=== PATIENT | male | born 1960 | race Caucasian/White ===

== ENCOUNTER 2022-04-14 18:31 | Emergency (ER) | payer BC, SELFPAY ==
[2022-04-14 19:08] VITALS: BP 163/93; PULSE 73; RESP 16; TEMP 36.3; O2SAT 97; BMI 28.8
--- NOTE | 2022-04-14 19:19 | ED_ITS ---
HPI - Dizziness General: Chief Complaint: Dizziness Stated Complaint: Fingers\Hands\Feet Numb Time Seen by Provider: 04/14/22 19:19 History of Present Illness: HPI Narrative: Mr. Daily is a 61-year-old gentleman without significant past medical history presenting to the emergency department due to dizziness and sensory changes in his very distal extremities. He reports a somewhat complex recent history approximately 4 weeks ago had upper respiratory symptoms and was initially diagnosed with COVID however subsequently diagnosed with a sinus infection which was treated with antibiotics. He felt improved after the antibiotics and had recent dental work for which he completed another course of antibiotics. Additionally they are visiting from [place] of state and had a recent [address] He reports yesterday having onset of dizziness which is a spinning and unsteady feeling worse with standing and trying to ambulate. Additionally notes his fingers and toes will become numb at the tips when he ambulates as well. He denies associated neck pain or back pain. He denies similar frequent episodes in the past. Intensity symptoms when present is moderate to severe. Course has persisted. No other specific changes in health, exacerbating, or alleviating factors identified. Onset (ago): hour(s) Timing: gradual onset Severity: moderate Context: change in body position, recent illness and other History of similar symptoms: No Exacerbating factors: movement/ambulation and change in body position Relieving factors: nothing Associated symptoms: Reports other Review of Systems General: Reports: 10 or more systems reviewed and unremarkable except in HPI and below [facility] ED PFSH: Medical History HTN (hypertension) Surgical History History of dental surgery Family History Other Diabetes Social History Smoking and tobacco status: never smoked Alcohol intake: never Substance/Drug Use: never Household members: spouse Housing: House Physical Exam Const: COMMON NORMALS: patient oriented x3 and alert GENERAL APPEARANCE: cooperative and well developed HENMT: COMMON NORMALS: normocephalic, atraumatic and TM's normal bilaterally HEAD & SCALP: normocephalic and atraumatic TYMPANIC MEMBRANE: TM's normal bilaterally THROAT: posterior oropharynx normal Eye: COMMON NORMALS: conjunctivae normal CONJUNCTIVA: Yes conjunctivae normal SCLERA: sclerae normal Neck/C-Spine: COMMON NORMALS: supple GENERAL: Yes trachea midline Resp: COMMON NORMALS: clear to auscultation bilaterally EFFORT & INSPECTION: Yes able to speak in complete sentences AUSCULTATION: clear to auscultation bilaterally Cardio: COMMON NORMALS: regular rate and regular rhythm RATE: regular rate RHYTHM: regular rhythm GI: COMMON NORMALS: Soft to palpation PALPATION: Yes Soft to palpation and No Tenderness to palpation present (GI) Extremity: GENERAL: Yes normal exam except as noted and No edema Neuro: COMMON NORMALS: patient oriented x3, CN's II-XII intact bilaterally, moves all extremities, no focal motor deficits and gait normal; negative for no sensory deficits noted (Subjective very distal finger and toe sensory changes, no isolated nerve di) SENSORIUM/ORIENTATION: Yes alert and No Orientation impaired Psych: COMMON NORMALS: mental status grossly normal and Normal thought process present THOUGHT PROCESS: Normal thought process present Course Vital Signs: Vital signs: Vital Signs Temperature 97.4 F L 04/14/22 19:08 Pulse Rate 74 04/14/22 23:55 Respiratory Rate 16 04/14/22 23:55 Blood Pressure 156/89 04/14/22 23:55 Pulse Oximetry 98 04/14/22 23:55 Oxygen Delivery Me thod 04/14/22 19:08 [facility] - Dizziness Medical Decision Making 61-year-old gentleman, presenting with dizziness that is somewhat positional. on exam also endorses bilateral upper and lower extremity end distal sensory changes, no appreciable weakness. i cannot elicit dizziness on exam. no objective findings. Description of dizziness seem to be more vertiginous in nature though in absence of reproducible symptoms somewhat unclear and certainly requires further ED work-up. Labs with no significant hematologic or metabolic abnormalities to explain symptoms. Rapid flu and COVID-negative. CT and CTA negative for acute pathology to explain symptoms, age-appropriate atherosclerotic disease extracranial and intracranial. The patient did have some improvement with fluids, magnesium, meclizine, Reglan, Benadryl. Is on ED evaluation at this point the exact cause of symptoms is unclear though likely vertiginous in nature. The results of ED evaluation were discussed with the patient including prescriptions and/or symptomatic cares (if applicable) including appropriate and responsible use, followup plan, and return precautions. The patient verbalized understanding and felt safe for discharge. Medical Records I reviewed the patient's medical records. Lab Data I reviewed the patient's lab results. 04/14/22 20:20 04/14/22 20:20 Radiology Impressions Head/Neck CTA 04/14/22 19:32 IMPRESSION: 1. No large vessel stenosis or occlusion. 2. Mild diffuse atherosclerotic disease, age-appropriate. IMPRESSION: 1. No stenosis or occlusion. 2. Mild diffuse atherosclerotic disease, age-appropriate. REFERENCES: NASCET CRITERIA. The degree of stenosis in the cervical segment of the internal carotid artery is based on NASCET criteria. Normal is no stenosis. Mild is less than 50% stenosis. Moderate is 50-69% stenosis. Severe is 70% to 99% stenosis. Total occlusion is no detectable patent lumen. Laboratory Results WBC 8.2 10^3/uL (4.0-10.0) 04/14/22 20:20 RBC 4.90 10^6/uL (4.1-5.3) 04/14/22 20:20 Hgb 15.3 g/dL (11.7-16.6) 04/14/22 20:20 Hct 44.4 % (42.0-52.0) 04/14/22 20:20 MCV 90.6 fl (80-94) 04/14/22 20:20 MCH 31.2 pg (28.0-34.0) 04/14/22 20:20 MCHC 34.5 g/dL (30.0-36.0) 04/14/22 20:20 RDW 12.3 % (12.1-15.1) 04/14/22 20:20 Plt Count 228 10^3/cmm (130-400) 04/14/22 20:20 MPV 8.9 fL (7.4-10.4) 04/14/22 20:20 Neut % (Auto) 58.9 % 04/14/22 20:20 Lymph % (Auto) 29.7 % 04/14/22 20:20 [place] % (Auto) 8.0 % 04/14/22 20:20 Eos % (Auto) 2.7 % 04/14/22 20:20 Baso % (Auto) 0.5 % 04/14/22 20:20 Neut # (Auto) 4.83 10^3/uL (1.8-7.7) 04/14/22 20:20 Lymph # (Auto) 2.4 10^3/uL (0.8-4.8) 04/14/22 20:20 [place] # (Auto) 0.7 10^3/uL (0.2-0.9) 04/14/22 20:20 Eos # (Auto) 0.2 10^3/uL (0.0-0.8) 04/14/22 20:20 Baso # (Auto) 0.0 10^3/uL (0.0-0.1) 04/14/22 20:20 Nucleated RBC % (auto) 0 % 04/14/22 20:20 Nucleated RBCs # 0.0 /100WBC 04/14/22 20:20 Sodium 136 mmol/L (136-145) 04/14/22 20:20 Potassium 4.1 mmol/L (3.5-5.1) 04/14/22 20:20 Chloride 102 mmol/L (98-107) 04/14/22 20:20 Carbon Dioxide 22 mmol/L (22-29) 04/14/22 20:20 Anion Gap 16.1 (5-19) 04/14/22 20:20 BUN 12 mg/dL (8-23) 04/14/22 20:20 Creatinine 0.8 mg/dL (0.7-1.2) 04/14/22 20:20 GFR Calculation 98.0 mL/min (90-130) 04/14/22 20:20 Glucose 102 mg/dL (65-115) 04/14/22 20:20 Calculated Osmolality 282 mOsm/kg (285-295) L 04/14/22 20:20 Calcium 9.9 mg/dL (8.5-10.5) 04/14/22 20:20 Total Bilirubin 0.3 mg/dL (0.15-1.2) 04/14/22 20:20 AST 20 U/L (0-40) 04/14/22 20:20 ALT 21 U/L (0-41) 04/14/22 20:20 Alkaline Phosphatase 86 U/L (40-130) 04/14/22 20:20 Total Protein 7.0 g/dL (6.6-8.7) 04/14/22 20:20 Albumin 4.1 g/dL (3.5-5.2) 04/14/22 20:20 Globulin 2.9 g/dL (1.3-4.6) 04/14/22 20:20 TSH 1.21 uIU/mL (0.27-4.20) 04/14/22 20:20 Influenza Type A Ag negative (Negative) 04/14/22 22:19 Influenza Type B Ag negative (Negative) 04/14/22 22:19 SARS-CoV-2 Ag (Rapid) negative (Negative) 04/14/22 22:19 Discharge Plan Discharge Patient Disposition: Home Clinical Impression: Dizziness, Paresthesia of both hands, Paresthesia of both feet Condition: Stable Prescriptions: New meclizine 25 mg tablet 25 mg PO TID PRN (Reason: dizziness) Qty: 20 0RF ondansetron 4 mg tablet,disintegrating 4 mg PO Q8H PRN (Reason: nausea and vomiting) Qty: 15 0RF No Action Tylenol 325 mg Tablet 650 mg PO QID PRN (Reason: Pain) allopurinol 300 mg Tablet 300 mg PO DAILY Discharge Orders: Discharge ED (Routine); Ordered 04/14/22 Ordered By: Juan Manuel Lin Discharge Diet: Usual diet Discharge Activity: Increase activity as tolerated Patient Instructions: Vertigo (ED), Paresthesia (ED), Dizziness (ED) Activity Restrictions/Additional Instructions: Thank you for visiting the emergency department. You were seen and evaluated for dizziness and paresthesias. The exact cause of your symptoms is unclear though does not appear to need hospitalization at this time. Please follow-up with your primary care provider. If dizziness episodes persist you may be referred for vestibular therapy. Return to the emergency department for uncontrolled symptoms or anything else that you are concerned about and feel needs emergency department evaluation. Coding Level of Care Code ED [employer] for Juan J Vergara
--- NOTE | 2022-04-14 19:32 | CTR_ITS ---
PROCEDURE INFORMATION: Exam: CTA Head With Contrast, Arteriography Exam date and time: 04/14/2022 8:36 PM Age: 61 years old Clinical indication: Dizziness and giddiness and numbness; Additional info: Dizziness, tingling in bilateral distal extremities TECHNIQUE: Imaging protocol: Computed tomographic angiography of the head with contrast. Exam focused on the arteries. 3D rendering (Not supervised by radiologist): MIP and/or 3D reconstructed images were created by the technologist. Radiation optimization: All CT scans at this facility use at least one of these dose optimization techniques: automated exposure control; mA and/or kV adjustment per patient size (includes targeted exams where dose is matched to clinical indication); or iterative reconstruction. Contrast material: OMNI 350; Contrast volume: 100 ml; Contrast route: INTRAVENOUS (IV); COMPARISON: No relevant prior studies available. RADIATION DOSE METRICS: Total DLP (mGy-cm): 1012.97 FINDINGS: ANTERIOR CIRCULATION: Right internal carotid artery: Intracranial segment is patent with no significant stenosis. No aneurysm. Right middle cerebral artery: No occlusion or significant stenosis. No aneurysm. Right anterior cerebral artery: No occlusion or significant stenosis. No aneurysm. Left internal carotid artery: Intracranial segment is patent with no significant stenosis. No aneurysm. Left middle cerebral artery: No occlusion or significant stenosis. No aneurysm. Left anterior cerebral artery: No occlusion or significant stenosis. No aneurysm. POSTERIOR CIRCULATION: Right vertebral artery: No occlusion or significant stenosis. No aneurysm. Left vertebral artery: No occlusion or significant stenosis. No aneurysm. Basilar artery: No occlusion or significant stenosis. No aneurysm. Right posterior cerebral artery: No occlusion or significant stenosis. No aneurysm. Left posterior cerebral artery: No occlusion or significant stenosis. No aneurysm. Brain: No focal hemorrhage or midline shift identified. Mild age-related changes, age-appropriate. Cerebral ventricles: No evidence of ventriculomegaly or hydrocephalus. The ventricles seem age-appropriate. Bones/joints: Unremarkable. No acute fracture. Soft tissues: Unremarkable. PROCEDURE INFORMATION: Exam: CTA Neck With Contrast Exam date and time: 04/14/2022 8:36 PM Age: 61 years old Clinical indication: Dizziness and giddiness and numbness; Additional info: Dizziness, tingling in bilateral distal extremities TECHNIQUE: Imaging protocol: Computed tomographic angiography of the neck with contrast. 3D rendering (Not supervised by radiologist): MIP and/or 3D reconstructed images were created by the technologist. Radiation optimization: All CT scans at this facility use at least one of these dose optimization techniques: automated exposure control; mA and/or kV adjustment per patient size (includes targeted exams where dose is matched to clinical indication); or iterative reconstruction. Contrast material: OMNI 350; Contrast volume: 100 ml; Contrast route: INTRAVENOUS (IV); COMPARISON: No relevant prior studies available. RADIATION DOSE METRICS: Total DLP (mGy-cm): 1012.97 FINDINGS: Right common carotid artery: No stenosis. No dissection or occlusion. Right internal carotid artery: No stenosis of the extracranial segment. No dissection or occlusion. Right external carotid artery: No occlusion or high-grade stenosis identififed. Left common carotid artery: No stenosis. No dissection or occlusion. Left internal carotid artery: No stenosis of the extracranial segment. No dissection or occlusion. Left external carotid artery: No occlusion or high-grade stenosis identififed. Right vertebral artery: No stenosis. No dissection or occlusion. Left vertebral artery: No stenosis. No dissection or occlusion. Soft tissues: No significant soft tissue swelling or other acute finding noted. Bones/joints: No acute fracture. Lungs: Slight upper lung atelectasis or scarring. CT/CT angio headneck* [id number] IMPRESSION: 1. No large vessel stenosis or occlusion. 2. Mild diffuse atherosclerotic disease, age-appropriate. IMPRESSION: 1. No stenosis or occlusion. 2. Mild diffuse atherosclerotic disease, age-appropriate. REFERENCES: NASCET CRITERIA. The degree of stenosis in the cervical segment of the internal carotid artery is based on NASCET criteria. Normal is no stenosis. Mild is less than 50% stenosis. Moderate is 50-69% stenosis. Severe is 70% to 99% stenosis. Total occlusion is no detectable patent lumen.
[2022-04-14 20:30] LABS: Basophils % 0.5 %; Eosinophils # 0.2 10^3/uL (0.0-0.8); Eosinophils % 2.7 %; Hematocrit 44.4 % (42.0-52.0); Hemoglobin 15.3 g/dL (11.7-16.6); Lymphocytes # 2.4 10^3/uL (0.8-4.8); Lymphocytes % 29.7 %; Mean Corpuscular HGB Conc 34.5 g/dL (30.0-36.0); Mean Corpuscular Hemoglobin 31.2 pg (28.0-34.0); Mean Corpuscular Volume 90.6 fl (80-94); Mean Platelet Volume 8.9 fL (7.4-10.4); Monocytes # 0.7 10^3/uL (0.2-0.9); Neutrophils # 4.83 10^3/uL (1.8-7.7); Neutrophils % 58.9 %; Nucleated Red Blood Cells % 0 %; Platelet Count 228 10^3/cmm (130-400); Red Cell Distribution Width 12.3 % (12.1-15.1); White Blood Count 8.2 10^3/uL (4.0-10.0)
[2022-04-14] MEDS: meclizine 25 mg tablet PO (20:33)
[2022-04-14] MEDS: sodium chloride 0.9% 1,000 ML 999 ML IV (20:33)
[2022-04-14] MEDS: iohexol 350 mg/mL 500 mL Btl (per mL) IV (20:38)
[2022-04-14 21:07] LABS: Alanine Aminotransferase 21 U/L (0-41); Albumin Level 4.1 g/dL (3.5-5.2); Alkaline Phosphatase 86 U/L (40-130); Anion Gap 16.1 (5-19); Aspartate Amino Transferase 20 U/L (0-40); Blood Urea Nitrogen 12 mg/dL (8-23); Calcium 9.9 mg/dL (8.5-10.5); Carbon Dioxide 22 mmol/L (22-29); Chloride 102 mmol/L (98-107); Globulin 2.9 g/dL (1.3-4.6); Glucose 102 mg/dL (65-115); Osmolality Calculated 282 mOsm/kg (285-295); Potassium 4.1 mmol/L (3.5-5.1); Sodium 136 mmol/L (136-145); Thyroid Stimulating Hormone 1.21 uIU/mL (0.27-4.20); Total Bilirubin 0.3 mg/dL (0.15-1.2)
[2022-04-14] MEDS: metoclopramide 5 mg/mL SDV 2 mL IVP (22:20)
[2022-04-14] MEDS: diphenhydrAMINE 50 mg/mL SDV 1mL 12.5 MG IVP (22:20)
[2022-04-14 23:09] LABS: Influenza A by IFA negative (Negative); Influenza B by IFA negative (Negative); SARS Covid-2 Antigen negative (Negative)
[2022-04-14 23:55] VITALS: BP 156/89; PULSE 74; RESP 16; O2SAT 98
== END 2022-04-14 23:45 | disposition home or self-care (01) ==
PROVIDERS: Emergency Provider Emergency Medicine
DX: R42 Dizziness and giddiness (principal); R20.2 Paresthesia of skin; Z20.822 Contact with and (suspected) exposure to COVID-19; I10 Essential (primary) hypertension
CPT/HCPCS: 70496; 70498; 80053; 84443; 85025; 87426; 87804; 96365; 96375; 99285; J1200; J2765; J3475; J7030; J8597; Q9967

== ENCOUNTER 2022-04-15 18:08 | Inpatient (IN) | payer BC, SELFPAY ==
[2022-04-15] VITALS (22 sets, daily range): BP systolic 120–188; BP diastolic 80–123; PULSE 66–95; RESP 14–24; TEMP 36.6; O2SAT 93–99; BMI 28.8
--- NOTE | 2022-04-15 20:48 | ED_ITS ---
HPI - Extremity Problem General: Chief complaint: Extremity Problem,Nontraumatic Stated complaint: numbness in bilateral hands and feet, cp, sob Time Seen by Provider: 04/15/22 19:35 History of Present Illness: 61-year-old gentleman returns to the emergency department today for further evaluation of continued dizziness with worsening numbness and difficulty ambulating. Patient was seen last night for similar without clear etiology identified on ED evaluation and some improvement with ED treatment as if symptoms are vertiginous. Patient has unfortunately developed more progressive sensory changes, back pain, and difficulty ambulating. Denies any other new focal neurologic findings. Intensity symptoms has become severe. Denies similar episodes in the past. Again symptoms were preceded by a somewhat complex course of infection. Onset (ago): day(s) Location: left, right, upper extremity and lower extremity Quality: other Relieving factors: nothing Exacerbating factors: range of motion, weight bearing, walking and exertion Associated symptoms: Reports chest pain, short of breath and other Review of Systems General: Reports: 10 or more systems reviewed and unremarkable except in HPI and below Card: Reports: chest pain [facility] ED PFSH: Medical History HTN (hypertension) Surgical History History of dental surgery Family History Other Diabetes Social History Smoking and tobacco status: never smoked Alcohol intake: never Substance/Drug Use: never Household members: spouse Housing: House Physical Exam Const: COMMON NORMALS: alert GENERAL APPEARANCE: cooperative and well developed HENMT: COMMON NORMALS: normocephalic and atraumatic HEAD & SCALP: normocephalic and atraumatic THROAT: posterior oropharynx normal Eye: COMMON NORMALS: conjunctivae normal CONJUNCTIVA: Yes conjunctivae normal SCLERA: sclerae normal Neck/C-Spine: COMMON NORMALS: supple GENERAL: Yes trachea midline Resp: COMMON NORMALS: clear to auscultation bilaterally EFFORT & INSPECTION: Yes able to speak in complete sentences AUSCULTATION: clear to auscultation bilaterally Cardio: COMMON NORMALS: regular rate and regular rhythm RATE: regular rate RHYTHM: regular rhythm GI: COMMON NORMALS: Soft to palpation PALPATION: Yes Soft to palpation and No Tenderness to palpation present (GI) PERCUSSION: normal to percussion Extremity: GENERAL: Yes normal exam except as noted and No edema Neuro: COMMON NORMALS: moves all extremities SENSORIUM/ORIENTATION: Yes alert and No Orientation impaired OTHER: Significant symmetric upper and lower extremity muscle weakness limiting tato ent's ability to ambulate. Gait is somewhat clumsy due to weakness. Subjective sensory changes have progressed mildly and now involve proximal midfoot and base of fingers. Significantly decreased lower extremity reflexes. Psych: COMMON NORMALS: mental status grossly normal and Normal thought process present THOUGHT PROCESS: Normal thought process present Procedures Lumbar Puncture Time Out Performed: Yes Patient Position: upright Skin Prep: Povidone-Iodine 1% Local Anesthetic: lidocaine 2% and with epi Amount of anesthesia used (mL): 6 Spinal Needle Gauge: 20G Interspace Used: L3-L4 Fluid Initially Obtained: clear Complications: none Course Vital Signs: Vital signs: Vital Signs Temperature 98.2 F 04/20/22 20:00 Pulse Rate 96 04/21/22 19:44 Respiratory Rate 22 H 04/21/22 19:44 Blood Pressure 143/75 04/21/22 16:30 Pulse Oximetry 92 04/21/22 19:44 Oxygen Delivery Me thod 04/21/22 19:44 Oxygen Flow Rate 30 04/20/22 08:55 Fraction of Inspir ed Oxygen 40 04/20/22 20:00 MDM - Extremity (Nontraumatic) Medical Decision Making 61-year-old gentleman presenting with worsening gait disturbance and sensory changes in upper and lower extremity distally. No cranial nerve abnormalities or nystagmus noted on exam. Patient does have diminished reflexes and ataxic gait. The symptoms are progressed since yesterday and now involves weakness. Prior labs and imaging reviewed. Labs notable for mild hemoconcentration/leukocytosis. Metabolic panel without acute derangement to explain symptoms. No UTI. Viral panel negative. Given recent viral syndrome atypical Guillain-Covarrubias? is a possibility and therefore we will proceed with lumbar puncture. Patient provided informed consent. Procedure was performed without apparent complication. CSF studies pending at time of admission however given patient's progression of symptoms of profound weakness patient requires inpatient treatment. Upon review patient does have elevated protein without clear etiology such as other abnormality and therefore Guillain-Covarrubias? is a strong consideration. The results of ED evaluation were discussed with the patient including plan for admission due to requirement for level of care not available if discharged to prevent significant worsening/deterioration. Patient agreeable with plan. Discussed with hospitalist service who was agreeable to admit patient. Medical Records I reviewed the patient's medical records. Lab Data I reviewed the patient's lab results. 04/15/22 20:28 04/15/22 20:28 Radiology Impressions Head MRI 04/16/22 02:09 IMPRESSION: 1. No diffusion-weighted abnormality or acute infarct. 2. Very minimal atrophy and small vessel ischemic disease. Cervical Spine MRI 04/16/22 08:53 IMPRESSION: 1. No significant central or foraminal stenosis. 2. No signal abnormality within the cord. 3. Mild facet arthritis as above. No stenosis. KUB X-Ray 04/18/22 08:50 IMPRESSION: 1. Bowel gas pattern is mildly distended but nonobstructive. 2. Mild stool burden. Chest CTA 04/18/22 12:00 IMPRESSION: There is consolidation in the right middle and bilateral lower lobes of the lung consistent with atelectasis and/or pneumonia. Head CT 04/18/22 12:10 IMPRESSION: No acute intracranial abnormality. Chest X-Ray 04/20/22 08:31 IMPRESSION: 1. No acute process noted. 2. Chronic right basal plaque atelectasis. Decreased lung volumes secondary to limited inspiration. No significant change. Laboratory Results WBC 10.5 10^3/uL (4.0-10.0) H 04/15/22 20: RBC 5.34 10^6/uL (4.1-5.3) H 04/15/22 20:28 Hgb 16.5 g/dL (11.7-16.6) 04/15/22 20: Hct 48.1 % (42.0-52.0) 04/15/22 20: MCV 90.1 fl (80-94) 04/15/22 20: MCH 30.9 pg (28.0-34.0) 04/15/22 20: MCHC 34.3 g/dL (30.0-36.0) 04/15/22 20: RDW 12.2 % (12.1-15.1) 04/15/22 20: Plt Count 255 10^3/cmm (130-400) 04/15/22 20: MPV 10.1 fL (7.4-10.4) 04/15/22 20: Neut % (Auto) 67.6 % 04/15/22 20: Lymph % (Auto) 22.4 % 04/15/22 20: [place] % (Auto) 7.7 % 04/15/22 20: Eos % (Auto) 1.6 % 04/15/22 20: Baso % (Auto) 0.5 % 04/15/22 20: Neut # (Auto) 7.07 10^3/uL (1.8-7.7) 04/15/22: Lymph # (Auto) 2.3 10^3/uL (0.8-4.8) 04/15/22: [place] # (Auto) 0.8 10^3/uL (0.2-0.9) 04/15/22: Eos # (Auto) 0.2 10^3/uL (0.0-0.8) 04/15/22 20: Baso # (Auto) 0.1 10^3/uL (0.0-0.1) 04/15/22: Nucleated RBC % (auto) 0 % 04/15/22: Nucleated RBCs # 0.0 /100WBC 04/15/22: ESR 16 mm/hr (0-10) H 04/15/22 20: Sodium 136 mmol/L (136-145) 04/15/22 20: Potassium 3.7 mmol/L (3.5-5.1) 04/15/22 20: Chloride 99 mmol/L (98-107) 04/15/22 20: Carbon Dioxide 24 mmol/L (22-29) 04/15/22: Anion Gap 16.7 (5-19) 04/15/22 20: BUN 8 mg/dL (8-23) 04/15/22 20: Creatinine 0.8 mg/dL (0.7-1.2) 04/15/22 20: GFR Calculation 98.0 mL/min (90-130) 04/15/22 20: Glucose 104 mg/dL (65-115) 04/15/22 20:28 Calculated Osmolality 281 mOsm/kg (285-295) L 04/15/22 20: Calcium 10.3 mg/dL (8.5-10.5) 04/15/22 20: Magnesium 2.0 mg/dL (1.7-2.3) 04/15/22 20:28 Total Bilirubin 0.4 mg/dL (0.15-1.2) 04/15/22 20: AST 21 U/L (0-40) 04/15/22 20: ALT 25 U/L (0-41) 04/15/22 20: Alkaline Phosphatase 91 U/L (40-130) 04/15/22 20: C-Reactive Protein 3.1 mg/L (0.0-4.9) 04/15/22 20: Total Protein 7.7 g/dL (6.6-8.7) 04/15/22 20: Albumin 4.4 g/dL (3.5-5.2) 04/15/22 20: Globulin 3.3 g/dL (1.3-4.6) 04/15/22 20: Urine Color Yellow (Yellow) 04/15/22 21:35 Urine Appearance Clear (CLEAR) 04/15/22 21:35 Urine pH 7 (5-7) 04/15/22 21:35 Ur Specific Bath 1.010 (1.005-1.030) 04/15/22 21:35 Urine Protein Neg (Negative) 04/15/22 21:35 Urine Glucose (UA) Norm (Normal) 04/15/22 21:35 Urine Ketones Negative (Negative) 04/15/22 21:35 Urine Blood Neg (Negative) 04/15/22 21:35 Urine Nitrate Negative (Negative) 04/15/22 21:35 Urine Bilirubin Neg (Negative) 04/15/22 21:35 Urine Urobilinogen Norm mg/dL (Negative) 04/15/22 21:35 Ur Leukocyte Esterase Negative (Negative) 04/15/22 21:35 Fluid LDH 21 U/L 04/15/22 23:30 CSF Appearance Clear (CLEAR) 04/15/22 23:30 CSF Color Colorless (COLORLESS) 04/15/22 23:30 CSF WBC 2 /uL (0-5) 04/15/22 23:30 CSF RBC 0 10^3/uL (0-0) 04/15/22 23:30 CSF Mononuclear # Auto 0.001 10^3/uL (50-90) L 04/15/22 23:30 CSF Mononuclear WBCs % 50 % (50-90) 04/15/22 23:30 CSF Polynuclear WBCs # 0.001 10^3/uL (0-10) 04/15/22 23:30 CSF Polynuclear WBCs % 50 % (0-10) H 04/15/22 23:30 CSF Glucose 65 mg/dL (40-70) 04/15/22 23:30 CSF Total Protein 70 mg/dL (15-45) H 04/15/22 23:30 Nasal Influ A H1 2009 PCR Not detected (NOT DETECT) 04/15/22 21:50 Adenovirus (PCR) Not detected (NOT DETECT) 04/15/22 21:50 C. pneumoniae DNA (PCR) Not detected (NOT DETECT) 04/15/22 21:50 Coronavirus 229E (PCR) Not detected (NOT DETECT) 04/15/22 21:50 Human Metapneumovir PCR Not detected (NOT DETECT) 04/15/22 21:50 Influenza A (H1) PCR Not detected (NOT DETECT) 04/15/22 21:50 Influenza A (H3) PCR Not detected (NOT DETECT) 04/15/22 21:50 Influenza Type A (PCR) Not detected (NOT DETECT) 04/15/22 21:50 Influenza Type B (PCR) Not detected (NOT DETECT) 04/15/22 21:50 M. pneumoniae (PCR) Not detected (NOT DETECT) 04/15/22 21:50 Parainfluenza 1 (PCR) Not detected (NOT DETECT) 04/15/22 21:50 Parainfluenza 2 (PCR) Not detected (NOT DETECT) 04/15/22 21:50 Parainfluenza 3 (PCR) Not detected (NOT DETECT) 04/15/22 21:50 Parainfluenza 4 (PCR) Not detected (NOT DETECT) 04/15/22 21:50 RSV Type A (PCR) Not detected (NOT DETECT) 04/15/22 21:50 RSV Type B (PCR) Not detected (NOT DETECT) 04/15/22 21:50 Entero/Rhino (PCR) Not detected (NOT DETECT) 04/15/22 21:50 SARS-CoV-2 (PCR) Not detected (NOT DETECT) 04/15/22 21:50 Discharge Plan Discharge Patient Disposition: Placed in Observation Admit Provider: Ramesh Medel Clinical Impression: Dizziness, Paresthesia of both hands, Paresthesia of both feet, Unable to ambulate Coding Level of Care Code ED [employer] Dispatcher for Juan J Vergara
[2022-04-15 21:06] LABS: Basophils # 0.1 10^3/uL (0.0-0.1); Basophils % 0.5 %; Eosinophils # 0.2 10^3/uL (0.0-0.8); Eosinophils % 1.6 %; Hematocrit 48.1 % (42.0-52.0); Hemoglobin 16.5 g/dL (11.7-16.6); Lymphocytes # 2.3 10^3/uL (0.8-4.8); Lymphocytes % 22.4 %; Mean Corpuscular HGB Conc 34.3 g/dL (30.0-36.0); Mean Corpuscular Hemoglobin 30.9 pg (28.0-34.0); Mean Corpuscular Volume 90.1 fl (80-94); Mean Platelet Volume 10.1 fL (7.4-10.4); Monocytes # 0.8 10^3/uL (0.2-0.9); Monocytes % 7.7 %; Neutrophils # 7.07 10^3/uL (1.8-7.7); Neutrophils % 67.6 %; Nucleated Red Blood Cells % 0 %; Platelet Count 255 10^3/cmm (130-400); Red Blood Count 5.34 10^6/uL (4.1-5.3); Red Cell Distribution Width 12.2 % (12.1-15.1); White Blood Count 10.5 10^3/uL (4.0-10.0)
[2022-04-15] MEDS: sodium chloride 0.9% 1,000 ML 999 ML IV (21:09)
[2022-04-15 21:14] LABS: Erythrocyte Sedimentation Rate 16 mm/hr (0-10)
[2022-04-15 21:17] LABS: Alanine Aminotransferase 25 U/L (0-41); Albumin Level 4.4 g/dL (3.5-5.2); Alkaline Phosphatase 91 U/L (40-130); Anion Gap 16.7 (5-19); Aspartate Amino Transferase 21 U/L (0-40); Blood Urea Nitrogen 8 mg/dL (8-23); C Reactive Protein 3.1 mg/L (0.0-4.9); Calcium 10.3 mg/dL (8.5-10.5); Carbon Dioxide 24 mmol/L (22-29); Chloride 99 mmol/L (98-107); Globulin 3.3 g/dL (1.3-4.6); Glucose 104 mg/dL (65-115); Osmolality Calculated 281 mOsm/kg (285-295); Potassium 3.7 mmol/L (3.5-5.1); Sodium 136 mmol/L (136-145); Total Bilirubin 0.4 mg/dL (0.15-1.2); Total Protein 7.7 g/dL (6.6-8.7)
[2022-04-15] MEDS: acetaminophen 500 mg Tablet 1000 MG PO (21:21)
[2022-04-15 21:52] LABS: Add Urine Microscopic? NO; Charge for UA Resulting for Rev
[2022-04-15 22:35] LABS: Bilirubin Urine Neg (Negative); Blood Urine Neg (Negative); Glucose Urine UA Norm (Normal); Ketones Urine Negative (Negative); Leukocyte Esterase Urine Negative (Negative); Nitrate Urine Negative (Negative); Protein Urine Neg (Negative); Urine Appearance Clear (CLEAR); Urine Color Yellow (Yellow); Urobilinogen Urine Norm (Negative); pH Urine 7 (5-7)
[2022-04-15] MEDS: morphine 4 mg/mL SDV 1 mL IVP (22:47)
[2022-04-15 23:44] LABS: Cyto Order Verification Order Verified
[2022-04-16] VITALS (31 sets, daily range): BP systolic 120–180; BP diastolic 74–111; PULSE 57–116; RESP 16–26; TEMP 36.4–36.8; O2SAT 88–97
--- NOTE | 2022-04-16 | P.HP_ITS ---
Providers/Chief Complaint Chief Complaint: numbness in bilateral hands and feet, cp, sob History of Present Illness Aman Daily is a 61 year old male who is from [place], visiting his daughter in [place], he drove from [place] with his , presented twice in the ER with chief complaint of not been able to walk and dizziness. Patient is stating that he was diagnosed with COVID-19 pneumonia 4 weeks ago and then he suffered with sinus infection for which she required antibiotics and 2 weeks ago he had dental procedure done, he was given another course of antibiotics, for last 3 to 4 days he has been noticing numbness and tingling in his legs which has gotten worse, he started noticing same symptoms and is fingers in a few days, he started noticing generalized weakness, dizziness. Because of the symptoms he was seen in the ER yesterday, CT head CT head and neck unremarkable he was discharged home with meclizine however at home his symptoms worsened as per the family he is not able to get up on his own and walk without falling. His daughter and son-in-law helped him to get up from the bed. Today he is also experiencing back pain no urinary or bowel incontinence. At the time of my evaluation patient does not have any focal deficits No sensations around ankles, Babinski negative, proximal muscle weakness, reflexes equivocal, patient is not able to bear weight on his legs because of probably muscle weakness, he becomes dizzy as when he gets up closure of eyes does not make his dizziness worse Hemodynamically stable hypertension noted CBC BMP unremarkable, ESR 16 Spinal tap was done by the ER physician COVID panel negative CSF is showing high protein, normal glucose For concern of Guillian Covarrubias? syndrome he has been admitted to the hospital, azalea hughes is stating that he has been experiencing diarrhea on and off for last few days as well Review of Systems Const: Denies: fever(s) Eyes: Denies: change in vision ENMT: Denies: throat pain Card: Denies: chest pain Resp: Denies: dyspnea GI: Denies: abdominal pain : Denies: flank pain Musc: Reports: muscle cramps and muscle weakness Skin/Breast: Denies: rash Neuro: Reports: weakness in extremities, difficulty walking, frequent falls and dizziness Psych: Denies: anxiety Endo: Denies: polyuria Clive/Lymph: Denies: easy bruising All/Imm: Denies: urticaria Medications/Allergies Home Medications Medication Instructions Recorded Confirmed Last Taken Type meclizine 25 mg tablet 25 mg PO TID PRN dizziness #20 tabs 04/14/22 Unknown Rx ondansetron 4 mg disintegrating 4 mg PO Q8H PRN nausea and 04/14/22 Unknown Rx tablet vomiting #15 tabs Allergies Allergy/AdvReac Type Severity Reaction Status Date / Time No Known Allergies Allergy Verified 04/14/22 19:07 PFSH Acute PFSH: Medical History (Updated 04/16/22 @ 01:27 by Juan Manuel Lin MD) HTN (hypertension) Surgical History (Updated 04/16/22 @ 01:23 by Ramesh Medel MD) History of dental surgery Family History (Updated 04/16/22 @ 01:23 by Ramesh Medel MD) Other Diabetes Social History (Updated 04/16/22 @ 01:24 by Ramesh Medel MD) Smoking and tobacco status: never smoked Alcohol intake: never Substance/Drug Use: never Household members: spouse Housing: House Vitals/I&O/Wt Last Vital Signs Temp 97.9 F 04/15/22 18:12 Pulse 70 04/15/22 22:45 Resp 15 04/15/22 22:47 BP 154/80 04/15/22 22:45 Pulse Ox 96 04/15/22 22:45 O2 Del Method 04/15/22 21:00 Weight last 48 hrs Weight 86.183 kg Physical Exam Narrative: Patient is laying supine He is not able to put weight on his legs Proximal muscle weakness No sensations around ankles Reflexes equivocal He is able to lift his leg against gravity in the air for about 5 seconds No focal deficits No active respiratory stress Currently on room air Hypertensive Looks dehydrated Awake and alert Family at the bedside Romberg sign negative He gets dizzy as soon as he gets up Babinski negative No sensory level No acute motor weakness Patient is able to comprehend and speak appropriately Data 04/15/22 20:28 04/15/22 20:28 Micro: Microbiology 04/15/22 21:25 Blood Culture - Preliminary Blood SPECIMEN COLLECTED 04/15/22 21:27 Blood Culture - Preliminary Blood SPECIMEN COLLECTED A&P Assessment and plan (1) Dizziness: (2) Paresthesia of both hands: (3) Paresthesia of both feet: (4) Ataxia: Plan Proximal muscle weakness with dizziness numbness and tingling Recent sinus infection CT head CTA head and neck unremarkable CSF is showing high protein with normal white count His symptoms are correlating with early and late symptoms of Guillain-Covarrubias? This case was discussed with Dr. Lares by the ER physician If MRI head is negative most likely he will need IVIG 5-day regimen, Dr. Lares is not on-call but willing to talk with the medical team in the morning, I would only give him 1 dose of 4 mg of Decadron Prophylaxis Lovenox Cardiac diet Patient is showing autonomic dysfunction with hypotension No signs of cauda equina Romberg sign negative Check TSH and B12 Recent CTA head and neck unremarkable PT evaluation in the morning Full code Patient is from [facility] Medical Necessity Statement*: More than 2 midnights anticipated Time Spent in Patient Care: 40 Coding Level of Care Code Acute Hop Sorter for Chg Fwd Diagnoses Dizziness R42 Paresthesia of both hands R20.2 Paresthesia of both feet R20.2 Ataxia R27.0
[2022-04-16 00:18] LABS: CSF Mononuclear # 0.001 10^3/uL (50-90); Mononuclear WBC CSF % 50 % (50-90); Polynuclear Cells ,CSF # 0.001 10^3/uL (0-10); Polynuclear WBC CSF % 50 % (0-10); Red Blood Cell CSF 0 10^3/uL (0-0); White Blood Cell CSF 2 /uL (0-5)
[2022-04-16 00:28] LABS: Adenovirus Not Detected (NOT DETECT); Chlamydia Pneumoniae Not Detected (NOT DETECT); Coronavirus 229E,HKU1,NL63,OC4 Not Detected (NOT DETECT); Human Metapneumovirus Not Detected (NOT DETECT); Human Rhinovirus/Enterovirus Not Detected (NOT DETECT); Influenza A Not Detected (NOT DETECT); Influenza A H1 Not Detected (NOT DETECT); Influenza A H1-2009 Not Detected (NOT DETECT); Influenza A H3 Not Detected (NOT DETECT); Influenza B Not Detected (NOT DETECT); Mycoplasma Pneumoniae Not Detected (NOT DETECT); Parainfluenza Virus Type 1 Not Detected (NOT DETECT); Parainfluenza Virus Type 2 Not Detected (NOT DETECT); Parainfluenza Virus Type 3 Not Detected (NOT DETECT); Parainfluenza Virus Type 4 Not Detected (NOT DETECT); Respiratory Syncytial Virus A Not Detected (NOT DETECT); Respiratory Syncytial Virus B Not Detected (NOT DETECT); SARS-COV-2 Not Detected (NOT DETECT)
[2022-04-16 00:35] LABS: Glucose CSF 65 mg/dL (40-70); Total Protein CSF 70 mg/dL (15-45)
[2022-04-16 01:09] LABS: Appearance CSF CLEAR (CLEAR); Color CSF COLORLESS (COLORLESS); LDH Body Fluid 21 U/L
--- NOTE | 2022-04-16 02:09 | MR_ITS ---
WS: [id number] MRI BRAIN WITHOUT CONTRAST HISTORY: Dizzy COMPARISON: None available. TECHNIQUE: Diffusion imaging, multiplanar T1, T2 and FLAIR imaging obtained. No evidence for acute infarct or hemorrhage. Issa-white matter differentiation is normal. Very minimal atrophy and small vessel ischemic disease. No prior infarcts. Ventricles and extra-axial spaces are normal. No inferior displacement of cerebellar tonsils. The sella turcica and pituitary gland are unremarkabl e. Dural venous sinuses and nenana of Hyatt demonstrate no abnormality on this unenhanced studies. Paranasal sinuses: Small mucous retention cyst RIGHT maxillary sinus. Mastoid air cells: Normal. Calvarium and scalp: Intact. MR/MR head wo con* [id number] IMPRESSION: 1. No diffusion-weighted abnormality or acute infarct. 2. Very minimal atrophy and small vessel ischemic disease.
[2022-04-16] MEDS: dexamethasone 4 mg Tablet PO (02:17)
[2022-04-16] MEDS: acetaminophen 500 mg Tablet PO ×3 (02:17→23:38)
[2022-04-16] MEDS: enoxaparin 40 mg/0.4 mL Syringe SUBCUT (02:17)
--- NOTE | 2022-04-16 02:24 | PC.NURSE ---
Nurse was notified of high blood pressure 174/98.
--- NOTE | 2022-04-16 02:25 | PC.NURSE ---
Patient states he was recently on antibiotics and 600 mg Ibuprofen for dental implants and recently had a sinus infection and COVID but is over all of it and is no longer taking those medications.
[2022-04-16] MEDS: hyDRALAzine 20 mg/mL INJ 1 mL 10 MG IVP (02:45)
[2022-04-16] MEDS: temazepam 15 mg Capsule PO ×2 (03:10→22:58)
--- NOTE | 2022-04-16 05:26 | PC.NURSE ---
Addendum entered by Neelima John RN 04/16/22 06:08: 600 ml returned with straight cath. Original Note: After voiding voiding small amounts x3 (around 20 cc each time), bladder scan shows 750 ml. Straight cath x1 ordered.
[2022-04-16 05:29] LABS: Basophils % 0.3 %; Eosinophils # 0.1 10^3/uL (0.0-0.8); Hematocrit 44.8 % (42.0-52.0); Hemoglobin 15.4 g/dL (11.7-16.6); Lymphocytes # 1.1 10^3/uL (0.8-4.8); Mean Corpuscular HGB Conc 34.4 g/dL (30.0-36.0); Mean Corpuscular Volume 90.3 fl (80-94); Mean Platelet Volume 9.4 fL (7.4-10.4); Monocytes # 0.3 10^3/uL (0.2-0.9); Monocytes % 3.7 %; Neutrophils # 7.25 10^3/uL (1.8-7.7); Neutrophils % 82.8 %; Nucleated Red Blood Cells % 0 %; Platelet Count 255 10^3/cmm (130-400); Red Blood Count 4.96 10^6/uL (4.1-5.3); Red Cell Distribution Width 12.2 % (12.1-15.1); White Blood Count 8.8 10^3/uL (4.0-10.0)
[2022-04-16 06:13] LABS: Thyroid Stimulating Hormone 1.68 uIU/mL (0.27-4.20); Vitamin B12 150 pg/mL (232-1245)
--- NOTE | 2022-04-16 06:32 | PC.NURSE ---
Patient c/o shortness of breath. Lungs clear, oxygen saturation 98 percent on room air. Patient states I'm nervous about finding out what's going on. Will monitor.
[2022-04-16 06:40] LABS: Blood Urea Nitrogen 8 mg/dL (8-23); Calcium 9.6 mg/dL (8.5-10.5); Carbon Dioxide 21 mmol/L (22-29); Chloride 101 mmol/L (98-107); Glomerular Filtration Rate 114.3 mL/min (90-130); Glucose 123 mg/dL (65-115); Magnesium 1.9 mg/dL (1.7-2.3); Osmolality Calculated 280 mOsm/kg (285-295); Phosphorus 2.1 mg/dL (2.5-4.5); Sodium 135 mmol/L (136-145)
[2022-04-16] MEDS: ALPRAZolam 0.5 mg Tablet PO (08:51)
--- NOTE | 2022-04-16 08:53 | MR_ITS ---
WS: [id number] MRI CERVICAL SPINE NONCONTRAST HISTORY: numbness COMPARISON: None available. Technique: Multiplanar, multisequence noncontrast imaging of the cervical spine. Normal cervical alignment with no compression fracture or significant disc space narrowing. Signal within the cervical cord is normal. Visualized posterior fossa is unremarkable. Craniocervical junction, C1 and C2 relationship, odontoid process and soft tissues are normal. C2-C3: Very small LEFT foraminal osteophyte. No stenosis. C3-C4: Normal. C4-C5: Mild osteophytic ridging and facet arthritis. No stenosis. C5-C6: No significant stenosis. Mild facet arthritis. C6-C7: Mild facet arthritis. No stenosis. No disc protrusion. C7-T1: Normal. Paraspinal soft tissue are normal. MR/MR cervical spin wo con* [id number] IMPRESSION: 1. No significant central or foraminal stenosis. 2. No signal abnormality within the cord. 3. Mild facet arthritis as above. No stenosis.
[2022-04-16] MEDS: LORazepam 2 mg/mL INJ 1 mL 0.5 MG IVP (09:52)
--- NOTE | 2022-04-16 12:06 | XRR_ITS ---
PROCEDURE INFORMATION: Exam: XR Chest Exam date and time: 04/16/2022 12:25 PM Age: 61 years old Clinical indication: Shortness of breath; Patient HX: Follow up to lulu randolph numbness; Additional info: Shortness of breath, changed verbally by harris in medsurg to a 1v portable-cindy TECHNIQUE: Imaging protocol: Radiologic exam of the chest. Views: 1 view. COMPARISON: MR cervical spin wo con* [id number] 04/16/2022 10:55 AM FINDINGS: Lungs: Lung volumes are decreased which may be chronic and secondary to body habitus. No infiltrates or overt CHF. Pleural spaces: Unremarkable. No pleural effusion. No pneumothorax. Heart/Mediastinum: Cardiac silhouette appears mildly enlarged on this portable chest exam. Bones/joints: Unremarkable for age. XR/XR chest 1V portable [id number] IMPRESSION: Mild cardiomegaly with decreased lung volumes otherwise negative chest.
[2022-04-16 12:23] LABS: ABG PH Result 7.44 (7.35-7.45); Alveolar-Arterial Oxygen Gradi 4.5 mmHg (5-10); Arterial Blood Gas Hematocrit 51.6 % (42-52); Base Excess ABG -1.6 mmol/L (-2.0-2.0); Blood Gas Operator Identificat AMH; Blood Gas Sample Site Brachial, left; Blood Gas Sample Type Arterial; Carboxyhemoglobin 1.1 %THgb (0.4-20.1); HCO3 ABG 21.2 mmol/L (22-26); HGB O2 Sat 94.5 % (95-100); Ionized Calcium Level - ABG 1.2 mmol/L (1.1-1.4); Methemoglobin 0.8 % (0.4-1.5); Oxygen Device ROOM AIR; Oxygen Saturation ABG 96.3; PO2 ABG 74.6 mmHg (80.0-100.0); Potassium Level - ABG 3.9 mmol/L (3.5-5.0); Total Hemoglobin 16.8 g/dL (14-18)
--- NOTE | 2022-04-16 12:40 | PM.PN ---
Subjective Subjective: Patient was examined multiple times throughout the morning - initially in the morning he was examined, he tells me about 2 weeks ago he had COVID-19, with sinus symptoms, upper respiratory tract symptoms and he got better, no neurologic symptoms reported -No history of weakness, no history of paresthesias, -No history of back surgeries, no history of trauma -No history of tick bite -No history of animal bite, animal exposure -No new rashes -No chest pain, palpitations -No headache, blurry vision, no nausea, no vomiting -He tells me that he drove to [place] to see his daughter -Now since getting here to [place] he developed numbness and trouble coordinating of his hands and his feet -He tells me that there is no other symptoms extending to be on the ankles, or extending beyond his hand -No history of food poisoning, no diarrhea, no abdominal pain -He does report that he has trouble urinating and they had to place a Delgado catheter, no urinary or bowel incontinence, no saddle or perianal anesthesia -Rhythm when he was examined, he had lack of sensation the palmar and dorsal aspect of his feet, dorsal and palmar aspect of both hands, however no loss of strength, and no changes to sensation extending beyond the hand or beyond the feet, -He had good strength of his calves, of his quadriceps, no losses of sensation, -He had good strength and sensation of his arms, of his shoulders -He did have trouble coordinating of his habits such as picking up a glass of water, abnormal [id number] bilaterally, abnormal [id number] bilaterally -I also did reflexes he had absent ankle reflex on the right but it is difficult to examine him as he was so anxious, decreased ankle reflex on the left, he had bilateral elbow reflexes present, bilateral thumb reflex upper extremity -It was hard for me to do knee reflex due to patient tolerance and anxiety both of them were diminished -Patient had MRI, head, cervical spine, which have come back negative -I was paged by nursing staff patient is complaining of shortness of breath and difficulty breathing, currently is on room air, saturating in the mid 90s -No evidence of respiratory distress, no nasal flaring, intercostal retractions, no nasal flaring, equal breath sounds bilaterally, on examination I cannot discern any diaphragmatic paralysis or unequal movement -Family is at bedside, is at bedside, I have discussed the case in detail with him, they are a bit upset as after his MRI patient fell off the MRI table and hit his head, I apologize -He denies any headache, blurry vision, no nausea, no vomiting, no pain currently can follow commands, alert oriented x3, is hypertensive -He does report as I was about to leave the room that his sensation is his feet is returning, he can feel my fingers he can feel dull sensations, can feel sharp sensations Vitals/I&O/Wt Last Vital Signs Temp 97.5 F L 04/16/22 11:44 Pulse 104 H 04/16/22 12:03 Resp 20 H 04/16/22 11:44 BP 170/108 04/16/22 11:44 Pulse Ox 94 04/16/22 12:03 O2 Del Method 04/16/22 12:03 04/15/22 04/16/22 04/16/22 22:59 06:59 14:59 Intake Total 1100 / 1100 0 / 0 Output Total 620 / 620 Balance 480 / 480 0 / 0 Weight last 48 hrs Weight 86.183 kg Physical Exam Const: COMMON NORMALS: no acute distress and patient oriented x3 Resp: COMMON NORMALS: normal respiratory effort, No retractions, No use of accessory muscles and clear to auscultation bilaterally AUSCULTATION: clear to auscultation bilaterally Cardio: COMMON NORMALS: regular rate, regular rhythm, S1 normal heart sound present and S2 normal heart sound present RATE: regular rate RHYTHM: regular rhythm HEART SOUNDS: S1 normal heart sound present and S2 normal heart sound present GI: COMMON NORMALS: Normal to inspection, nondistended, normoactive bowel sounds present and non-tender Extremity: COMMON NORMALS: no pedal edema Neuro: COMMON NORMALS: patient oriented x3, CN's II-XII intact bilaterally, moves all extremities and no focal motor deficits OTHER: Neurologic testing as above Psych: COMMON NORMALS: mental status grossly normal Data 04/16/22 04:58 04/16/22 04:58 Micro: Microbiology 04/15/22 23:30 Gram Stain - Final Cerebrospinal Fluid 04/15/22 21:25 Blood Culture - Preliminary Blood SPECIMEN COLLECTED 04/15/22 21:27 Blood Culture - Preliminary Blood SPECIMEN COLLECTED A&P Assessment and plan (1) Dizziness: (2) Paresthesia of both hands: (3) Paresthesia of both feet: (4) Ataxia: Plan Proximal muscle weakness with numbness and tingling Recent sinus infection CT head CTA head and neck unremarkable CSF is showing protein 70, normal white blood cell count Gram stain and culture so far unremarkable Head MRI no acute findings Neck MRI no acute findings Has received 1 dose of Decadron Has anxiety has received Xanax, Ativan for MRI We will consider IVIG based on discussion with Dr. Lares Start doxycycline Prophylaxis Lovenox Cardiac diet Patient is showing autonomic dysfunction with hypotension No signs of cauda equina Romberg sign negative Check tick panel, Lyme panel, ganglioside antibodies Fall precautions Continue pulse ox Monitor respiratory status closely Monitor neurologic symptoms, monitor reflexes PT evaluation in the morning Full code Patient is from [facility] Medical Necessity Statement*: Patient requires hospitalization for concern for bradycardia syndrome Coding Level of Care Code Acute Bagman/Woman for Brodyg Ursula Diagnoses Dizziness R42 Paresthesia of both hands R20.2 Paresthesia of both feet R20.2 Ataxia R27.0
--- NOTE | 2022-04-16 13:09 | PM.CONSULT ---
Providers/Reason For Consult Consulting Physician/Specialty*: Dr. Patterson Reason for Consult*: Acute ataxia Requesting Physician: Dr. Lin Attending Physician: Niall Patterson MD History of Present Illness History of Present Illness Aman Daily is a 61 year old male who came to our emergency department 04/14/2022 complaining of dizziness. He told Dr. Lin that he was having sensory loss in his distal extremities that started after an upper respiratory infection 4 weeks ago. He had been treated with antibiotics. Dr. Lin evaluated him and his final information is pending. The patient returned last night and Dr. Lin called me quite late in the evening and reviewed the story. The patient was continuing to complain of dizziness to the point that he was having trouble walking. Again he was complaining of numbness in his feet and his hands. The intensity was increasing over the 24 hours since he been here before. His deep tendon reflexes were reduced but present. Dr. Lin performed a lumbar puncture and this morning his protein came back at 70 which is slightly elevated and the fluid was acellular. (2 WBCs). Laboratory studies otherwise included a markedly depressed vitamin B12 of 150. TSH 1.68. Phosphorus was low at 2.1. His white count was slightly elevated at 10.5 but came down to normal today and his ESR was not elevated at 16. CT angiogram day before yesterday showed no extracranial or intracranial arterial stenosis or occlusion. MRI brain was normal. MRI cervical spine was normal. MNIF obtained a short time ago was 20 (normal 100). When he was examined by Dr. Abdul this morning he had normal strength and trace reflexes at the ankles and knees. Review of Systems Narrative: He has a headache. He took a fall earlier in MRI when he slipped off the table Const: Reports: body aches, fatigue and malaise; Denies: fever(s), chills or change in weight Eyes: Denies: change in vision or blurry vision ENMT: Denies: throat pain Card: Denies: chest pain, palpitations, irregular heart rhythm or lightheadedness Resp: Reports: dyspnea; Denies: productive cough GI: Reports: other (He used to be on B12 replacements but his doctor moved away); Denies: abdominal pain, nausea or vomiting : Reports: difficulty urinating Musc: Reports: back pain and muscle weakness Skin/Breast: Denies: rash Psych: Reports: anxiety Clive/Lymph: Denies: easy bruising All/Imm: Denies: urticaria Medications/Allergies Home Medications Medication Instructions Recorded Confirmed Last Taken Type meclizine 25 mg tablet 25 mg PO TID PRN dizziness #20 tabs 04/14/22 04/16/22 Unknown Rx ondansetron 4 mg disintegrating 4 mg PO Q8H PRN nausea and 04/14/22 04/16/22 Unknown Rx tablet vomiting #15 tabs acetaminophen 325 mg tablet 650 mg PO QID PRN Pain 04/16/22 04/16/22 Unknown History (Tylenol) allopurinol 300 mg tablet 300 mg PO DAILY 04/16/22 04/16/22 1 Day Ago History ~04/15/22 Allergies Allergy/AdvReac Type Severity Reaction Status Date / Time No Known Allergies Allergy Verified 04/14/22 19:07 Current Medications Generic Name Dose Route Start Last Admin Trade Name Freq PRN Reason Stop Dose Admin Acetaminophen 500 mg 04/16/22 02:09 04/16/22 02:17 Acetaminophen 500 Mg Tablet PO 500 mg Q4H PRN Administration fever Enoxaparin Sodium 40 mg 04/16/22 02:30 04/16/22 02:17 Enoxaparin 40 Mg/0.4 Ml Syringe SUBCUT 40 mg Q24H BHANU Administration Hydralazine HCl 10 mg 04/16/22 02:19 04/16/22 02:45 Hydralazine 20 Mg/Ml Inj 1 Ml IVP 10 mg Q4H PRN Administration Blood pressure >180/100 Temazepam 15 mg 04/16/22 02:47 04/16/22 03:10 Temazepam 15 Mg Capsule PO 15 mg BEDTIME PRN Administration INSOMNIA PFSH Acute PFSH: Medical History HTN (hypertension) Surgical History History of dental surgery Family History Other Diabetes Social History Smoking and tobacco status: never smoked Alcohol intake: never Substance/Drug Use: never Household members: spouse Housing: House Vitals/I&O/Wt Last Vital Signs Temp 97.5 F L 04/16/22 11:44 Pulse 104 H 04/16/22 12:03 Resp 20 H 04/16/22 11:44 BP 170/108 04/16/22 11:44 Pulse Ox 94 04/16/22 12:03 O2 Del Method 04/16/22 12:03 04/15/22 04/16/22 04/16/22 22:59 06:59 14:59 Intake Total 1100 / 1100 0 / 0 Output Total 620 / 620 Balance 480 / 480 0 / 0 Weight last 48 hrs Weight 190 lb Physical Exam Narrative: GENERAL: The patient was well-nourished. He was sitting in a hospital bed and could speak in half sentences due to shortness of breath. MENTAL STATUS: Orientation was full to 10 of 10 questions of orientation. Speech was fluent without word hesitation. No difficulty following a complex command. The affect was appropriately anxious. CRANIAL NERVES: Visual davis full. Eye movements full. Facial movements symmetric. MOTOR: Marked proximal weakness in the upper and lower extremities. Full strength distally. He could not fully elevate the arms against gravity (weakness of deltoids) and biceps and triceps slightly weakened while intrinsic muscles of the hands were strong. In the lower extremities he could not lift either leg against gravity. No distal weakness at all. SENSATION: Pin reduced distally in the hands extending to the wrists. Vibratory sensation markedly reduced at the feet and proprioception absent in the toes. COORDINATION: At this time he had [id number]-[id number] ataxia that was proportional to weakness and that same was true in the upper extremities. DEEP TENDON REFLEXES: He has lost reflexes in both ankles and the left knee. He still has a trace right knee jerk and upper extremity brachial radialis and biceps jerks intact. GAIT: He is unable to stand up. HEENT: Normocephalic without dysmorphic features. Conjunctivae were not injected and sclerae were nonicteric. He has a pale complexion. NECK: Carotid upstroke was strong bilaterally without bruits. The thyroid was not enlarged and there were no palpable lymph nodes. CHEST: Clear to auscultation. CARDIOVASCULAR: The heart sounds were normal without murmur or gallop. Regular rate and rhythm. EXTREMITIES: There was no edema or cyanosis. The skin was unremarkable. The spine exhibited normal thoracic kyphosis and normal lumbar lordosis without deformities. Data 04/16/22 04:58 04/16/22 04:58 Micro: Microbiology 04/15/22 23:30 Gram Stain - Final Cerebrospinal Fluid 04/15/22 21:25 Blood Culture - Preliminary Blood SPECIMEN COLLECTED 04/15/22 21:27 Blood Culture - Preliminary Blood SPECIMEN COLLECTED A&P Assessment and plan (1) AIDP (acute inflammatory demyelinating polyneuropathy): This gentleman presented with somewhat vague symptoms of distal paresthesias and a feeling that he was dizzy. He was not weak and had no objective findings except that his reflexes were perhaps diminished according to Dr. Lin. For concern of Guillain-Covarrubias? he was given a spinal tap in the ER looking for high protein and admitted to watch for worsening weakness. Indeed through the course of today he has lost the reflexes in his legs and become profoundly weak in upper and lower extremities. In fact his MNIF is markedly reduced and he may need to be intubated before the day is out. I have been communicating with Dr. Patterson since this morning and reviewed the patient's MRI scans earlier. IVIG 1 g/kg over 5 days has been ordered and is in the process. The patient should probably be moved to ICU and I warned the patient and his and daughter that he could require intubation. I reviewed up-to-date recommendations for treatment of AIDP. The current author recommends IVIG as the preferred treatment and most centers because the efficacy is similar to plasmapheresis and IVIG is more tolerated. Risk factors for poor outcome include Age over 60 Rapid progression of weakness Need for ventilatory support Preceding diarrheal illness. Disease is axonal Guillian Shelby). His Erasmus score is 17% risk of developing respiratory failure in the first week of admission. Nevertheless, the rapid progression of his weakness over the course of today and low M NIF led me to warn the patient that he may require intubation. I took time to address the patient and family concerns and Dr. Patterson and I discussed his care. He has a profoundly low B12 level of 150 and will receive subcu or IM B12 every day for 3 days and then once a week for 4 weeks and then he should stay on parenteral B12 probably for the rest of his life since he was proven to be deficient in the past. It would not be a bad idea to supplement other vitamins as well at this time. Coding Level of Care Code Acute Accounting Bookkeeper for Chg Fwd Diagnoses AIDP (acute inflammatory demyelinating polyneuropathy) G61.0
[2022-04-16] MEDS: doxycycline 100 MG in sodium chloride 0.9% (plus) 100 ML IV ×2 (13:22→23:50)
[2022-04-16] MEDS: cloNIDine 0.1 mg Tablet PO (13:23)
--- NOTE | 2022-04-16 14:00 | PC.NURSE ---
Bedside report given to ALAN Borden. IVIG handed off at bedside. Family in waiting room and notified.
--- NOTE | 2022-04-16 14:01 | PC.NURSE ---
patient arrived from [facility] via bed, AO x4, follows commands, able to feel all stimuli and move all extremities, no defecits noted, Dr. Patterson at bedside gave V.O. to start IvIG at 25 ml/hr, only c/o from patient is mild SOB, o2 WNL RA
--- NOTE | 2022-04-16 14:04 | ECG_ITS ---
[facility] Test Date: 2022-04-16 Pat Name: Aman Daily Department: Room: [facility]04 Gender: Male Lead Nurse: : 1960 Requested By: Niall Patterson Order Number: [id number] Zahraa MD: Tal Palacios M.D. Measurements Intervals [place] Rate: 104 P: 36 RI: 149 QRS: 20 QRSD: 86 T: 43 QT: 355 QTc: 467 Interpretive Statements SINUS TACHYCARDIA POSSIBLE INFERIOR MYOCARDIAL INFARCTION , PROBABLY OLD [30 ms Q WAVE IN II/aVF] ABNORMAL RHYTHM ECG No previous ECG available for comparison Electronically Signed On 04-17-2022 13:48:55 CORK INSULATOR by Tal Palacios M.D. [id number]
[2022-04-16] MEDS: cyanocobalamin 1,000 mcg/mL SDV 1000 MCG IM (14:17)
[2022-04-16] MEDS: folic acid 1 MG, multivitamin inj 10 ML, thiamine 100 MG in sodium chloride 0.9% 1,000 ML 252.8 MG IV (14:38)
--- NOTE | 2022-04-16 14:47 | PC.OT ---
UPON OT ARRIVAL, PT. HAD BEEN MOVED FROM MEDSUR TO ICU. NURSE ADMITTING AT TIME OF OT EVAL ATTEMPT SECONDARY TO MEDICAL DECLINE. WILL CONTINUE TO FOLLOW AND ATTEMPT MEDICALLY APPROPRIATE.
[2022-04-16 15:24] LABS: Erythrocyte Sedimentation Rate 18 mm/hr (0-10)
[2022-04-16 15:50] LABS: Troponin(5th) Baseline 8 ng/L (0-15)
[2022-04-16 16:05] LABS: Folate Level 8.2 ng/mL (4.5-32.2)
--- NOTE | 2022-04-16 16:05 | PC.NURSE ---
Patient C/O of needing to void but is unable, and being restless. bladder scan showed >1000, Dr. Patterson gave order to insert folyh and start precedex Foly inserted, immediate return of 1200 ml urine
[2022-04-16 16:11] LABS: HIV 1 & 2 Antibody Non-Reactive (Non-Reactiv); HIV 1 & 2 Antigen Non-Reactive (Non-Reactiv)
[2022-04-16] MEDS: dexmedetomidine 400 MCG in sodium chloride 0.9% (100 ml) 100 ML IV (16:53)
[2022-04-16 17:15] LABS: Troponin 5 2HR 8.03 ng/L (0-15)
[2022-04-16 17:43] LABS: Troponin 5 2HR Delta 0.03 ABS# (0-10)
--- NOTE | 2022-04-16 17:48 | PC.NURSE ---
Dr. Patterson came to bedside, gave v.o. for Klonopin
--- NOTE | 2022-04-16 18:23 | PC.RESP ---
nif greater than -60
--- NOTE | 2022-04-16 20:09 | CTR_ITS ---
PROCEDURE INFORMATION: Exam: CT Head Without Contrast Exam date and time: 04/16/2022 8:21 PM Age: 61 years old Clinical indication: Injury or trauma; Fall; Blunt trauma (contusions or hematomas); Patient HX: Patient fell earlier today transferring from mri couch to wheelchair. Hematoma to RT parietal/occipital. TECHNIQUE: Imaging protocol: Computed tomography of the head without contrast. Radiation optimization: All CT scans at this facility use at least one of these dose optimization techniques: automated exposure control; mA and/or kV adjustment per patient size (includes targeted exams where dose is matched to clinical indication); or iterative reconstruction. COMPARISON: MR head wo con* [id number] 04/16/2022 10:30 AM RADIATION DOSE METRICS: Total DLP (mGy-cm): 1140.48 FINDINGS: Brain: Unremarkable. No hemorrhage. No significant white matter disease. No edema. Cerebral ventricles: No ventriculomegaly. Paranasal sinuses: Visualized sinuses are unremarkable. No air fluid levels. Mastoid air cells: Unremarkable as visualized. No mastoid effusion. Bones/joints: Unremarkable. No acute fracture. Soft tissues: Unremarkable. CT/CT head wo con* [id number] IMPRESSION: No acute intracranial abnormality demonstrated.
[2022-04-16] MEDS: labetalol 5 mg/mL SDV 20mL 10 MG IVP (20:48)
[2022-04-16] MEDS: morphine 4 mg/mL SDV 1 mL 2 MG IVP (21:39)
[2022-04-16] MEDS: saline nasal spray 44mL Btl 1 SPRAY NASAL (21:40)
--- NOTE | 2022-04-16 22:11 | PC.NURSE ---
during 1999 nursing assessment this RN was educating patient and family about reason for setting bed alarm for patient safety and to decrease risk of patient falls. Patient states, that he fell this morning in MRI, while moving from MRI table to wheelchair after head MRI. Given this information at 2010 MD Santo notified and head CT was ordered.
[2022-04-16 22:43] LABS: Troponin 5 6HR 9.34 ng/L (0-15)
[2022-04-16 23:30] LABS: Troponin 5 6HR Delta 1.34 ng/L (0-12)
[2022-04-17] VITALS (60 sets, daily range): BP systolic 69–260; BP diastolic 50–128; PULSE 50–100; RESP 15–39; TEMP 36.6; O2SAT 88–99
[2022-04-17] MEDS: enoxaparin 40 mg/0.4 mL Syringe SUBCUT (01:59)
[2022-04-17] MEDS: CLONazepam 0.5 mg Tablet 0.25 MG PO (02:01)
[2022-04-17 03:03] LABS: Basophils % 0.2 %; Eosinophils # 0.1 10^3/uL (0.0-0.8); Eosinophils % 1.1 %; Hematocrit 43.8 % (42.0-52.0); Lymphocytes # 2.1 10^3/uL (0.8-4.8); Lymphocytes % 17.7 %; Mean Corpuscular HGB Conc 34.2 g/dL (30.0-36.0); Mean Corpuscular Hemoglobin 30.9 pg (28.0-34.0); Mean Corpuscular Volume 90.1 fl (80-94); Mean Platelet Volume 9.2 fL (7.4-10.4); Monocytes # 1.2 10^3/uL (0.2-0.9); Monocytes % 9.9 %; Neutrophils # 8.51 10^3/uL (1.8-7.7); Neutrophils % 70.6 %; Nucleated Red Blood Cells % 0 %; Platelet Count 279 10^3/cmm (130-400); Red Blood Count 4.86 10^6/uL (4.1-5.3); Red Cell Distribution Width 12.1 % (12.1-15.1); White Blood Count 12.1 10^3/uL (4.0-10.0)
[2022-04-17] MEDS: morphine 4 mg/mL SDV 1 mL 2 MG IVP (03:15)
[2022-04-17] MEDS: lidocaine 5% Patch 1 PATCH TOPICAL ×2 (03:15→08:10)
[2022-04-17 03:32] LABS: Anion Gap 14.6 (5-19); Blood Urea Nitrogen 11 mg/dL (8-23); Calcium 9.1 mg/dL (8.5-10.5); Carbon Dioxide 21 mmol/L (22-29); Chloride 94 mmol/L (98-107); Glomerular Filtration Rate 114.3 mL/min (90-130); Glucose 122 mg/dL (65-115); Osmolality Calculated 263 mOsm/kg (285-295); Potassium 3.6 mmol/L (3.5-5.1); Sodium 126 mmol/L (136-145)
[2022-04-17] MEDS: acetaminophen 500 mg Tablet PO (06:10)
[2022-04-17] MEDS: cloNIDine 0.1 mg Tablet PO ×2 (07:56→19:41)
[2022-04-17] MEDS: sodium chloride 1 gm Tablet PO ×2 (07:56→19:41)
[2022-04-17] MEDS: cyanocobalamin 1,000 mcg/mL SDV 1000 MCG IM (08:09)
--- NOTE | 2022-04-17 09:18 | PC.RESP ---
nif greater than -60
--- NOTE | 2022-04-17 10:32 | PC.CHAP ---
Pastoral Care Encounter/Spiritual Assessment Type of Contact [] Declined floor covering layer visit [] Patient/Family/Request visit [] Outpatient visit [] Follow-up visit [] Physician referral [] Code/Alert [x] Routine visit [] Staff referral [] Actively dying [] Patient sleeping [x] Family support [] [] Out of room [] Palliative care [] [] Receiving care in room [] Pre-surgical visit [] Trauma [] Long length of stay [x] ICU visit [] Other: Relational/Emotional Strength [] Patient feels connected with others/family/visitors/staff [] Distress [] Loneliness/isolation [] Abandonment Spirituality of Patient [] Person of Mira [] Attends Sikhism of their Mira [] Believes in Prayer [] Reads Bible or Pentecostal materials [] There are Spiritual issues to be addressed We[employer]her [employer]her Interventions [x] Prayer [] Active listening [] Non-anxious presence [] Spiritual/emotional support [] Crisis/trauma care [] Spiritual counseling [] Bereavement support [] Provided bereavement packet [] Provided Bible/devotional materials [] Provided toy/stuffed animal, coloring book to patient or family member [] Provided Communion [] Anointing/[place] [] Salvation [x] Completed spiritual assessment [] Other: Impact on Illness or Injury [] Angry [] Fearful [] Anxious [] Often cries [] Exhaustion [] Unable to work [] Unable to attend confucianism [] Unable to walk/stand [] Unable to read [] Unable to drive [] Unable to eat/drink [] Unable to sleep [] Unable to be with family [] Patient intubated [] Other: Summary Time spent with patient
--- NOTE | 2022-04-17 10:50 | PM.PN ---
Subjective Subjective: Patient was seen this morning at bedside, he is alert oriented x3, working with physical therapy, he continues to have weakness in bilateral lower extremities, weakness in the arms but he feels that they are better continues to have trouble coordinating, no trouble breathing, his nifwas 60, remains hypertensive, received IVIG, no adverse reactions reported Vitals/I&O/Wt Last Vital Signs Temp 97.9 F 04/17/22 00:00 Pulse 78 04/17/22 08:30 Resp 16 04/17/22 08:08 BP 174/108 04/17/22 08:30 Pulse Ox 95 04/17/22 08:08 O2 Del Method 04/17/22 08:08 04/16/22 04/17/22 04/17/22 22:59 06:59 14:59 Intake Total 2077.851 / 2077.851 970 / 3047.851 350 / 350 Output Total 2150 / 2150 700 / 2850 Balance -72.149 / -72.149 270 / 197.851 350 / 350 Weight last 48 hrs Weight 86.183 kg Physical Exam Const: COMMON NORMALS: no acute distress and patient oriented x3 Resp: COMMON NORMALS: normal respiratory effort, No retractions, No use of accessory muscles and clear to auscultation bilaterally AUSCULTATION: clear to auscultation bilaterally Cardio: COMMON NORMALS: regular rate, regular rhythm, S1 normal heart sound present and S2 normal heart sound present RATE: regular rate RHYTHM: regular rhythm HEART SOUNDS: S1 normal heart sound present and S2 normal heart sound present GI: COMMON NORMALS: Normal to inspection, nondistended, normoactive bowel sounds present and non-tender Extremity: COMMON NORMALS: no pedal edema Neuro: COMMON NORMALS: patient oriented x3, CN's II-XII intact bilaterally and moves all extremities OTHER: Bilateral lower extremity strength 3 out of 5 Bilateral upper extremity strength 3 out of 5 Bilateral lower extremities, sensation significantly diminished to pinprick, dull sensation Reflexes bilateral extremities lateral of the ankles, knees absent Bilateral elbow, thumb reflexes absent Psych: COMMON NORMALS: mental status grossly normal Urinary Catheter Management: Delgado: Cath Placed During This Visit: yes Reason for Continuing Indwelling Catheter: Acute Urinary Retention or Obstruction Urinary Catheter Date of Insertion: 04/16/22 Urinary Catheter Time of Insertion: 16:00 Data 04/17/22 02:22 04/17/22 02:22 Micro: Microbiology 04/15/22 21:27 Blood Culture - Preliminary Blood NEGATIVE TO DATE 04/15/22 21:25 Blood Culture - Preliminary Blood NEGATIVE TO DATE 04/15/22 23:30 Gram Stain - Final Cerebrospinal Fluid A&P Assessment and plan (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, AIDP Currently in the ICU due to rapid deterioration, concerns for respiratory compromise nif yesterday morning was 20, now up to 60 Proximal muscle weakness with numbness and tingling Recent sinus infection CT head CTA head and neck unremarkable CSF is showing protein 70, normal white blood cell count Gram stain and culture so far unremarkable Head MRI no acute findings Neck MRI no acute findings Has received 1 dose of Decadron Has anxiety has received Xanax, Ativan for MRI Started on IVIG B12 deficiency B12 replacement, thiamine, multivitamin Continue doxycycline Prophylaxis Lovenox Speech therapy eval PT OT Patient is showing autonomic dysfunction with hypertension Monitor reflexes, monitor respiratory status Romberg sign negative Check tick panel, Lyme panel, ganglioside antibodies Fall precautions Continue pulse ox Monitor respiratory status closely Monitor neurologic symptoms, monitor reflexes PT evaluation in the morning Hypertensive urgency might be from autonomic dysfunction from AIDP, continue clonidine 0.1 twice daily we will add hydralazine Hyponatremia likely secondary to IVIG and or Precedex, salt tablets, neurochecks, recheck serum sodium at 1 PM Anxiety, placed on clonazepam, as needed, clonidine, Precedex Full code Patient is from [facility] Medical Necessity Statement*: Patient requires hospitalization, for 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
[2022-04-17] MEDS: doxycycline 100 MG in sodium chloride 0.9% (plus) 100 ML IV (12:40)
[2022-04-17] MEDS: hyDRALAzine 10 mg Tablet PO ×3 (12:41→20:05)
[2022-04-17] MEDS: dexmedetomidine 400 MCG in sodium chloride 0.9% (100 ml) 100 ML 15.69 MCG IV (12:47)
[2022-04-17 13:31] LABS: Sodium 123 mmol/L (136-145)
[2022-04-17 15:05] LABS: Potassium, Radom Urine 65 mmol/L; Urine Creatinine 103 mg/dL (39-259); Urine Random Chloride 126 mmol/L; Urine Random Sodium 129 mmol/L
[2022-04-17 15:19] LABS: Lyme AB Screen <0.90 index; Lymes IGG WB <0.90 index
[2022-04-17] MEDS: sodium chloride 0.9% 1,000 ML 100 ML IV (15:19)
[2022-04-17] MEDS: ALPRAZolam 0.5 mg Tablet PO (15:19)
[2022-04-17 15:45] LABS: ABG PCO2 33.9 mmHg (35-45); Alveolar-Arterial Oxygen Gradi 21.9 mmHg (5-10); Arterial Blood Gas Hematocrit 49.4 % (42-52); Blood Gas Allen Test Pos; Blood Gas Operator Identificat GD; Blood Gas Sample Site Radial, right; Blood Gas Sample Type Arterial; Carboxyhemoglobin 1.3 %THgb (0.4-20.1); HGB O2 Sat 93.4 % (95-100); Ionized Calcium Level - ABG 1.2 mmol/L (1.1-1.4); Methemoglobin 0.9 % (0.4-1.5); Oxygen Device NC; Oxygen Saturation ABG 95.4; PO2 ABG 72.4 mmHg (80.0-100.0); Potassium Level - ABG 3.9 mmol/L (3.5-5.0); Total Hemoglobin 16.1 g/dL (14-18)
[2022-04-17] MEDS: LORazepam 2 mg/mL INJ 1 mL 0.5 MG IVP (15:58)
[2022-04-17] MEDS: morphine 4 mg/mL SDV 1 mL 1 MG IVP (17:01)
[2022-04-17 17:12] LABS: Sodium 118 mmol/L (136-145)
--- NOTE | 2022-04-17 19:20 | PM.CONSULT ---
Providers/Reason For Consult Consulting Physician/Specialty*: kommana/nephrology Reason for Consult*: hyponatremia Attending Physician: Niall Patterson MD History of Present Illness History of Present Illness A patient is a 61-year-old male with past medical history of hypertension presented to the emergency department complaining of dizziness and unable to walk. Complained of generalized weakness. Patient was received antibiotics for recently for dental procedure as well as a sinus infection. In the emergency department CT head and neck was unremarkable. Patient continued to have tingling numbness in his feet and back to the ER. Also complained of having bowel and bladder incontinence. Lumbar puncture was done and CSF has showed high protein. Dermisplus consistent with 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. He was admitted to ICU was started on IVIG infusion. Status post 1 dose of Decadron. His sodium levels were normal on presentation but gotten worse today to 123 and repeat 1 was 118. Review of Systems Narrative: negative Medications/Allergies Home Medications Medication Instructions Recorded Confirmed Last Taken Type meclizine 25 mg tablet 25 mg PO TID PRN dizziness #20 tabs 04/14/22 04/16/22 Unknown Rx ondansetron 4 mg disintegrating 4 mg PO Q8H PRN nausea and 04/14/22 04/16/22 Unknown Rx tablet vomiting #15 tabs acetaminophen 325 mg tablet 650 mg PO QID PRN Pain 04/16/22 04/16/22 Unknown History (Tylenol) allopurinol 300 mg tablet 300 mg PO DAILY 04/16/22 04/16/22 1 Day Ago History ~04/15/22 Allergies Allergy/AdvReac Type Severity Reaction Status Date / Time No Known Allergies Allergy Verified 04/14/22 19:07 Current Medications Generic Name Dose Route Start Last Admin Trade Name Freq PRN Reason Stop Dose Admin Acetaminophen 500 mg 04/16/22 02:09 04/17/22 06:10 Acetaminophen 500 Mg Tablet PO 500 mg Q4H PRN Administration fever Clonidine HCl 0.1 mg 04/17/22 07:30 04/17/22 07:56 Clonidine 0.1 Mg Tablet PO 0.1 mg Q12H BHANU Administration Cyanocobalamin 1,000 mcg 04/16/22 13:15 04/17/22 08:09 Cyanocobalamin 1,000 Mcg/Ml Sdv IM 1,000 mcg DAILY BHANU Administration Enoxaparin Sodium 40 mg 04/16/22 02:30 04/17/22 01:59 Enoxaparin 40 Mg/0.4 Ml Syringe SUBCUT 40 mg Q24H BHANU Administration Hydralazine HCl 10 mg 04/16/22 02:19 04/16/22 02:45 Hydralazine 20 Mg/Ml Inj 1 Ml IVP 10 mg Q4H PRN Administration Blood pressure >180/100 Hydralazine HCl 10 mg 04/17/22 13:00 04/17/22 17:00 Hydralazine 10 Mg Tablet PO 10 mg QID BHANU Administration Doxycycline Hyclate 100 mg/ 100 mls @ 100 mls/hr 04/16/22 12:45 04/17/22 13:45 Sodium Chloride IV Infused Q12H BHANU Infusion Protocol Lidocaine 1 patch 04/17/22 02:40 04/17/22 08:10 Lidocaine 5% Patch TOPICAL 1 patch [id number] BHANU Administration Lorazepam 0.5 mg 04/17/22 15:39 04/17/22 15:58 Lorazepam 2 Mg/Ml Inj 1 Ml IVP 0.5 mg Q4H PRN Administration ANXIETY Morphine Sulfate 1 mg 04/17/22 16:37 04/17/22 17:01 Morphine 4 Mg/Ml Sdv 1 Ml IVP 1 mg Q4H PRN Administration SEVERE PAIN Sodium Chloride 1 spray 04/16/22 20:46 04/16/22 21:40 Saline Nasal [place] 44ml Btl NASAL 1 spray PRN PRN Administration DRYNESS Sodium Chloride 1 gm 04/17/22 07:30 04/17/22 07:56 Sodium Chloride 1 Gm Tablet PO 1 gm Q12H BHANU Administration Temazepam 15 mg 04/16/22 02:47 04/16/22 22:58 Temazepam 15 Mg Capsule PO 15 mg BEDTIME PRN Administration INSOMNIA Thiamine HCl 100 mg 04/16/22 14:18 04/17/22 08:09 Thiamine 100 Mg/Ml Sdv IM 100 mg DAILY BHANU Administration PFSH Acute PFSH: Medical History HTN (hypertension) Surgical History History of dental surgery Family History Other Diabetes Social History Smoking and tobacco status: never smoked Alcohol intake: never Substance/Drug Use: never Household members: spouse Housing: House Vitals/I&O/Wt Last Vital Signs Temp 97.9 F 04/17/22 00:00 Pulse 53 L 04/17/22 12:30 Resp 27 H 04/17/22 09:30 BP 132/81 04/17/22 12:30 Pulse Ox 91 04/17/22 12:30 O2 Del Method 04/17/22 08:08 04/17/22 04/17/22 04/17/22 06:59 14:59 22:59 Intake Total 970 / 3047.851 525.347 / 525.347 Output Total 700 / 2850 Balance 270 / 197.851 525.347 / 525.347 Physical Exam Narrative: Patient is awake alert, no acute distress Neck supple No edema Urinary Catheter Management: Delgado: Cath Placed During This Visit: yes Reason for Continuing Indwelling Catheter: Acute Urinary Retention or Obstruction Urinary Catheter Date of Insertion: 04/16/22 Urinary Catheter Time of Insertion: 16:00 Data 04/17/22 02:22 04/17/22 16:00 Micro: Microbiology 04/15/22 23:30 Gram Stain - Final Cerebrospinal Fluid CSF Culture - Preliminary 04/15/22 21:27 Blood Culture - Preliminary Blood NEGATIVE TO DATE 04/15/22 21:25 Blood Culture - Preliminary Blood NEGATIVE TO DATE A&P Assessment and plan (1) Hyponatremia: Plan 1. Hyponatremia: Sodium was 135 worsened to 118 after IVIG started. IVIG can cause severe hyponatremia due to hyperproteinemia , can also cause for hyponatremia. -Started on 3% saline at 20 cc an hour continue sodium levels every 4 hours, urine sodium was 129. Urine osmolality pending -We will continue to monitor closely 2. GBS : On IVIG therapy 3. Metabolic acidosis: Mild, monitor Patient evaluated using audiovisual cart. Time spent 35 minutes Consult Attestations Medical Necessity Statement: needs hospitalization for IVIG therapy Coding Level of Care Code Acute Principal Systems Architect for [employer] [facility] Diagnoses Hyponatremia E87.1
--- NOTE | 2022-04-17 19:28 | PC.NURSE ---
1400 Care taken over from ALAN Muniz. IVIG infusion initiated per order. Patient assessed. Patient's at bedside. Sodium level reported to Dr. Patterson. 1500 New orders received per Dr. Patterson in response to low sodium level. Precedex drip stopped per order. [address] Roy to report patient's c/o increased shortness of breath and agitation. Orders to resume Precedex and give Xanax. Orders initiated. 1540 Dr. Patterson at bedside. Patient's labs, vital signs, neuro and respiratory status assessed. ABG drawn per Dr. Patterson's order. Ativan order received and administered per order. ABG results reviewed with Dr. Roy. 1600 At bedside, rounded with Dr. Latif. Patient assessed. Labs, medications, vital signs, and plan of care discussed with patient and family. 1630 Patient's at nurse's station multiple times to report patient's c/o of shortness of breath and chest pain. Patient was assessed each time. Dr. Patterson on unit and notified of patient's complaints. Orders for morphine received and administered. [address] Latif notified of sodium level. Patient resting comfortably. Awaiting new orders.
[2022-04-17] MEDS: sodium chloride 3% 500 ML 25 ML IV (19:34)
[2022-04-17] MEDS: diphenhydrAMINE 50 mg/mL SDV 1mL 25 MG IVP (19:42)
--- NOTE | 2022-04-17 20:02 | PC.NURSE ---
pt is restless and anxious, unable to lay still, RR 36, SpO2 dropped to 86%, pt placed on a 7L NC via oxy mask, O2 raised to 90%.
[2022-04-17] MEDS: hyDRALAzine 20 mg/mL INJ 1 mL 10 MG IVP (20:25)
[2022-04-17 20:34] LABS: ABG PCO2 56.2 mmHg (35-45); ABG PH Result 7.25 (7.35-7.45); Alveolar-Arterial Oxygen Gradi 2.6 mmHg (5-10); Arterial Blood Gas Hematocrit 52.3 % (42-52); Base Excess ABG -3.8 mmol/L (-2.0-2.0); Blood Gas Allen Test Pos; Blood Gas Operator Identificat JB; Blood Gas Sample Site Radial, right; Blood Gas Sample Type Arterial; Carboxyhemoglobin 1.1 %THgb (0.4-20.1); HCO3 ABG 24.6 mmol/L (22-26); HGB O2 Sat 86.1 % (95-100); Ionized Calcium Level - ABG 1.2 mmol/L (1.1-1.4); Methemoglobin 0.3 % (0.4-1.5); Oxygen Device NRB; Oxygen Saturation ABG 87.3; PO2 ABG 61.1 mmHg (80.0-100.0); Potassium Level - ABG 4.1 mmol/L (3.5-5.0); Total Hemoglobin 17.1 g/dL (14-18)
--- NOTE | 2022-04-17 20:37 | PC.NURSE ---
Called Dr. Medel @[phone] to request that he come see the pt. This RN is concerned about mentation changes and increasing oxygen requirements.
[2022-04-17 20:38] LABS: Sodium 120 mmol/L (136-145)
--- NOTE | 2022-04-17 20:49 | XRR_ITS ---
PROCEDURE INFORMATION: Exam: XR Chest Exam date and time: 04/17/2022 8:58 PM Age: 61 years old Clinical indication: Shortness of breath; Additional info: SOB TECHNIQUE: Imaging protocol: Radiologic exam of the chest. Views: 1 view. COMPARISON: CR XR chest 1V portable [id number] 04/16/2022 12:25 PM FINDINGS: Lungs: Right lower lobe and left mid lung field atelectasis versus infiltrate. Pleural spaces: Unremarkable. No pleural effusion. No pneumothorax. Heart/Mediastinum: Unremarkable. No cardiomegaly. Bones/joints: Unremarkable. XR/XR chest 1V portable [id number] IMPRESSION: Right lower lobe and left mid lung field atelectasis versus infiltrate.
--- NOTE | 2022-04-17 20:51 | PC.NURSE ---
BG taken because of mentation concerns. BG 171.
[2022-04-17 21:16] LABS: Glucose Point of Care 171 mg/dL (70-110)
--- NOTE | 2022-04-17 21:18 | PC.NURSE ---
Pt is on BIPAP. New orders to prepare for intubation for Dr. Medel.
[2022-04-17 21:42] LABS: D Dimer 0.65 ug/mIFEU (0-0.59)
--- NOTE | 2022-04-17 21:51 | PC.NURSE ---
Dr. Medel notified of decreasing BP. Current MAP of 62. New order for levophed.
[2022-04-17] MEDS: dexmedetomidine 400 MCG in sodium chloride 0.9% (100 ml) 100 ML 11.2 MCG IV (22:16)
--- NOTE | 2022-04-17 22:16 | PM.MISC ---
Miscellaneous Note Note: I was called to evaluate the patient at the bedside Nurse was concerned about shallow breaths I did agree with her patient was using abdominal muscles to breathe his knee was hypoxic on nonrebreather mask saturating 87% Requested ABG which showed respiratory acidosis with hypoxia Requested D-dimer and chest x-ray X-ray showing atelectasis Patient is very drowsy and weak Patient is verbally redirectable is at the bedside S1, S2, autonomic dysfunction with fluctuation of blood pressure Abdomen is soft No signs of edema Repeat sodium has improved from 118 to 120 IVIG running at the bedside I put patient on BiPAP request another ABG after half an hour His hypoxia is improved Still verbally redirectable Daughter and updated regarding possible intubation tonight X-ray showing infiltrate, he is afebrile
[2022-04-17 22:20] LABS: ABG PCO2 31.1 mmHg (35-45); ABG PH Result 7.44 (7.35-7.45); Alveolar-Arterial Oxygen Gradi 55.7 mmHg (5-10); Arterial Blood Gas Hematocrit 48.6 % (42-52); Blood Gas Allen Test Pos; Blood Gas Operator Identificat JB; Blood Gas Sample Site Radial, right; Blood Gas Sample Type Arterial; Carboxyhemoglobin 0.7 %THgb (0.4-20.1); HGB O2 Sat 99.2 % (95-100); Ionized Calcium Level - ABG 1.1 mmol/L (1.1-1.4); Methemoglobin 0.6 % (0.4-1.5); Oxygen Device VENT; Oxygen Saturation ABG > 100.0; Potassium Level - ABG 4.1 mmol/L (3.5-5.0); Total Hemoglobin 15.9 g/dL (14-18)
[2022-04-18] VITALS (43 sets, daily range): BP systolic 96–207; BP diastolic 62–147; PULSE 45–114; RESP 16–34; TEMP 36.3–36.8; O2SAT 91–100
[2022-04-18] MEDS: LORazepam 2 mg/mL INJ 1 mL 0.5 MG IVP ×2 (00:27→07:32)
[2022-04-18] MEDS: doxycycline 100 MG in sodium chloride 0.9% (plus) 100 ML IV ×3 (00:34→23:56)
[2022-04-18 01:00] LABS: Sodium 121 mmol/L (136-145)
[2022-04-18] MEDS: enoxaparin 40 mg/0.4 mL Syringe SUBCUT (01:57)
[2022-04-18] MEDS: morphine 4 mg/mL SDV 1 mL 1 MG IVP ×3 (01:58→20:02)
[2022-04-18 04:42] LABS: Basophils % 0.1 %; Eosinophils % 0.1 %; Hematocrit 41.2 % (42.0-52.0); Hemoglobin 14.8 g/dL (11.7-16.6); Lymphocytes # 1.5 10^3/uL (0.8-4.8); Lymphocytes % 11.4 %; Mean Corpuscular HGB Conc 35.9 g/dL (30.0-36.0); Mean Corpuscular Volume 86.4 fl (80-94); Mean Platelet Volume 9.1 fL (7.4-10.4); Monocytes # 1.3 10^3/uL (0.2-0.9); Neutrophils # 10.18 10^3/uL (1.8-7.7); Neutrophils % 78.1 %; Nucleated Red Blood Cells % 0 %; Platelet Count 281 10^3/cmm (130-400); Red Blood Count 4.77 10^6/uL (4.1-5.3); Red Cell Distribution Width 12.2 % (12.1-15.1)
[2022-04-18 05:00] LABS: Anion Gap 14.9 (5-19); Blood Urea Nitrogen 21 mg/dL (8-23); Calcium 8.8 mg/dL (8.5-10.5); Carbon Dioxide 23 mmol/L (22-29); Chloride 89 mmol/L (98-107); Glomerular Filtration Rate 75.7 mL/min (90-130); Glucose 121 mg/dL (65-115); Osmolality Calculated 260 mOsm/kg (285-295); Potassium 3.9 mmol/L (3.5-5.1); Sodium 123 mmol/L (136-145)
[2022-04-18] MEDS: diphenhydrAMINE 50 mg/mL SDV 1mL 25 MG IVP (05:03)
[2022-04-18] MEDS: ondansetron 2 mg/ML SDV 2 mL 4 MG IVP (07:41)
[2022-04-18] MEDS: dexmedetomidine 400 MCG in sodium chloride 0.9% (100 ml) 100 ML IV (07:55)
--- NOTE | 2022-04-18 07:57 | XRR_ITS ---
PROCEDURE INFORMATION: Exam: XR Chest Exam date and time: 04/18/2022 8:07 AM Age: 61 years old Clinical indication: Shortness of breath; Patient HX: F/u for continued SOB requiring oxygen TECHNIQUE: Imaging protocol: Radiologic exam of the chest. Views: 1 view. Total images: 299 COMPARISON: CR XR chest 1V portable [id number] 04/17/2022 8:58 PM FINDINGS: Lungs: Nonspecific mild bibasilar opacities left greater than right, favoring atelectasis or pneumonia. Pleural spaces: Unremarkable. No pleural effusion. No pneumothorax. Heart/Mediastinum: Low lung volumes are present, accentuating cardiac size and pulmonary markings. Bones/joints: Unremarkable. Gastrointestinal tract: There is gaseous distention of the stomach noted. XR/XR chest 1V portable [id number] IMPRESSION: 1. Low lung volumes are present, accentuating cardiac size and pulmonary markings. 2. Nonspecific mild bibasilar opacities left greater than right, favoring atelectasis or pneumonia.
[2022-04-18 08:35] LABS: Sodium 122 mmol/L (136-145)
--- NOTE | 2022-04-18 08:50 | XRR_ITS ---
PROCEDURE INFORMATION: Exam: XR Abdomen Exam date and time: 04/18/2022 9:42 AM Age: 61 years old Clinical indication: Abdominal tenderness; Patient HX: Abd distention. Extensive bowel gas seen on cxr this a. M. ; Additional info: Andominal distention TECHNIQUE: Imaging protocol: Radiologic exam of the abdomen. Views: Frontal supine view of the abdomen. 1 View. Total images: 1 COMPARISON: CR (CHEST, ) 04/18/2022 8:07 AM FINDINGS: Gastrointestinal tract: Bowel gas pattern is mildly distended but nonobstructive. Bones/joints: Unremarkable. Other findings: Mild stool burden. XR/XR KUB portable [id number] IMPRESSION: 1. Bowel gas pattern is mildly distended but nonobstructive. 2. Mild stool burden.
[2022-04-18] MEDS: hyDRALAzine 10 mg Tablet PO (09:14)
[2022-04-18] MEDS: cloNIDine 0.1 mg Tablet PO ×2 (09:16→20:01)
[2022-04-18] MEDS: quetiapine 25 mg Tablet 50 MG PO ×2 (09:17→18:33)
[2022-04-18] MEDS: sodium chloride 1 gm Tablet PO ×2 (09:18→18:33)
[2022-04-18] MEDS: cyanocobalamin 1,000 mcg/mL SDV 1000 MCG IM (09:20)
[2022-04-18] MEDS: piperacillin-tazobactam 3.375 GM in sodium chloride 0.9% (plus) 50 ML IV ×2 (09:21→18:34)
[2022-04-18 10:08] LABS: ABG PCO2 39.9 mmHg (35-45); ABG PH Result 7.32 (7.35-7.45); Alveolar-Arterial Oxygen Gradi 73.5 mmHg (5-10); Arterial Blood Gas Hematocrit 48.5 % (42-52); Blood Gas Allen Test Pos; Blood Gas Operator Identificat MONRO; Blood Gas Sample Site Radial, right; Blood Gas Sample Type Arterial; Carboxyhemoglobin < 1.0 %THgb (0.4-20.1); HCO3 ABG 20.7 mmol/L (22-26); HGB O2 Sat 96.8 % (95-100); Ionized Calcium Level - ABG 1.1 mmol/L (1.1-1.4); Methemoglobin 0.1 % (0.4-1.5); Oxygen Device NRB; Oxygen Saturation ABG 97.6; PO2 ABG 97.9 mmHg (80.0-100.0); Potassium Level - ABG 3.9 mmol/L (3.5-5.0); Total Hemoglobin 15.8 g/dL (14-18)
--- NOTE | 2022-04-18 10:25 | ECG_ITS ---
[facility] Test Date: 2022-04-18 Pat Name: Aman Daily Department: Room: [facility]04 Gender: Male Piped Pocket Machine Operator: : 1960 Requested By: Niall Patterson Order Number: [id number] Reading MD: Peter Srinivasan Measurements Intervals [place] Rate: 94 P: 47 OR: 157 QRS: 17 QRSD: 93 T: 5 QT: 347 QTc: 435 Interpretive Statements SINUS RHYTHM PROBABLE INFERIOR MYOCARDIAL INFARCTION , PROBABLY OLD [35 ms Q WAVE IN II/aVF] Compared to ECG 04/16/2022 14:04:50 Sinus tachycardia no longer present Myocardial infarct finding still present Electronically Signed On 04-19-2022 15:51:16 PLANT TECHNICAL SPECIALIST by Peter Srinivasan [id number]
[2022-04-18] MEDS: lidocaine 5% Patch 1 PATCH TOPICAL ×2 (10:31→20:21)
--- NOTE | 2022-04-18 10:48 | PC.OT ---
UPON ARRIVAL PT GETTING BLOOD DRAWN; VERY HIGH BP NOTED WHILE SUPINE; OXYGEN BEING MONITORED; D/T MULTIPLE FACTORS, PT UNABLE TO BE SEEN FOR THERAPY. WILL TRY AGAIN TOMORROW.
[2022-04-18 10:57] LABS: D Dimer 0.77 ug/mIFEU (0-0.59)
[2022-04-18] MEDS: hyDRALAzine 25 mg Tablet PO ×2 (11:01→18:33)
[2022-04-18] MEDS: amlodipine 10 mg Tablet PO (11:01)
[2022-04-18 11:04] LABS: Troponin(5th) Baseline 21 ng/L (0-15)
[2022-04-18 11:08] LABS: Lactate (Lactic Acid level) 2.6 mmol/L (0.5-2.2)
[2022-04-18 11:14] LABS: NT Pro B Type Natriuretic Pept 443 pg/mL (0-125); Procalcitonin 0.29 ng/mL (0-0.5)
[2022-04-18 11:25] LABS: C Reactive Protein 34.3 mg/L (0.0-4.9)
--- NOTE | 2022-04-18 11:56 | ECG_ITS ---
[facility] Test Date: 2022-04-18 Pat Name: Aman Daily Department: Room: [facility]04 Gender: Male Extended Day Teacher: : 1960 Requested By: Niall Patterson Order Number: [id number] Reading MD: Peter Srinivasan Measurements Intervals [place] Rate: 93 P: 40 [place]: 156 QRS: 4 QRSD: 89 T: 6 QT: 373 QTc: 464 Interpretive Statements SINUS RHYTHM INFERIOR MYOCARDIAL INFARCTION , PROBABLY OLD [40+ ms Q WAVE AND/OR ST/T ABNORMALITY IN II/aVF] Compared to ECG 04/18/2022 10:25:19 No significant changes Electronically Signed On 04-19-2022 15:26:05 TAXATION AGENT by Peter Srinivasan [id number]
--- NOTE | 2022-04-18 12:00 | CTR_ITS ---
PROCEDURE INFORMATION: Exam: CTA Chest With Contrast Exam date and time: 04/18/2022 4:16 PM Age: 61 years old Clinical indication: Shortness of breath; Additional info: SOB TECHNIQUE: Imaging protocol: Computed tomographic angiography of the chest with contrast. 3D rendering (Not supervised by radiologist): MIP and/or 3D reconstructed images were created by the technologist. Radiation optimization: All CT scans at this facility use at least one of these dose optimization techniques: automated exposure control; mA and/or kV adjustment per patient size (includes targeted exams where dose is matched to clinical indication); or iterative reconstruction. Contrast material: OMNIPAQUE 350; Contrast volume: 86 ml; Contrast route: INTRAVENOUS (IV); COMPARISON: CR (CHEST, ) 04/18/2022 8:07 AM RADIATION DOSE METRICS: Total DLP (mGy-cm): 581.03 FINDINGS: Pulmonary arteries: Normal. No pulmonary emboli. Aorta: Unremarkable. No aortic aneurysm. No aortic dissection. Lungs: There is right middle and bilateral lower lobe lung consolidation. Pleural spaces: Unremarkable. No pneumothorax. No pleural effusion. Heart: Unremarkable. No cardiomegaly. No pericardial effusion. Lymph nodes: Unremarkable. No enlarged lymph nodes. Bones/joints: Degenerative change is identified in the spine. There is no evidence for acute fracture or malalignment. Soft tissues: Unremarkable. CT/CT angio chest PE protcl [id number] IMPRESSION: There is consolidation in the right middle and bilateral lower lobes of the lung consistent with atelectasis and/or pneumonia.
--- NOTE | 2022-04-18 12:10 | CTR_ITS ---
PROCEDURE INFORMATION: Exam: CT Head Without Contrast Exam date and time: 04/18/2022 4:12 PM Age: 61 years old Clinical indication: Altered mental status/memory loss; Additional info: AMS TECHNIQUE: Imaging protocol: Computed tomography of the head without contrast. Radiation optimization: All CT scans at this facility use at least one of these dose optimization techniques: automated exposure control; mA and/or kV adjustment per patient size (includes targeted exams where dose is matched to clinical indication); or iterative reconstruction. COMPARISON: CT head wo con* [id number] 04/16/2022 8:21 PM RADIATION DOSE METRICS: Total DLP (mGy-cm): 1190.48 FINDINGS: Brain: Mild cortical volume loss. Mild hypodensities in supratentorial periventricular and subcortical white matter, consistent with microangiopathy. No intracranial hemorrhage. Cerebral ventricles: No ventriculomegaly. Paranasal sinuses: Visualized sinuses are unremarkable. No fluid levels. Mastoid air cells: Visualized mastoid air cells are well aerated. Bones/joints: Unremarkable. No acute fracture. Soft tissues: Unremarkable. Vasculature: No hyperdense artery. CT/CT head wo con* [id number] IMPRESSION: No acute intracranial abnormality.
[2022-04-18 12:32] LABS: Troponin 5 2HR 24.52 ng/L (0-15); Troponin 5 2HR Delta 3.52 ABS# (0-10)
[2022-04-18 12:34] LABS: Sodium 124 mmol/L (136-145)
--- NOTE | 2022-04-18 13:38 | PM.PN ---
Subjective Subjective: c/o weakness Medications: Reviewed: Yes Vitals/I&O/Wt Last Vital Signs Temp 97.7 F 04/18/22 10:23 Pulse 79 04/18/22 12:40 Resp 19 H 04/18/22 12:40 BP 118/62 04/18/22 12:40 Pulse Ox 95 04/18/22 12:40 O2 Del Method 04/18/22 07:48 O2 Flow Rate 35 04/18/22 11:22 FiO2 60 04/18/22 11:22 04/17/22 04/18/22 04/18/22 22:59 06:59 14:59 Intake Total 507.354 / 8722.013 4056.827 / 2610.528 0 / 0 Output Total 750 / 750 Balance 507.354 / 1032.701 827.827 / 1860.528 0 / 0 Physical Exam Narrative: Patient is awake alert, no acute distress Neck supple No edema Urinary Catheter Management: Delgado: Cath Placed During This Visit: yes Reason for Continuing Indwelling Catheter: Accurate Measurement of Urinary Output in Critically Ill Patients Urinary Catheter Date of Insertion: 04/16/22 Urinary Catheter Time of Insertion: 16:00 Data 04/18/22 04:21 04/18/22 11:52 Micro: Microbiology 04/15/22 23:30 Gram Stain - Final Cerebrospinal Fluid CSF Culture - Preliminary A&P Assessment and plan (1) Hyponatremia: Plan 1. Hyponatremia: Sodium was 135 worsened to 118 after IVIG started. IVIG can cause severe hyponatremia due to hyperproteinemia , can also cause for hyponatremia. Na 123 today -increase 3% saline to 30 cc an hour continue sodium levels every 4 hours, urine sodium was 129. Urine osmolality pending -We will continue to monitor closely 2. GBS : On IVIG therapy 3. Metabolic acidosis: Mild, monitor Patient evaluated using audiovisual cart. 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
[2022-04-18 13:57] LABS: Adenovirus Not Detected (NOT DETECT); Chlamydia Pneumoniae Not Detected (NOT DETECT); Coronavirus 229E,HKU1,NL63,OC4 Not Detected (NOT DETECT); Human Metapneumovirus Not Detected (NOT DETECT); Human Rhinovirus/Enterovirus Not Detected (NOT DETECT); Influenza A Not Detected (NOT DETECT); Influenza A H1 Not Detected (NOT DETECT); Influenza A H1-2009 Not Detected (NOT DETECT); Influenza A H3 Not Detected (NOT DETECT); Influenza B Not Detected (NOT DETECT); Mycoplasma Pneumoniae Not Detected (NOT DETECT); Parainfluenza Virus Type 1 Not Detected (NOT DETECT); Parainfluenza Virus Type 2 Not Detected (NOT DETECT); Parainfluenza Virus Type 3 Not Detected (NOT DETECT); Parainfluenza Virus Type 4 Not Detected (NOT DETECT); Respiratory Syncytial Virus A Not Detected (NOT DETECT); Respiratory Syncytial Virus B Not Detected (NOT DETECT); SARS-COV-2 Not Detected (NOT DETECT)
[2022-04-18 14:02] LABS: Influenza A Not Detected (NOT DETECT); Influenza A H1 Not Detected (NOT DETECT); Influenza A H1-2009 Not Detected (NOT DETECT); Influenza A H3 Not Detected (NOT DETECT); Influenza B Not Detected (NOT DETECT); Results from Genmark
--- NOTE | 2022-04-18 14:29 | PM.PN ---
Subjective Subjective: - Patient was seen this morning -Overnight he had evidence of respiratory distress, placed on BiPAP he tolerated BiPAP well -However early this morning he had episode of nausea on the BiPAP the BiPAP had to be taken off, given nausea medications -Currently he is on a nonrebreather, family at bedside -He is alert oriented x3, following all commands -During my examination bilateral extremity strength bilaterally is 5 out of 5 has equal sensation bilaterally, ankle jerk reflex is good bilaterally, knee jerk reflex bilaterally is also present and equal in terms of his upper extremity strength, has sensation in both hands, strength is 5 out of 5, has both elbow reflexes good, both thumb reflexes are present, -His respiratory rate is anywhere from 15-25, he is becoming quite anxious, frequently pulling off his facemask, rotating himself in bed, try to get out of bed, no Goals on exam, no wheezing, equal breath sounds bilaterally, does have nasal pain , No intercostal retractions, no suprasternal retractions, at times does have belly breathing -He is alert and oriented x3, he can follow commands, he just very anxious -At times according to family members he does become confused such as he thinks that he is at home, or he does not have a Delgado catheter in place -However he is being orientable -He is on Precedex, he is received multiple anxiety medications -I was upfront and clear with patient and his family, I have 2 options at this point I can give him time with a nonrebreather or even try BiPAP again, he is getting overall better from the Guillain-Covarrubias?, has good reflexes good strength, his ABGs does show hypoxia his chest x-rays are unremarkable, I will do a further work-up the other option is to intubate him to protect his airway and see how he does. -After discussing the risks and benefits, family wants to continue nonrebreather they are okay with elective intubation required, they want to see how he does -Discussed with starting Seroquel to control his anxiety, morphine for, Ativan, continue Precedex -Patient family voiced understanding, all questions answered agreed to proceed -His serum sodium is also improving, up to 122, he is on hypertonic saline -Critical care time spent over 50 minutes Vitals/I&O/Wt Last Vital Signs Temp 97.4 F L 04/18/22 14:02 Pulse 79 04/18/22 12:40 Resp 19 H 04/18/22 12:40 BP 118/62 04/18/22 12:40 Pulse Ox 95 04/18/22 12:40 O2 Del Method 04/18/22 07:48 O2 Flow Rate 35 04/18/22 11:22 FiO2 60 04/18/22 11:22 04/17/22 04/18/22 04/18/22 22:59 06:59 14:59 Intake Total 507.354 / 7205.981 7423.827 / 2610.528 50 / 50 Output Total 750 / 750 Balance 507.354 / 1032.701 827.827 / 1860.528 50 / 50 Physical Exam Const: COMMON NORMALS: no acute distress and patient oriented x3 Eye: COMMON NORMALS: EOMs intact bilaterally Resp: COMMON NORMALS: No retractions, No use of accessory muscles and clear to auscultation bilaterally AUSCULTATION: clear to auscultation bilaterally OTHER: Tachypnea Cardio: COMMON NORMALS: regular rhythm, S1 normal heart sound present and S2 normal heart sound present RATE: tachycardic RHYTHM: regular rhythm HEART SOUNDS: S1 normal heart sound present and S2 normal heart sound present GI: COMMON NORMALS: Normal to inspection, nondistended, normoactive bowel sounds present and non-tender Extremity: COMMON NORMALS: no pedal edema Neuro: COMMON NORMALS: patient oriented x3, CN's II-XII intact bilaterally and moves all extremities OTHER: Neurologic to see as above Psych: COMMON NORMALS: mental status grossly normal Urinary Catheter Management: Delgado: Cath Placed During This Visit: yes Reason for Continuing Indwelling Catheter: Accurate Measurement of Urinary Output in Critically Ill Patients Urinary Catheter Date of Insertion: 04/16/22 Urinary Catheter Time of Insertion: 16:00 Data 04/18/22 04:21 04/18/22 11:52 Micro: Microbiology 04/15/22 23:30 Gram Stain - Final Cerebrospinal Fluid CSF Culture - Preliminary A&P Assessment and plan (1) Acute respiratory failure with hypoxia: (2) Acute encephalopathy: (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, AIDP Currently in the ICU due to rapid deterioration, concerns for respiratory compromise nif yesterday at 1 point was 20, now up to 60, now he refuses further need for testing Proximal muscle weakness with numbness and tingling Recent sinus infection CT head CTA head and neck unremarkable CSF is showing protein 70, normal white blood cell count Gram stain and culture so far unremarkable Blood cultures negative so far Head MRI no acute findings Neck MRI no acute findings Has received 1 dose of Decadron Started on IVIG day 3 of 5 B12 deficiency B12 replacement, thiamine, multivitamin Continue doxycycline Prophylaxis Lovenox Speech therapy eval PT OT Patient is showing autonomic dysfunction with hypertension Monitor reflexes, today he has good reflexes bilateral lower lobe bilateral upper extremities, bilateral knees Check tick panel, Lyme panel, ganglioside antibodies Fall precautions Continue pulse ox Monitor respiratory status closely Monitor neurologic symptoms, monitor reflexes PT evaluation in the morning Acute hypoxic respiratory failure -Certainly could be from the 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 however his reflexes in bilateral extremities and upper extremity strength have all returned back to normal -Does not look fluid overloaded but that certainly a possibility we will consider Lasix however for now we will hold given elevated serum sodium -Other thought is given his encephalopathy possible aspiration of started Zosyn -Other thoughts could include pulmonary embolism I ordered a CT angiogram of the chest -Cardiac echocardiogram has also been ordered, monitor BMP, serial EKGs, serial troponins -Currently he is doing well on heated high flow -Consider BiPAP, Reglan, Zofran, promethazine for nausea -I spoke with family, I am doing the best to avoid intubation, we will have to monitor his respiratory status closely, -If his respiratory status continues to decline then we will have to consider elective intubation patient and family wishall questions and agreed to proceed Acute encephalopathy -Likely secondary to to hypoxia, polypharmacy, -We will do CT of the head Severe anxiety -Start Seroquel 50 twice daily -Ativan 1 mg every 4 hours as needed for anxiety -On Precedex drip -Monitor mentation closely, aspiration precautions, neurochecks Hypertensive urgency might be from autonomic dysfunction from AIDP, continue clonidine 0.1 twice daily, increase hydralazine to 25 twice daily, add Norvasc 10 mg once daily Hyponatremia likely secondary to IVIG -Serum sodium improved to 1.2 -Nephrology consult -On hypertonic saline Full code Lovenox for DVT prophylaxis Patient is from [facility] Medical Necessity Statement*: Patient requires hospitalization for acute hypoxic respiratory failure, acute encephalopathy, severe anxiety, hypertensive urgency, Guillain-Covarrubias? 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
--- NOTE | 2022-04-18 15:01 | PC.SLP ---
Attempted to evaluate patient, however, his nurse, Shweta, reported she had just given him medication and he wasn't alert enough to evaluate. Will attempt evaluation when patient is more alert and able to fully participate.
[2022-04-18] MEDS: sodium chloride 3% 500 ML 30 ML IV (15:04)
--- NOTE | 2022-04-18 15:27 | ECG_ITS ---
[facility] Test Date: 2022-04-18 Pat Name: Aman Daily Department: Room: [facility] Gender: Male Sample Wrapper: : 1960 Requested By: Niall Patterson Order Number: [id number] Reading MD: Peter Srinivasan Measurements Intervals [place] Rate: 82 P: 49 [place]: 160 QRS: 21 QRSD: 94 T: 32 QT: 409 QTc: 480 Interpretive Statements SINUS RHYTHM INFERIOR MYOCARDIAL INFARCTION , PROBABLY OLD [40+ ms Q WAVE AND/OR ST/T ABNORMALITY IN II/aVF] Compared to ECG 04/18/2022 11:56:57 No significant change Electronically Signed On 04-19-2022 15:46:42 TREASURY SPECIALIST by Peter Srinivasan [id number]
[2022-04-18] MEDS: iohexol 350 mg/mL 500 mL Btl (per mL) IV (16:23)
--- NOTE | 2022-04-18 16:42 | PC.RESP ---
NIF greater than -24
[2022-04-18 17:11] LABS: Sodium 124 mmol/L (136-145)
[2022-04-18 17:12] LABS: Troponin 5 6HR 21.47 ng/L (0-15)
[2022-04-18 17:13] LABS: Troponin 5 6HR Delta 0.47 ng/L (0-12)
[2022-04-18] MEDS: LORazepam 2 mg/mL INJ 1 mL 1 MG IVP (20:02)
[2022-04-18] MEDS: budesonide 0.5 mg/2 mL Neb INHALATION (20:05)
[2022-04-18] MEDS: ipratropium-albuterol 3 mL Neb INHALATION (20:05)
[2022-04-18 20:57] LABS: Sodium 128 mmol/L (136-145)
[2022-04-19] VITALS (31 sets, daily range): BP systolic 110–161; BP diastolic 66–101; PULSE 72–105; RESP 18–25; TEMP 36.4–37.1; O2SAT 93–98
[2022-04-19] MEDS: piperacillin-tazobactam 3.375 GM in sodium chloride 0.9% (plus) 50 ML IV ×3 (01:23→17:31)
[2022-04-19] MEDS: enoxaparin 40 mg/0.4 mL Syringe SUBCUT (02:23)
[2022-04-19] MEDS: dexmedetomidine 400 MCG in sodium chloride 0.9% (100 ml) 100 ML 13.45 MCG IV ×2 (02:24→05:09)
[2022-04-19 03:15] LABS: ABG PCO2 35.2 mmHg (35-45); ABG PH Result 7.43 (7.35-7.45); Arterial Blood Gas Hematocrit 45.3 % (42-52); Base Excess ABG -0.8 mmol/L (-2.0-2.0); Blood Gas Allen Test Pos; Blood Gas Sample Site Radial, right; Blood Gas Sample Type Arterial; HCO3 ABG 23.1 mmol/L (22-26); Oxygen Device NC; PO2 ABG 93.6 mmHg (80.0-100.0)
[2022-04-19] MEDS: hyDRALAzine 25 mg Tablet PO (04:31)
[2022-04-19 04:51] LABS: Basophils % 0.1 %; Eosinophils % 0.1 %; Hematocrit 40.7 % (42.0-52.0); Lymphocytes % 12.5 %; Mean Corpuscular HGB Conc 34.4 g/dL (30.0-36.0); Mean Corpuscular Hemoglobin 30.8 pg (28.0-34.0); Mean Corpuscular Volume 89.6 fl (80-94); Mean Platelet Volume 8.9 fL (7.4-10.4); Monocytes # 0.8 10^3/uL (0.2-0.9); Monocytes % 9.6 %; Neutrophils # 6.22 10^3/uL (1.8-7.7); Neutrophils % 77.3 %; Nucleated Red Blood Cells % 0 %; Platelet Count 218 10^3/cmm (130-400); Red Blood Count 4.54 10^6/uL (4.1-5.3); Red Cell Distribution Width 12.5 % (12.1-15.1); White Blood Count 8.1 10^3/uL (4.0-10.0)
[2022-04-19 05:07] LABS: Lactate (Lactic Acid level) 0.9 mmol/L (0.5-2.2)
[2022-04-19 05:21] LABS: NT Pro B Type Natriuretic Pept 498 pg/mL (0-125); Procalcitonin 0.32 ng/mL (0-0.5)
[2022-04-19 05:37] LABS: Alanine Aminotransferase 23 U/L (0-41); Albumin Level 3.4 g/dL (3.5-5.2); Alkaline Phosphatase 59 U/L (40-130); Anion Gap 11.6 (5-19); Aspartate Amino Transferase 32 U/L (0-40); Blood Urea Nitrogen 22 mg/dL (8-23); C Reactive Protein 38.7 mg/L (0.0-4.9); Calcium 8.7 mg/dL (8.5-10.5); Carbon Dioxide 21 mmol/L (22-29); Chloride 99 mmol/L (98-107); Globulin 4.6 g/dL (1.3-4.6); Glucose 112 mg/dL (65-115); Osmolality Calculated 270 mOsm/kg (285-295); Phosphorus 1.9 mg/dL (2.5-4.5); Potassium 3.6 mmol/L (3.5-5.1); Sodium 128 mmol/L (136-145); Total Bilirubin 0.4 mg/dL (0.15-1.2)
--- NOTE | 2022-04-19 06:00 | USCV_ITS ---
Aman Daily Age: 61 Gender: M : 1960 Exam Date: 04/19/2022 08:41 Ordering Phys: Niall Patterson MD Technologist: JASON Exam Location: [facility] [place] Indication: SOB BP: 153 / 88 HR: 84 Rhythm: Sinus Technical Quality: TDS MEASUREMENTS (Male / Female) Normal Values 2D ECHO LV Diastolic Diameter PLAX 4.7 cm 4.2 - 5.9 / 3.9 - 5.3 cm LV Systolic Diameter PLAX 2.7 cm IVS Diastolic Thickness 0.7 cm 0.6 - 1.0 / 0.6 - 0.9 cm IVS Systolic Thickness 1.0 cm LVPW Diastolic Thickness 0.7 cm 0.6 - 1.0 / 0.6 - 0.9 cm LVPW Systolic Thickness 1.1 cm LVOT Diameter 2.5 cm LV Ejection Fraction 2D Teich 70.8 % LA Diameter 3.4 cm M-MODE Aortic Annulus Diameter 2.8 cm LA Ao Ratio MM 1.3 MV E Point Septal Separation 0.6 cm DOPPLER AV Peak Velocity 103.0 cm/s LVOT Peak Velocity 86.0 cm/s AV Area Cont Eq vti 3.9 cm squared AV Area Cont Eq pk 4.0 cm squared MV Area PHT 4.3 cm squared Mitral E to A Ratio 1.0 MV E' Velocity 50.0 cm/s Mitral E to MV E' Ratio 12.4 Mitral E to LV E' Lateral Ratio 11.7 Mitral E to LV E' Septal Ratio 13.5 TR Peak Velocity 242.0 cm/s TR Peak Gradient 23.4 mmHg TV Peak E Velocity 79.0 cm/s PV Peak Velocity 131.0 cm/s FINDINGS Left Ventricle Normal left ventricular size, systolic function and wall thickness, with no regional wall motion abnormalities. Normal left ventricular wall thickness. Grade I/IV diastolic dysfunction (abnormal relaxation filling pattern), normal to mildly elevated filling pressures. Right Ventricle The right ventricle is normal in size and function. Right Atrium The right atrium is normal in size. Left Atrium The left atrium is normal in size. Mitral Valve Structurally normal mitral valve without significant stenosis or prolapse. There is no mitral regurgitation. Aortic Valve Structurally normal aortic valve without significant sclerosis or stenosis. There is no aortic regurgitation. Tricuspid Valve Structurally normal tricuspid valve without significant stenosis or regurgitation. Pulmonary artery systolic pressure is normal. Pulmonic Valve Structurally normal pulmonic valve without significant stenosis. There is no pulmonic regurgitation. Pericardium Normal pericardium without effusion. Aorta Normal ascending aorta dimension. IVC The inferior vena cava appears normal. CONCLUSIONS Technically Difficult Study Normal left ventricular size, systolic function and wall thickness, with no regional wall motion abnormalities. Normal left ventricular wall thickness. Grade I/IV diastolic dysfunction (abnormal relaxation filling pattern), normal to mildly elevated filling pressures. Peter Srinivasan MD (Electronically Signed) Final Date: 19 April 2022 13:38 S
--- NOTE | 2022-04-19 06:44 | PM.PN ---
Subjective Subjective: seen and examined in ICU w/ a RN- telehealth visit more awake on hi flow 02. not eating and drinking. He is thirsty and hungry Medications: Reviewed: Yes Medication Review Details: Current Medications Acetaminophen (Acetaminophen 500 Mg Tablet) 500 mg PO Q4H PRN PRN Reason: fever Last Admin: 04/17/22 06:10 Dose: 500 mg Albuterol/Ipratropium (Ipratropium-Albuterol 3 Ml Neb) 3 ml INHALATION Q6H PRN PRN Reason: SHORTNESS OF BREATH Last Admin: 04/18/22 20:05 Dose: 3 ml Amlodipine Besylate (Amlodipine 10 Mg Tablet) 10 mg PO Q24H BHANU Last Admin: 04/18/22 11:01 Dose: 10 mg Budesonide (Budesonide 0.5 Mg/2 Ml Neb) 0.5 mg INHALATION BID.RESPIRATORY BHANU Last Admin: 04/18/22 20:05 Dose: 0.5 mg Clonidine HCl (Clonidine 0.1 Mg Tablet) 0.1 mg PO Q12H BHANU Last Admin: 04/18/22 20:01 Dose: 0.1 mg Cyanocobalamin (Cyanocobalamin 1,000 Mcg/Ml Sdv) 1,000 mcg IM DAILY BHANU Last Admin: 04/18/22 09:20 Dose: 1,000 mcg Diphenhydramine HCl (Diphenhydramine 50 Mg/Ml Sdv 1ml) 25 mg IVP Q4H PRN PRN Reason: ITCHING Last Admin: 04/18/22 05:03 Dose: 25 mg Enoxaparin Sodium (Enoxaparin 40 Mg/0.4 Ml Syringe) 40 mg SUBCUT Q24H BHANU Last Admin: 04/19/22 02:23 Dose: 40 mg Hydralazine HCl (Hydralazine 20 Mg/Ml Inj 1 Ml) 10 mg IVP Q4H PRN PRN Reason: Blood pressure >180/100 Last Admin: 04/17/22 20:25 Dose: 10 mg Hydralazine HCl (Hydralazine 25 Mg Tablet) 25 mg PO Q6H BHANU Last Admin: 04/19/22 04:31 Dose: 25 mg Doxycycline Hyclate 100 mg/ (Sodium Chloride) 100 mls @ 100 mls/hr IV Q12H BHANU; Protocol Last Admin: 04/18/22 23:56 Dose: 100 mls/hr Immune Globulin (Privigen) 300 mls @ 0 mls/hr IV ONCE ONE; Protocol Stop: 04/19/22 14:01 Immune Globulin (Privigen) 200 mls @ 0 mls/hr IV ONCE ONE; Protocol Stop: 04/20/22 14:01 Dexmedetomidine HCl 400 mcg/ (Sodium Chloride) 104 mls @ 0 mls/hr IV .Q0M [facility]; Protocol Last Admin: 04/19/22 05:09 Dose: 0.6 mcg/kg/hr, 13.45 mls/hr Norepinephrine Bitartrate 4 mg (/ Dextrose) 254 mls @ 0 mls/hr IV .Q0M [facility]; Protocol Last Titration: 04/18/22 02:39 Dose: 0 mcg/min, 0 mls/hr Piperacillin Sod/Tazobactam (Sod 3.375 gm/ Sodium Chloride) 50 mls @ 12.5 mls/hr IV Q8H [facility] Last Admin: 04/19/22 01:23 Dose: 12.5 mls/hr Lidocaine (Lidocaine 5% Patch) 1 patch TOPICAL [id number] [facility] Last Admin: 04/18/22 20:21 Dose: 1 patch Lorazepam (Lorazepam 2 Mg/Ml Inj 1 Ml) 1 mg IVP Q4H PRN PRN Reason: ANXIETY Last Admin: 04/18/22 20:02 Dose: 1 mg Metoclopramide HCl (Metoclopramide 5 Mg/Ml Sdv 2 Ml) 5 mg IVP Q6H PRN PRN Reason: NAUSEA AND VOMITING Morphine Sulfate (Morphine 4 Mg/Ml Sdv 1 Ml) 1 mg IVP Q4H PRN PRN Reason: SEVERE PAIN Last Admin: 04/18/22 20:02 Dose: 1 mg Ondansetron HCl (Ondansetron 2 Mg/Ml Sdv 2 Ml) 4 mg IVP Q4H PRN PRN Reason: NAUSEA AND VOMITING Last Admin: 04/18/22 07:41 Dose: 4 mg Promethazine HCl (Promethazine 25 Mg/Ml Sdv 1 Ml) 12.5 mg IM Q6H PRN PRN Reason: NAUSEA Quetiapine Fumarate (Quetiapine 25 Mg Tablet) 50 mg PO BID [facility] Last Admin: 04/18/22 18:33 Dose: 50 mg Sodium Chloride (Saline Nasal [place] 44ml Btl) 1 spray NASAL PRN PRN PRN Reason: DRYNESS Last Admin: 04/16/22 21:40 Dose: 1 spray Sodium Chloride (Sodium Chloride 1 Gm Tablet) 1 gm PO Q12H [facility] Last Admin: 04/18/22 18:33 Dose: 1 gm Thiamine HCl (Thiamine 100 Mg/Ml Sdv) 100 mg IM DAILY [facility] Last Admin: 04/18/22 09:19 Dose: 100 mg Vitals/I&O/Wt Last Vital Signs Temp 98.7 F 04/19/22 03:38 Pulse 87 04/19/22 05:22 Resp 18 04/19/22 02:59 BP 115/76 04/18/22 16:40 Pulse Ox 97 04/19/22 02:59 O2 Del Method 04/19/22 03:38 O2 Flow Rate 25 04/19/22 02:59 FiO2 60 04/19/22 03:38 04/18/22 04/18/22 04/19/22 14:59 22:59 06:59 Intake Total 50 / 50 737.5 / 787.5 196.513 / 984.013 Output Total 525 / 525 1850 / 2375 Balance 50 / 50 212.5 / 262.5 -1653.487 / -1390.987 Physical Exam Narrative: on hi flow 02 at 60%- 35L comfortable heent- nc/at neck supple lungs clear heart reg abd soft, nt, nd, + bs ext no edema neuro- moves, a,a, o x1-2 + ramos Urinary Catheter Management: Ramos: Cath Placed During This Visit: yes Reason for Continuing Indwelling Catheter: Accurate Measurement of Urinary Output in Critically Ill Patients Urinary Catheter Date of Insertion: 04/16/22 Urinary Catheter Time of Insertion: 16:00 Data 04/19/22 04:24 04/19/22 04:24 Micro: Microbiology 04/15/22 23:30 Gram Stain - Final Cerebrospinal Fluid CSF Culture - Preliminary A&P Assessment and plan (1) Hyponatremia: 61 yr old man concern for Guillian- [place]- syndrome. On IvIG and steroids. Concern related to IVIG. -high ur na is concern for SIADH -as serum na is 128- will hold 3% sodium -check chemistreis q 6 hrs 2. htn- improved- dec meds- decreased dose of amlodipine and hydralazine 3. 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
[2022-04-19] MEDS: ipratropium-albuterol 3 mL Neb INHALATION ×3 (08:14→20:21)
[2022-04-19] MEDS: budesonide 0.5 mg/2 mL Neb INHALATION ×2 (08:14→20:21)
[2022-04-19] MEDS: sodium chloride 1 gm Tablet PO ×2 (09:11→19:46)
[2022-04-19] MEDS: docusate sodium 100 mg Capsule PO ×2 (09:12→17:30)
[2022-04-19] MEDS: amlodipine 10 mg Tablet 5 MG PO (09:12)
[2022-04-19] MEDS: cloNIDine 0.1 mg Tablet PO ×2 (09:12→19:48)
[2022-04-19] MEDS: quetiapine 25 mg Tablet 50 MG PO ×2 (09:13→17:30)
[2022-04-19] MEDS: hyDRALAzine 25 mg Tablet 10 MG PO ×3 (09:13→19:47)
[2022-04-19] MEDS: cyanocobalamin 1,000 mcg/mL SDV 1000 MCG IM (09:15)
[2022-04-19] MEDS: lidocaine 5% Patch 1 PATCH TOPICAL (09:37)
[2022-04-19] MEDS: polyethylene glycol 3350 Pkt 17 gm PO (09:41)
--- NOTE | 2022-04-19 12:20 | PM.PN ---
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 he did have some episodes of confusion over the night, but did have a restful night, he tells me that he is hungry, he is currently getting a cardiac echocardiogram, he tells me he feels weak all over, but has good strength in bilateral upper and lower extremities, denies any chest pain, no palpitations, no episode shortness of breath this morning, no fevers overnight Vitals/I&O/Wt Last Vital Signs Temp 98.6 F 04/19/22 10:52 Pulse 80 04/19/22 11:58 Resp 20 H 04/19/22 11:55 BP 131/69 04/19/22 11:58 Pulse Ox 94 04/19/22 11:58 O2 Del Method 04/19/22 11:58 O2 Flow Rate 2 04/19/22 11:58 FiO2 60 04/19/22 11:55 04/18/22 04/19/22 04/19/22 22:59 06:59 14:59 Intake Total 737.5 / 787.5 196.513 / 984.013 150 / 150 Output Total 525 / 525 1850 / 2375 Balance 212.5 / 262.5 -1653.487 / -1390.987 150 / 150 Physical Exam Const: COMMON NORMALS: no acute distress and patient oriented x3 Resp: COMMON NORMALS: normal respiratory effort, No retractions, No use of accessory muscles and clear to auscultation bilaterally AUSCULTATION: clear to auscultation bilaterally Cardio: COMMON NORMALS: regular rate, regular rhythm, S1 normal heart sound present and S2 normal heart sound present RATE: regular rate RHYTHM: regular rhythm HEART SOUNDS: S1 normal heart sound present and S2 normal heart sound present GI: COMMON NORMALS: Normal to inspection, nondistended, normoactive bowel sounds present, non-tender and no masses Extremity: COMMON NORMALS: no pedal edema Neuro: COMMON NORMALS: patient oriented x3, CN's II-XII intact bilaterally, moves all extremities and no focal motor deficits OTHER: Bilateral ankle reflexes present equal and strong Bilateral knee reflexes present and equal and strong Bilateral thumb reflexes equal and present Bilateral elbow reflexes equal and present Equal sensation bilateral lower extremities, equal sensation upper extremity Equal strength upper and lower extremity bilaterally Psych: COMMON NORMALS: mental status grossly normal Urinary Catheter Management: Delgado: Cath Placed During This Visit: yes Reason for Continuing Indwelling Catheter: Accurate Measurement of Urinary Output in Critically Ill Patients Urinary Catheter Date of Insertion: 04/16/22 Urinary Catheter Time of Insertion: 16:00 Data 04/19/22 04:24 04/19/22 04:24 Micro: Microbiology 04/15/22 23:30 Gram Stain - Final Cerebrospinal Fluid CSF Culture - Preliminary Coag positive Staphylococcus A&P Assessment and plan (1) Acute respiratory failure with hypoxia: (2) Acute encephalopathy: (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, AIDP Currently in the ICU due to rapid deterioration, concerns for respiratory compromise Proximal muscle weakness with numbness and tingling, and weakness Recent sinus infection CT head CTA head and neck unremarkable CSF is showing protein 70, normal white blood cell count Gram stain and culture so far unremarkable Blood cultures negative so far Head MRI no acute findings Neck MRI no acute findings Has received 1 dose of Decadron Started on IVIG day 4 of 5 B12 deficiency B12 replacement, thiamine, multivitamin Continue doxycycline for possible tickborne illness although unlikely Prophylaxis Lovenox Speech therapy eval PT OT Patient is showing autonomic dysfunction with hypertension Monitor reflexes, today he has good reflexes bilateral lower and upper extremities, equal strength bilateral upper extremities, equal sensation bilateral upper and lower extremity Check tick panel, Lyme panel, ganglioside antibodies Fall precautions Continue pulse ox Monitor respiratory status closely Monitor neurologic symptoms, monitor reflexes PT evaluation in the morning Overall he is clinically getting better in terms of his strength his reflexes, and sensation Acute hypoxic respiratory failure -Likely secondary to pneumonia -Certainly could be from the 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 however his reflexes in bilateral extremities and upper extremity strength have all returned back to normal -Does not look fluid overloaded but that certainly a possibility we will consider Lasix however for now we will hold given elevated serum sodium -Other thought is given his encephalopathy, likely aspiration started on Zosyn -CT angiogram was negative lobar pneumonia, or pulmonary embolism, but did show consolidation right middle and bilateral lower lobes, likely pneumonia, continue Zosyn -Cardiac echocardiogram has also been pending, BMP slightly elevated -Currently he is doing well on heated high flow, will de-escalate -Consider BiPAP, Reglan, Zofran, promethazine for nausea -I spoke with family, his respiratory state has improved, will continue to monitor, agreeable to elective intubation if required -If his respiratory status continues to decline then we will have to consider elective intubation patient and family wishall questions and agreed to proceed Acute encephalopathy, currently alert oriented x3 -Likely secondary to to hypoxia, polypharmacy, -CT of the head negative for cerebral edema Severe anxiety -Continue Seroquel 50 twice daily -Ativan 1 mg every 4 hours as needed for anxiety -On Precedex drip -Monitor mentation closely, aspiration precautions, neurochecks Hypertensive urgency might be from autonomic dysfunction from AIDP, blood pressure improving, Hyponatremia likely secondary to IVIG -Serum sodium improved to 1-8 -Nephrology consult -Off hypertonic saline I was called by the lab as patient's CSF studies was positive for coagulase positive staphylococci, this is likely contamination given his ESF studies -However for now we will start vancomycin follow CSF cultures, if negative by tomorrow likely contamination stop vancomycin Today had a detailed discussion with patient, patient's , about overall prognosis Guillain-Covarrubias?, his improvement, he is on day 4 of treatment, we could potentially discharge in the next 2 days if his respiratory status improves, discussed that they want to do outpatient physical therapy Full code Lovenox for DVT prophylaxis Patient is from [facility] Medical Necessity Statement*: Patient requires hospitalization for 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
[2022-04-19 12:52] LABS: Anion Gap 10.5 (5-19); Blood Urea Nitrogen 22 mg/dL (8-23); Calcium 8.8 mg/dL (8.5-10.5); Carbon Dioxide 22 mmol/L (22-29); Chloride 100 mmol/L (98-107); Glucose 149 mg/dL (65-115); Osmolality Calculated 274 mOsm/kg (285-295); Potassium 3.5 mmol/L (3.5-5.1); Sodium 129 mmol/L (136-145)
[2022-04-19] MEDS: dexmedetomidine 400 MCG in sodium chloride 0.9% (100 ml) 100 ML 8.96 MCG IV (13:47)
[2022-04-19] MEDS: doxycycline 100 MG in sodium chloride 0.9% (plus) 100 ML IV (13:47)
[2022-04-19] MEDS: vancomycin 1,250 MG/250 ML PIGGYBACK 250 MG IV (15:16)
--- NOTE | 2022-04-19 15:27 | PC.NURSE ---
Contacted pharmacy to confirm dosing of Immune Globulin. See MAR.
--- NOTE | 2022-04-19 16:04 | PC.NURSE ---
Patient spent approximately two hours up to chair in room. Assisted by two nurses for transfer.
[2022-04-19 19:45] LABS: Anion Gap 12.5 (5-19); Blood Urea Nitrogen 20 mg/dL (8-23); Calcium 8.9 mg/dL (8.5-10.5); Carbon Dioxide 23 mmol/L (22-29); Chloride 101 mmol/L (98-107); Glucose 111 mg/dL (65-115); Osmolality Calculated 279 mOsm/kg (285-295); Potassium 3.5 mmol/L (3.5-5.1); Sodium 133 mmol/L (136-145)
[2022-04-19] MEDS: morphine 4 mg/mL SDV 1 mL 1 MG IVP (21:34)
[2022-04-20] VITALS (39 sets, daily range): BP systolic 112–192; BP diastolic 75–123; PULSE 65–120; RESP 13–38; TEMP 36.8; O2SAT 89–98
[2022-04-20] MEDS: doxycycline 100 MG in sodium chloride 0.9% (plus) 100 ML IV ×2 (00:49→12:16)
[2022-04-20 01:39] LABS: Anion Gap 13.2 (5-19); Blood Urea Nitrogen 19 mg/dL (8-23); Calcium 8.8 mg/dL (8.5-10.5); Carbon Dioxide 21 mmol/L (22-29); Chloride 103 mmol/L (98-107); Glucose 111 mg/dL (65-115); Osmolality Calculated 281 mOsm/kg (285-295); Potassium 3.2 mmol/L (3.5-5.1); Sodium 134 mmol/L (136-145)
[2022-04-20] MEDS: piperacillin-tazobactam 3.375 GM in sodium chloride 0.9% (plus) 50 ML IV ×3 (01:43→16:10)
--- NOTE | 2022-04-20 02:24 | PC.NURSE ---
Patient reported feeling of needing to void. Patient had been increasingly restless and unable to sleep. Bladder was scanned revealing 600ml on ultrasound. Catheter was manipulated as this nurse prepared to flush and became patent. 800ml removed from catheter and followup scan revealed no bladder retention. Catheter bag emptied and patient/family instructed to report any feelings of needing to void.
[2022-04-20] MEDS: vancomycin 1,250 MG/250 ML PIGGYBACK 250 MG IV ×2 (03:18→13:37)
[2022-04-20] MEDS: enoxaparin 40 mg/0.4 mL Syringe SUBCUT (03:19)
[2022-04-20] MEDS: hyDRALAzine 25 mg Tablet 10 MG PO (03:19)
[2022-04-20] MEDS: dexmedetomidine 400 MCG in sodium chloride 0.9% (100 ml) 100 ML 8.96 MCG IV (05:07)
[2022-04-20] MEDS: hyDRALAzine 20 mg/mL INJ 1 mL 10 MG IVP (05:07)
[2022-04-20] MEDS: morphine 4 mg/mL SDV 1 mL 1 MG IVP (05:31)
[2022-04-20 06:18] LABS: Basophils % 0.2 %; Eosinophils % 0.4 %; Hematocrit 40.6 % (42.0-52.0); Hemoglobin 14.2 g/dL (11.7-16.6); Lymphocytes # 1.1 10^3/uL (0.8-4.8); Mean Corpuscular Hemoglobin 31.5 pg (28.0-34.0); Mean Platelet Volume 8.8 fL (7.4-10.4); Monocytes % 11.5 %; Neutrophils # 6.37 10^3/uL (1.8-7.7); Neutrophils % 74.5 %; Nucleated Red Blood Cells % 0 %; Platelet Count 254 10^3/cmm (130-400); Red Blood Count 4.51 10^6/uL (4.1-5.3); Red Cell Distribution Width 12.5 % (12.1-15.1); White Blood Count 8.5 10^3/uL (4.0-10.0)
--- NOTE | 2022-04-20 06:38 | PC.NURSE ---
Patient's spouse requested this nurse's attention around 0500 this morning. Patient reported that they couldn't breath. sP02 was 94% upon entering the patient's room. Patient was instructed on breathing to control hyperventilation. 1mg morphine administered. Vitals remained steady. Several attempts were made to notify hospitalist however webfed offset press operator lines were busy. Patient's respirations trended down and stabilized. Day shift nurse notified of the situation.
[2022-04-20 06:41] LABS: Anion Gap 13.2 (5-19); Blood Urea Nitrogen 20 mg/dL (8-23); Calcium 8.7 mg/dL (8.5-10.5); Carbon Dioxide 20 mmol/L (22-29); Chloride 103 mmol/L (98-107); Glucose 118 mg/dL (65-115); Osmolality Calculated 280 mOsm/kg (285-295); Potassium 3.2 mmol/L (3.5-5.1); Sodium 133 mmol/L (136-145)
--- NOTE | 2022-04-20 07:06 | P.PN_ITS ---
Subjective Subjective: still sob on hi- flow 02. more awake and alert. is on a thickened diet. no n/v/f/c/briseno/d/leg pains Medications: Reviewed: Yes Medication Review Details: Current Medications Acetaminophen (Acetaminophen 500 Mg Tablet) 500 mg PO Q4H PRN PRN Reason: fever Last Admin: 04/17/22 06:10 Dose: 500 mg Albuterol/Ipratropium (Ipratropium-Albuterol 3 Ml Neb) 3 ml INHALATION Q6H PRN PRN Reason: SHORTNESS OF BREATH Last Admin: 04/19/22 20:21 Dose: 3 ml Amlodipine Besylate (Amlodipine 10 Mg Tablet) 5 mg PO Q24H BHANU Last Admin: 04/19/22 09:12 Dose: 5 mg Budesonide (Budesonide 0.5 Mg/2 Ml Neb) 0.5 mg INHALATION BID.RESPIRATORY BHANU Last Admin: 04/19/22 20:21 Dose: 0.5 mg Clonidine HCl (Clonidine 0.1 Mg Tablet) 0.1 mg PO Q12H BHANU Last Admin: 04/19/22 19:48 Dose: 0.1 mg Cyanocobalamin (Cyanocobalamin 1,000 Mcg/Ml Sdv) 1,000 mcg IM DAILY BHANU Last Admin: 04/19/22 09:15 Dose: 1,000 mcg Diphenhydramine HCl (Diphenhydramine 50 Mg/Ml Sdv 1ml) 25 mg IVP Q4H PRN PRN Reason: ITCHING Last Admin: 04/18/22 05:03 Dose: 25 mg Docusate Sodium (Docusate Sodium 100 Mg Capsule) 100 mg PO BID BHANU Last Admin: 04/19/22 17:30 Dose: 100 mg Enoxaparin Sodium (Enoxaparin 40 Mg/0.4 Ml Syringe) 40 mg SUBCUT Q24H BHANU Last Admin: 04/20/22 03:19 Dose: 40 mg Hydralazine HCl (Hydralazine 20 Mg/Ml Inj 1 Ml) 10 mg IVP Q4H PRN PRN Reason: Blood pressure >180/100 Last Admin: 04/20/22 05:07 Dose: 10 mg Hydralazine HCl (Hydralazine 25 Mg Tablet) 10 mg PO Q6H BHANU Last Admin: 04/20/22 03:19 Dose: 10 mg Doxycycline Hyclate 100 mg/ (Sodium Chloride) 100 mls @ 100 mls/hr IV Q12H [facility]; Protocol Last Infusion: 04/20/22 06:34 Dose: Infused Immune Globulin (Privigen) 200 mls @ 0 mls/hr IV ONCE ONE; Protocol Stop: 04/20/22 14:01 Dexmedetomidine HCl 400 mcg/ (Sodium Chloride) 104 mls @ 0 mls/hr IV .Q0M [facility]; Protocol Last Titration: 04/20/22 05:10 Dose: 0.5 mcg/kg/hr, 11.2 mls/hr Piperacillin Sod/Tazobactam (Sod 3.375 gm/ Sodium Chloride) 50 mls @ 12.5 ml s/hr IV Q8H [facility] Last Infusion: 04/20/22 06:34 Dose: Infused Vancomycin/PEG/NADA/Lysine/Water (Vancocin) 1,250 mg in 250 mls @ 250 mls/hr IV Q12H [facility] Last Infusion: 04/20/22 06:35 Dose: Infused Lidocaine (Lidocaine 5% Patch) 1 patch TOPICAL [id number] [facility] Last Admin: 04/19/22 21:24 Dose: Not Given Lorazepam (Lorazepam 2 Mg/Ml Inj 1 Ml) 1 mg IVP Q4H PRN PRN Reason: ANXIETY Last Admin: 04/18/22 20:02 Dose: 1 mg Metoclopramide HCl (Metoclopramide 5 Mg/Ml Sdv 2 Ml) 5 mg IVP Q6H PRN PRN Reason: NAUSEA AND VOMITING Morphine Sulfate (Morphine 4 Mg/Ml Sdv 1 Ml) 1 mg IVP Q4H PRN PRN Reason: SEVERE PAIN Last Admin: 04/20/22 05:31 Dose: 1 mg Multi-Ingredient Ointment (Eucerin Cream 113 Gm Jar) 1 applic TOPICAL PRN PRN PRN Reason: DRYNESS Ondansetron HCl (Ondansetron 2 Mg/Ml Sdv 2 Ml) 4 mg IVP Q4H PRN PRN Reason: NAUSEA AND VOMITING Last Admin: 04/18/22 07:41 Dose: 4 mg Polyethylene Glycol (Polyethylene Glycol 3350 Pkt 17 Gm) 17 gm PO DAILY [facility] Last Admin: 04/19/22 09:41 Dose: 17 gm Promethazine HCl (Promethazine 25 Mg/Ml Sdv 1 Ml) 12.5 mg IM Q6H PRN PRN Reason: NAUSEA Quetiapine Fumarate (Quetiapine 25 Mg Tablet) 50 mg PO BID [facility] Last Admin: 04/19/22 17:30 Dose: 50 mg Sodium Chloride (Saline Nasal [place] 44ml Btl) 1 spray NASAL PRN PRN PRN Reason: DRYNESS Last Admin: 04/16/22 21:40 Dose: 1 spray Sodium Chloride (Sodium Chloride 1 Gm Tablet) 1 gm PO Q12H [facility] Last Admin: 04/19/22 19:46 Dose: 1 gm Thiamine HCl (Thiamine 100 Mg/Ml Sdv) 100 mg IM DAILY [facility] Last Admin: 04/19/22 09:15 Dose: 100 mg Vitals/I&O/Wt Last Vital Signs Temp 97.6 F 04/19/22 20:14 Pulse 79 04/20/22 06:37 Resp 18 04/20/22 06:37 BP 178/107 04/20/22 04:28 Pulse Ox 97 04/20/22 06:37 O2 Del Method 04/19/22 20:21 O2 Flow Rate 40 04/20/22 06:37 FiO2 55 04/20/22 06:37 04/19/22 04/20/22 04/20/22 22:59 06:59 14:59 Intake Total 1076.635 / 1500.635 949.813 / 2450.448 Output Total 1100 / 1100 1350 / 2450 Balance -23.365 / 400.635 -400.187 / 0.448 Physical Exam Narrative: on hi flow 02 at 60%- 35L- BP elevated comfortable heent- nc/at neck supple lungs clear heart reg abd soft, nt, nd, + bs ext no edema neuro- moves, a,a, o x 2 + ramos Urinary Catheter Management: Ramos: Cath Placed During This Visit: yes Reason for Continuing Indwelling Catheter: Accurate Measurement of Urinary Output in Critically Ill Patients Urinary Catheter Date of Insertion: 04/16/22 Urinary Catheter Time of Insertion: 16:00 Data 04/20/22 06:10 04/20/22 06:10 Micro: Microbiology 04/15/22 23:30 Gram Stain - Final Cerebrospinal Fluid CSF Culture - Preliminary Coag positive Staphylococcus A&P Assessment and plan (1) Hyponatremia: 61 yr old man concern for Guillian- [place]- syndrome. On IvIG and steroids. Concern related to IVIG. -high ur na is concern for SIADH -as serum na is 133, off ofd 3% sodium -check chemistreis q 12 hrs 2. htn- can be autonomic dysfunction- increase doses of clonidine and hydralazine 3. replace k seen and examined w/ RN- telehealth visit time spent 30 minutes Plan as above Attestations Medical Necessity Statement*: GBS per medicine and uncontrolled htn Time Spent in Patient Care: 16 - 35 minutes (>than 50% of time spent in counselling and/or direct pt care on unit) . Coding Level of Care Code Acute Seasoner Hand for Juan J Vergara Diagnoses Hyponatremia E87.1
[2022-04-20] MEDS: hyDRALAzine 25 mg Tablet PO ×3 (07:37→20:16)
[2022-04-20] MEDS: potassium chloride ER 20 mEq Tablet 40 MEQ PO (07:37)
[2022-04-20] MEDS: amlodipine 10 mg Tablet 5 MG PO (07:38)
[2022-04-20] MEDS: sodium chloride 1 gm Tablet PO ×2 (07:38→20:16)
[2022-04-20] MEDS: cloNIDine 0.1 mg Tablet PO ×3 (08:12→20:18)
[2022-04-20] MEDS: docusate sodium 100 mg Capsule PO ×2 (08:13→17:06)
[2022-04-20] MEDS: lidocaine 5% Patch 1 PATCH TOPICAL ×2 (08:13→20:18)
[2022-04-20] MEDS: quetiapine 25 mg Tablet 50 MG PO ×2 (08:13→17:06)
[2022-04-20] MEDS: cyanocobalamin 1,000 mcg/mL SDV 1000 MCG IM (08:16)
--- NOTE | 2022-04-20 08:31 | XR_ITS ---
WS: [id number] Exam: XR chest 1V portable [id number] Date/Time of Exam: 04/20/2022 8:33 AM Reason For Exam: sob Comparison 06/19/2021. The lungs are fully expanded. Heart size top limits normal. No pleural effusions. Chronic plaque atel ectasis in the right base. Low lung volumes secondary to limited inspiration. The bony thorax is unre markable. The mediastinum is unremarkable for technique. Monitoring leads superimpose the chest. XR/XR chest 1V portable [id number] IMPRESSION: 1. No acute process noted. 2. Chronic right basal plaque atelectasis. Decreased lung volumes secondary to limited inspiration. No significant change.
[2022-04-20] MEDS: ipratropium-albuterol 3 mL Neb INHALATION ×2 (08:47→19:55)
[2022-04-20] MEDS: budesonide 0.5 mg/2 mL Neb INHALATION ×2 (08:47→19:55)
[2022-04-20] MEDS: LORazepam 2 mg/mL INJ 1 mL 1 MG IVP (12:16)
--- NOTE | 2022-04-20 12:18 | PC.CHAP ---
Pastoral Care Encounter/Spiritual Assessment Type of Contact [] Declined real time analyst visit [] Patient/Family/Request visit [] Outpatient visit [] Follow-up visit [] Physician referral [] Code/Alert [x] Routine visit [] Staff referral [] Actively dying [] Patient sleeping [x] Family support [] [] Out of room [] Palliative care [] [x] Receiving care in room [] Pre-surgical visit [] Trauma [] Long length of stay [x] ICU visit [] Other: Relational/Emotional Strength [] Patient feels connected with others/family/visitors/staff [] Distress [] Loneliness/isolation [] Abandonment Spirituality of Patient [] Person of Mira [] Attends Adventist of their Mira [] Believes in Prayer [] Reads Bible or Scientologist materials [] There are Spiritual issues to be addressed Rn Placement Interventions [x] Prayer [] Active listening [] Non-anxious presence [] Spiritual/emotional support [] Crisis/trauma care [] Spiritual counseling [] Bereavement support [] Provided bereavement packet [] Provided Bible/devotional materials [] Provided toy/stuffed animal, coloring book to patient or family member [] Provided Communion [] Anointing/[place] [] Salvation [x] Completed spiritual assessment [] Other: Impact on Illness or Injury [] Angry [] Fearful [] Anxious [] Often cries [] Exhaustion [] Unable to work [] Unable to attend baptist [] Unable to walk/stand [] Unable to read [] Unable to drive [] Unable to eat/drink [] Unable to sleep [] Unable to be with family [] Patient intubated [] Other: Summary Time spent with patient
[2022-04-20] MEDS: dexmedetomidine 400 MCG in sodium chloride 0.9% (100 ml) 100 ML 15.69 MCG IV (12:33)
[2022-04-20 12:41] LABS: Anion Gap 13.7 (5-19); Blood Urea Nitrogen 20 mg/dL (8-23); Carbon Dioxide 21 mmol/L (22-29); Chloride 103 mmol/L (98-107); Glucose 108 mg/dL (65-115); Osmolality Calculated 281 mOsm/kg (285-295); Potassium 3.7 mmol/L (3.5-5.1); Sodium 134 mmol/L (136-145)
[2022-04-20 12:42] LABS: Vancomycin Trough 10.1 ug/mL (10-15)
--- NOTE | 2022-04-20 16:09 | PM.PN ---
Subjective Subjective: Patient was seen and examined this morning, extremely tachycardic tachypneic anxious, is also having difficulty with speech, is complaining of difficulty with swallowing, currently he is saturating well on minimum supplemental oxygen through nasal cannula, heated high flow has been stopped. He has worked with physical therapy today, will stop Precedex, use Ativan IV as needed, continue with Seroquel. CSF culture is growing staph aureus: Currently covered with vancomycin: In the current clinical contex:Culture appears more of contamination. He will complete his 5-day course of IVIG today. Serum sodium is improving. Medications: Reviewed: Yes Medication Review Details: Generic Name Dose Route Start Last Admin Trade Name Freq PRN Reason Stop Dose Admin Acetaminophen 500 mg 04/16/22 02:09 04/17/22 06:10 Acetaminophen 50 0 Mg Tablet PO 500 mg Q4H PRN Administration fever Albuterol/Ipratrop ium 3 ml 04/16/22 02:09 04/20/22 08:47 Ipratropium-Albu terol 3 Ml Neb INHALATION 3 ml Q6H PRN Administration SHORTNESS OF ERICK TH Amlodipine Besylat e 5 mg 04/19/22 08:00 04/20/22 07:38 Amlodipine 10 Mg Tablet PO 5 mg Q24H BHANU Administration Budesonide 0.5 mg 04/18/22 20:00 04/20/22 08:47 Budesonide 0.5 M g/2 Ml Neb INHALATION 0.5 mg BID.RESPIRATORY S CH Administration Clonidine HCl 0.1 mg 04/20/22 09:00 04/20/22 08:12 Clonidine 0.1 Mg Tablet PO 0.1 mg TID BHANU Administration Cyanocobalamin 1,000 mcg 04/16/22 13:15 04/20/22 08:16 Cyanocobalamin 1 ,000 Mcg/Ml Sdv IM 1,000 mcg DAILY BHANU Administration Diphenhydramine HC l 25 mg 04/16/22 14:18 04/18/22 05:03 Diphenhydramine 50 Mg/Ml Sdv 1ml IVP 25 mg Q4H PRN Administration ITCHING Docusate Sodium 100 mg 04/19/22 09:00 04/20/22 08:13 Docusate Sodium 100 Mg Capsule PO 100 mg BID BHANU Administration Enoxaparin Sodium 40 mg 04/16/22 02:30 04/20/22 03:19 Enoxaparin 40 Mg /0.4 Ml Syringe SUBCUT 40 mg Q24H BHANU Administration Hydralazine HCl 10 mg 04/16/22 02:19 04/20/22 05:07 Hydralazine 20 M g/Ml Inj 1 Ml IVP 10 mg Q4H PRN Administration Blood pressure >1 80/100 Hydralazine HCl 25 mg 04/20/22 07:11 04/20/22 12:17 Hydralazine 25 M g Tablet PO 25 mg Q6H BHANU Administration Doxycycline Hyclat e 100 mg/ 100 mls @ 100 mls /hr 04/16/22 12:45 04/20/22 12:16 Sodium Chloride IV 100 mls/hr Q12H BHANU Administration Protocol Dexmedetomidine HC l 400 mcg/ 104 mls @ 0 mls/h r 04/17/22 15:00 04/20/22 12:33 Sodium Chloride IV 0.7 mcg/kg/hr .Q0M BHANU 15.69 mls/hr Administration Protocol Per Protocol Piperacillin Sod/T azobactam 50 mls @ 12.5 mls /hr 04/18/22 09:00 04/20/22 08:20 Sod 3.375 gm/ So dium Chloride IV 12.5 mls/hr Q8H BHANU Administration Vancomycin/PEG/NAD A/Lysine/Water 1,250 mg in 250 m ls @ 250 mls/hr 04/19/22 14:00 04/20/22 13:37 Vancocin IV 250 mls/hr Q12H BHANU Administration Lidocaine 1 patch 04/17/22 02:40 04/20/22 08:13 Lidocaine 5% Pat ch TOPICAL 1 patch [id number] BHANU Administration Lorazepam 1 mg 04/18/22 12:11 04/20/22 12:16 Lorazepam 2 Mg/M l Inj 1 Ml IVP 1 mg Q4H PRN Administration ANXIETY Morphine Sulfate 1 mg 04/17/22 16:37 04/20/22 05:31 Morphine 4 Mg/Ml Sdv 1 Ml IVP 1 mg Q4H PRN Administration SEVERE PAIN Ondansetron HCl 4 mg 04/18/22 07:32 04/18/22 07:41 Ondansetron 2 Mg /Ml Sdv 2 Ml IVP 4 mg Q4H PRN Administration NAUSEA AND VOMITI NG Polyethylene Glyco l 17 gm 04/19/22 09:00 04/20/22 08:21 Polyethylene Gly col 3350 Pkt 17 Gm PO Not Given DAILY BHANU Quetiapine Fumarat e 50 mg 04/18/22 09:00 04/20/22 08:13 Quetiapine 25 Mg Tablet PO 50 mg BID BHANU Administration Sodium Chloride 1 spray 04/16/22 20:46 04/16/22 21:40 Saline Nasal Spr ay 44ml Btl NASAL 1 spray PRN PRN Administration DRYNESS Sodium Chloride 1 gm 04/17/22 07:30 04/20/22 07:38 Sodium Chloride 1 Gm Tablet PO 1 gm Q12H BHANU Administration Thiamine HCl 100 mg 04/16/22 14:18 04/20/22 08:21 Thiamine 100 Mg/ Ml Sdv IM 100 mg DAILY BHANU Administration Vitals/I&O/Wt Last Vital Signs Temp 97.6 F 04/19/22 20:14 Pulse 113 H 04/20/22 15:49 Resp 22 H 04/20/22 08:55 BP 192/108 04/20/22 08:30 Pulse Ox 92 04/20/22 15:49 O2 Del Method 04/20/22 08:55 O2 Flow Rate 30 04/20/22 08:55 FiO2 40 04/20/22 08:55 04/20/22 04/20/22 04/20/22 06:59 14:59 22:59 Intake Total 949.813 / 2450.448 332.693 / 332.693 Output Total 1350 / 2450 Balance -400.187 / 0.448 332.693 / 332.693 Physical Exam Const: COMMON NORMALS: patient oriented x3 Resp: COMMON NORMALS: clear to auscultation bilaterally AUSCULTATION: clear to auscultation bilaterally Cardio: COMMON NORMALS: regular rate, regular rhythm, S1 normal heart sound present, S2 normal heart sound present, No gallops present (Cardio), No murmurs present (Cardio), No rub (Cardio) and Peripheral pulses 2+ throughout RATE: regular rate RHYTHM: regular rhythm HEART SOUNDS: S1 normal heart sound present and S2 normal heart sound present PERIPHERAL PULSES: Peripheral pulses 2+ throughout GI: COMMON NORMALS: Normal to inspection, nondistended, normoactive bowel sounds present, Soft to palpation, non-tender, No hepatosplenomegaly present and no masses AUSCULTATION: Yes normoactive bowel sounds PALPATION: Yes Soft to palpation and Yes No hepatosplenomegaly present RECTAL EXAM: Yes deferred Extremity: COMMON NORMALS: no clubbing, cyanosis or edema and no pedal edema Neuro: COMMON NORMALS: patient oriented x3 Urinary Catheter Management: Delgado: Cath Placed During This Visit: yes Reason for Continuing Indwelling Catheter: Accurate Measurement of Urinary Output in Critically Ill Patients Urinary Catheter Date of Insertion: 04/16/22 Urinary Catheter Time of Insertion: 16:00 Data 04/20/22 06:10 04/20/22 12:05 Micro: Microbiology 04/15/22 23:30 Gram Stain - Final Cerebrospinal Fluid CSF Culture - Final Staphylococcus aureus A&P Assessment and plan (1) Acute respiratory failure with hypoxia: (2) Acute encephalopathy: (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, AIDP Currently in the ICU due to rapid deterioration, concerns for respiratory compromise Proximal muscle weakness with numbness and tingling, and weakness Recent sinus infection CT head CTA head and neck unremarkable CSF is showing protein 70, normal white blood cell count Gram stain and culture so far unremarkable Blood cultures negative so far Head MRI no acute findings Neck MRI no acute findings Has received 1 dose of Decadron Started on IVIG day 5 of 5 B12 deficiency B12 replacement, thiamine, multivitamin Continue doxycycline for possible tickborne illness although unlikely Prophylaxis Lovenox Speech therapy eval PT OT Patient is showing autonomic dysfunction with hypertension Monitor reflexes, today he has good reflexes bilateral lower and upper extremities, equal strength bilateral upper extremities, equal sensation bilateral upper and lower extremity Check tick panel, Lyme panel, ganglioside antibodies Fall precautions Continue pulse ox Monitor respiratory status closely Monitor neurologic symptoms, monitor reflexes PT evaluation in the morning Overall he is clinically getting better in terms of his strength his reflexes, and sensation Acute hypoxic respiratory failure -Likely secondary to pneumonia -Certainly could be from the 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 however his reflexes in bilateral extremities and upper extremity strength have all returned back to normal -Does not look fluid overloaded but that certainly a possibility we will consider Lasix however for now we will hold given elevated serum sodium -Other thought is given his encephalopathy, likely aspiration started on Zosyn -CT angiogram was negative lobar pneumonia, or pulmonary embolism, but did show consolidation right middle and bilateral lower lobes, likely pneumonia, continue Zosyn -Cardiac echocardiogram has also been pending, BMP slightly elevated -Currently he is doing well on heated high flow, will de-escalate -Consider BiPAP, Reglan, Zofran, promethazine for nausea -I spoke with family, his respiratory state has improved, will continue to monitor, agreeable to elective intubation if required -If his respiratory status continues to decline then we will have to consider elective intubation patient and family wishall questions and agreed to proceed Acute encephalopathy, currently alert oriented x3 -Likely secondary to to hypoxia, polypharmacy, -CT of the head negative for cerebral edema Severe anxiety -Continue Seroquel 50 twice daily -Ativan 1 mg every 4 hours as needed for anxiety -On Precedex drip -Monitor mentation closely, aspiration precautions, neurochecks Hypertensive urgency might be from autonomic dysfunction from AIDP, blood pressure improving, Hyponatremia likely secondary to IVIG -Serum sodium improved to 1-8 -Nephrology consult -Off hypertonic saline I was called by the lab as patient's CSF studies was positive for coagulase positive staphylococci, this is likely contamination given his ESF studies -However for now we will start vancomycin follow CSF cultures, if negative by tomorrow likely contamination stop vancomycin Full code Lovenox for DVT prophylaxis Patient is from [facility] Medical Necessity Statement*: Patient needs to be in hospital for management of 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. 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
--- NOTE | 2022-04-20 20:44 | PM.PN ---
Subjective Subjective: I saw the patient and at that time his MNIF was severely compromised at 20. He was breathing shallow and had proximal muscle weakness at 3/5 in deltoids and psoas. By the following morning his NIF came out at 60 so it looks like he was getting better very quickly but unfortunately that was a spurious value as he continued to deteriorate over the course of the weekend. IVIG was started 5 days ago and he is completing his fifth day during my exam. He is received a total of 2 g/kg over 5 days. Over the weekend he had to have a Delgado because of urinary retention. His blood pressure has been labile. He developed bifacial weakness but he is still able to eat. He came very close to requiring intubation but has stubbornly held on with incentive spirometry. He developed SIADH and his sodium fell as low as 2018 on 04/17. It is back up to 134 but he had to have some hypertonic saline and fluid restriction. 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 His daughter lives here and he was here to visit when he developed [place]. His weakness started on 13 April. He reportedly still had full strength and normal reflexes on the morning of the but by the time I saw him at noon his strength was 3 out of 5 in deltoids, iliopsoas and he was breathing shallow. His reflexes were absent in the legs when I examined him. He has been a little bit confused at times. Possibly he has had some mild hallucinations. He has not been agitated. He is fully cognizant during my exam and asked good questions. Vitals/I&O/Wt Last Vital Signs Temp 97.6 F 04/19/22 20:14 Pulse 108 H 04/20/22 19:55 Resp 26 H 04/20/22 19:55 BP 143/106 04/20/22 16:09 Pulse Ox 93 04/20/22 19:55 O2 Del Method 04/20/22 19:55 O2 Flow Rate 30 04/20/22 08:55 FiO2 40 04/20/22 08:55 04/20/22 04/20/22 04/20/22 06:59 14:59 22:59 Intake Total 949.813 / 2450.448 1053.526 / 1053.526 300 / 1353.526 Output Total 1350 / 2450 Balance -400.187 / 0.448 1053.526 / 1053.526 300 / 1353.526 Physical Exam Narrative: General: He has some corneal irritation and dry corneas from bifacial weakness. Cranial nerves: He has full eye movements. He has bifacial weakness so that he cannot fully approximate his lips. Tongue strong and protrudes in the midline. Motor: Deltoids 1/5 Biceps 3/5 Triceps 3/5 Wrist extensors 3?4/5 Process Control Board Operator 4/5 Psoas 1/5 Hamstrings 2/5 Quadriceps 2/5 Ankle dorsiflexors 4/5 He is fully areflexic throughout. Cardiac: S1-S2 normal without murmur or gallop. Lungs: Scattered rhonchi Urinary Catheter Management: Delgado: Cath Placed During This Visit: yes Reason for Continuing Indwelling Catheter: Accurate Measurement of Urinary Output in Critically Ill Patients Urinary Catheter Date of Insertion: 04/16/22 Urinary Catheter Time of Insertion: 16:00 Data 04/20/22 06:10 04/20/22 12:05 Micro: Microbiology 04/15/22 23:30 Gram Stain - Final Cerebrospinal Fluid CSF Culture - Final Staphylococcus aureus Other data: ABG 04/19/2022 showing PCO2 35. The only elevated CO2 he has had was on 04/17 when his CO2 got up to 56 so he is maintaining his CO2 level. That may need to be rechecked. A&P Assessment and plan (1) AIDP (acute inflammatory demyelinating polyneuropathy): Acute inflammatory demyelinating polyneuropathy status post IVIG day 5. He has continued to progress over the course of the weekend and he now has bifacial weakness, is getting corneal irritation as a result. He cannot approximate his lips for incentive spirometry. He is going to require neuro rehab. He is currently probably not stable to leave ICU to be transferred to rehab as his respiratory status is tenuous. Continue to monitor carefully. His autonomic dysfunction including blood pressure lability and urinary retention are associated with more severe form of AIDP. The same is true of his profound SIADH. He has continued to worsen neurologically over the course of the last 5 days until now he has severe bifacial weakness and profound weakness of the proximal muscles of upper and lower extremities, much worse than my last exam. Prognosis is guarded as it is not clear whether he has reached disease mars. I spent almost an hour answering questions and talking with the patient and his . Attestations Medical Necessity Statement*: Severe neurologic illness and he is clinically unstable. Time Spent in Patient Care: 1 hour Coding Level of Care Code Acute College Physics Instructor for Juan J Vergara Diagnoses AIDP (acute inflammatory demyelinating polyneuropathy) G61.0
[2022-04-20] MEDS: artificial tears Op Soln 15 mL Btl 1 DROP EYE-BOTH (22:21)
[2022-04-20] MEDS: artificial tears Op Oint 3.5 gm 1 APPLIC EYE-BOTH (22:22)
[2022-04-21] VITALS (45 sets, daily range): BP systolic 115–184; BP diastolic 71–113; PULSE 82–110; RESP 16–26; O2SAT 92–95
[2022-04-21] MEDS: hyDRALAzine 25 mg Tablet PO ×4 (01:25→18:19)
[2022-04-21] MEDS: piperacillin-tazobactam 3.375 GM in sodium chloride 0.9% (plus) 50 ML IV ×3 (01:28→17:06)
[2022-04-21] MEDS: doxycycline 100 MG in sodium chloride 0.9% (plus) 100 ML IV ×3 (01:29→23:45)
[2022-04-21] MEDS: vancomycin 1,250 MG/250 ML PIGGYBACK 250 MG IV ×2 (02:04→15:08)
[2022-04-21] MEDS: enoxaparin 40 mg/0.4 mL Syringe SUBCUT (02:05)
[2022-04-21] MEDS: hyDRALAzine 20 mg/mL INJ 1 mL 10 MG IVP (04:37)
[2022-04-21 04:49] LABS: Basophils % 0.2 %; Eosinophils % 0.4 %; Hematocrit 42.8 % (42.0-52.0); Hemoglobin 14.6 g/dL (11.7-16.6); Lymphocytes % 10.3 %; Mean Corpuscular HGB Conc 34.1 g/dL (30.0-36.0); Mean Corpuscular Hemoglobin 30.8 pg (28.0-34.0); Mean Corpuscular Volume 90.3 fl (80-94); Mean Platelet Volume 8.6 fL (7.4-10.4); Monocytes # 1.3 10^3/uL (0.2-0.9); Monocytes % 13.3 %; Neutrophils # 7.41 10^3/uL (1.8-7.7); Neutrophils % 75.2 %; Nucleated Red Blood Cells % 0 %; Platelet Count 289 10^3/cmm (130-400); Red Blood Count 4.74 10^6/uL (4.1-5.3); White Blood Count 9.9 10^3/uL (4.0-10.0)
[2022-04-21 05:13] LABS: Alanine Aminotransferase 37 U/L (0-41); Albumin Level 3.3 g/dL (3.5-5.2); Alkaline Phosphatase 80 U/L (40-130); Anion Gap 14.7 (5-19); Aspartate Amino Transferase 46 U/L (0-40); Blood Urea Nitrogen 20 mg/dL (8-23); Calcium 9.3 mg/dL (8.5-10.5); Carbon Dioxide 21 mmol/L (22-29); Chloride 106 mmol/L (98-107); Globulin 5.7 g/dL (1.3-4.6); Glucose 115 mg/dL (65-115); Osmolality Calculated 290 mOsm/kg (285-295); Potassium 3.7 mmol/L (3.5-5.1); Sodium 138 mmol/L (136-145); Total Bilirubin 0.7 mg/dL (0.15-1.2)
[2022-04-21] MEDS: sodium chloride 1 gm Tablet PO (07:17)
[2022-04-21] MEDS: cloNIDine 0.1 mg Tablet PO ×3 (08:18→20:42)
[2022-04-21] MEDS: amlodipine 10 mg Tablet 5 MG PO (08:18)
[2022-04-21] MEDS: cyanocobalamin 1,000 mcg/mL SDV 1000 MCG IM (08:18)
[2022-04-21] MEDS: lidocaine 5% Patch 1 PATCH TOPICAL (08:19)
[2022-04-21] MEDS: docusate sodium 100 mg Capsule PO ×2 (08:19→17:06)
[2022-04-21] MEDS: polyethylene glycol 3350 Pkt 17 gm PO (08:20)
[2022-04-21] MEDS: quetiapine 25 mg Tablet 50 MG PO ×2 (08:20→17:06)
[2022-04-21] MEDS: budesonide 0.5 mg/2 mL Neb INHALATION ×2 (08:24→19:44)
[2022-04-21] MEDS: ipratropium-albuterol 3 mL Neb INHALATION (08:24)
--- NOTE | 2022-04-21 10:19 | PC.CHAP ---
Pastoral Care Encounter/Spiritual Assessment Type of Contact [] Declined tank washer visit [] Patient/Family/Request visit [] Outpatient visit [] Follow-up visit [] Physician referral [] Code/Alert [x] Routine visit [] Staff referral [] Actively dying [] Patient sleeping [x] Family support [] [] Out of room [] Palliative care [] [] Receiving care in room [] Pre-surgical visit [] Trauma [] Long length of stay [x] ICU visit [] Other: Relational/Emotional Strength [] Patient feels connected with others/family/visitors/staff [] Distress [] Loneliness/isolation [] Abandonment Spirituality of Patient [] Person of Mira [] Attends Pentecostalism of their [place] [] Believes in Prayer [] Reads Bible or Holiness materials [] There are Spiritual issues to be addressed Consumer Electronics Merchandiser Interventions [x] Prayer [] Active listening [] Non-anxious presence [] Spiritual/emotional support [] Crisis/trauma care [] Spiritual counseling [] Bereavement support [] Provided bereavement packet [] Provided Bible/devotional materials [] Provided toy/stuffed animal, coloring book to patient or family member [] Provided Communion [] Anointing/[place] [] Salvation [x] Completed spiritual assessment [] Other: Impact on Illness or Injury [] Angry [] Fearful [] Anxious [] Often cries [] Exhaustion [] Unable to work [] Unable to attend baptism [] Unable to walk/stand [] Unable to read [] Unable to drive [] Unable to eat/drink [] Unable to sleep [] Unable to be with family [] Patient intubated [] Other: Summary Time spent with patient
[2022-04-21] MEDS: ketorolac 30 mg/mL INJ 15 MG IVP ×2 (10:38→17:05)
--- NOTE | 2022-04-21 15:21 | PM.PN ---
Subjective Subjective: Patient was seen and examined this morning, he was complaining of knee pain, wanted his gout medications to be restarted.Completed IVIG 5 days Course.Hyponatremia has resolved. Will discontinue salt tablets. B/P and H/R Control is improving. Working with physical therapy. Medications: Reviewed: Yes Medication Review Details: Generic Name Dose Route Start Last Admin Trade Name Freq PRN Reason Stop Dose Admin Acetaminophen 500 mg 04/16/22 02:09 04/17/22 06:10 Acetaminophen 50 0 Mg Tablet PO 500 mg Q4H PRN Administration fever Albuterol/Ipratrop ium 3 ml 04/16/22 02:09 04/21/22 08:24 Ipratropium-Albu terol 3 Ml Neb INHALATION 3 ml Q6H PRN Administration SHORTNESS OF ERICK TH Amlodipine Besylat e 5 mg 04/19/22 08:00 04/21/22 08:18 Amlodipine 10 Mg Tablet PO 5 mg Q24H BHANU Administration Artificial Tears 1 drop 04/20/22 20:37 04/20/22 22:21 Artificial Tears Op Soln 15 Ml Btl EYE-BOTH 1 drop Q4H PRN Administration DRY EYE(S) Artificial Tears 1 applic 04/20/22 20:38 04/20/22 22:22 Artificial Tears Op Oint 3.5 Gm EYE-BOTH 1 applic BEDTIME PRN Administration AGITATION Budesonide 0.5 mg 04/18/22 20:00 04/21/22 08:24 Budesonide 0.5 M g/2 Ml Neb INHALATION 0.5 mg BID.RESPIRATORY S CH Administration Clonidine HCl 0.1 mg 04/20/22 09:00 04/21/22 15:07 Clonidine 0.1 Mg Tablet PO 0.1 mg TID BHANU Administration Cyanocobalamin 1,000 mcg 04/16/22 13:15 04/21/22 08:18 Cyanocobalamin 1 ,000 Mcg/Ml Sdv IM 1,000 mcg DAILY BHANU Administration Diphenhydramine HC l 25 mg 04/16/22 14:18 04/18/22 05:03 Diphenhydramine 50 Mg/Ml Sdv 1ml IVP 25 mg Q4H PRN Administration ITCHING Docusate Sodium 100 mg 04/19/22 09:00 04/21/22 08:19 Docusate Sodium 100 Mg Capsule PO 100 mg BID BHANU Administration Enoxaparin Sodium 40 mg 04/16/22 02:30 04/21/22 02:05 Enoxaparin 40 Mg /0.4 Ml Syringe SUBCUT 40 mg Q24H BHANU Administration Hydralazine HCl 10 mg 04/16/22 02:19 04/21/22 04:37 Hydralazine 20 M g/Ml Inj 1 Ml IVP 10 mg Q4H PRN Administration Blood pressure >1 80/100 Hydralazine HCl 25 mg 04/20/22 07:11 04/21/22 13:01 Hydralazine 25 M g Tablet PO 25 mg Q6H BHANU Administration Doxycycline Hyclat e 100 mg/ 100 mls @ 100 mls /hr 04/16/22 12:45 04/21/22 13:00 Sodium Chloride IV 100 mls/hr Q12H BHANU Administration Protocol Dexmedetomidine HC l 400 mcg/ 104 mls @ 0 mls/h r 04/17/22 15:00 04/20/22 14:00 Sodium Chloride IV 0 mcg/kg/hr .Q0M BHANU 0 mls/hr Titration Protocol Per Protocol Piperacillin Sod/T azobactam 50 mls @ 12.5 mls /hr 04/18/22 09:00 04/21/22 08:19 Sod 3.375 gm/ So dium Chloride IV 12.5 mls/hr Q8H BHANU Administration Vancomycin/PEG/NAD A/Lysine/Water 1,250 mg in 250 m ls @ 250 mls/hr 04/19/22 14:00 04/21/22 15:08 Vancocin IV 250 mls/hr Q12H BHANU Administration Ketorolac Trometha mine 15 mg 04/21/22 10:30 04/21/22 10:38 Ketorolac 30 Mg/ Ml Inj IVP 04/26/22 10:29 15 mg Q6H BHANU Administration Lidocaine 1 patch 04/17/22 02:40 04/21/22 08:19 Lidocaine 5% Pat ch TOPICAL 1 patch [id number] BHANU Administration Lorazepam 1 mg 04/18/22 12:11 04/20/22 12:16 Lorazepam 2 Mg/M l Inj 1 Ml IVP 1 mg Q4H PRN Administration ANXIETY Morphine Sulfate 1 mg 04/17/22 16:37 04/20/22 05:31 Morphine 4 Mg/Ml Sdv 1 Ml IVP 1 mg Q4H PRN Administration SEVERE PAIN Ondansetron HCl 4 mg 04/18/22 07:32 04/18/22 07:41 Ondansetron 2 Mg /Ml Sdv 2 Ml IVP 4 mg Q4H PRN Administration NAUSEA AND VOMITI NG Polyethylene Glyco l 17 gm 04/19/22 09:00 04/21/22 08:20 Polyethylene Gly col 3350 Pkt 17 Gm PO 17 gm DAILY BHANU Administration Quetiapine Fumarat e 50 mg 04/18/22 09:00 04/21/22 08:20 Quetiapine 25 Mg Tablet PO 50 mg BID BHANU Administration Sodium Chloride 1 spray 04/16/22 20:46 04/16/22 21:40 Saline Nasal Spr ay 44ml Btl NASAL 1 spray PRN PRN Administration DRYNESS Sodium Chloride 1 gm 04/17/22 07:30 04/21/22 07:17 Sodium Chloride 1 Gm Tablet PO 1 gm Q12H BHANU Administration Thiamine HCl 100 mg 04/16/22 14:18 04/21/22 08:18 Thiamine 100 Mg/ Ml Sdv IM 100 mg DAILY BHANU Administration Vitals/I&O/Wt Last Vital Signs Temp 98.2 F 04/20/22 20:00 Pulse 110 H 04/21/22 12:30 Resp 22 H 04/21/22 12:30 BP 131/71 04/21/22 15:07 Pulse Ox 93 04/21/22 12:30 O2 Del Method 04/21/22 08:05 O2 Flow Rate 30 04/20/22 08:55 FiO2 40 04/20/22 20:00 04/21/22 04/21/22 04/21/22 06:59 14:59 22:59 Intake Total 640 / 2443.777 450 / 450 Output Total 1000 / 2100 Balance -360 / 343.777 450 / 450 Physical Exam Const: COMMON NORMALS: patient oriented x3 Resp: COMMON NORMALS: clear to auscultation bilaterally AUSCULTATION: clear to auscultation bilaterally Cardio: COMMON NORMALS: regular rate, regular rhythm, S1 normal heart sound present, S2 normal heart sound present, No gallops present (Cardio), No murmurs present (Cardio), No rub (Cardio) and Peripheral pulses 2+ throughout RATE: regular rate RHYTHM: regular rhythm HEART SOUNDS: S1 normal heart sound present and S2 normal heart sound present PERIPHERAL PULSES: Peripheral pulses 2+ throughout GI: COMMON NORMALS: Normal to inspection, nondistended, normoactive bowel sounds present, Soft to palpation, non-tender, No hepatosplenomegaly present and no masses AUSCULTATION: Yes normoactive bowel sounds PALPATION: Yes Soft to palpation and Yes No hepatosplenomegaly present RECTAL EXAM: Yes deferred Extremity: COMMON NORMALS: no clubbing, cyanosis or edema and no pedal edema Neuro: COMMON NORMALS: patient oriented x3 Urinary Catheter Management: Delgado: Cath Placed During This Visit: yes Reason for Continuing Indwelling Catheter: Accurate Measurement of Urinary Output in Critically Ill Patients Urinary Catheter Date of Insertion: 04/16/22 Urinary Catheter Time of Insertion: 16:00 Data 04/21/22 04:36 04/21/22 04:36 Micro: Microbiology 04/15/22 21:27 Blood Culture - Final Blood NO GROWTH AFTER 5 DAYS 04/15/22 21:25 Blood Culture - Final Blood NO GROWTH AFTER 5 DAYS 04/15/22 23:30 Gram Stain - Final Cerebrospinal Fluid CSF Culture - Final Staphylococcus aureus A&P Assessment and plan (1) Acute respiratory failure with hypoxia: (2) Acute encephalopathy: (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, AIDP Currently in the ICU due to rapid deterioration, concerns for respiratory compromise Proximal muscle weakness with numbness and tingling, and weakness Recent sinus infection CT head CTA head and neck unremarkable CSF is showing protein 70, normal white blood cell count Gram stain and culture so far unremarkable Blood cultures negative so far Head MRI no acute findings Neck MRI no acute findings Has received 1 dose of Decadron Started on IVIG day 5 of 5 B12 deficiency B12 replacement, thiamine, multivitamin Continue doxycycline for possible tickborne illness although unlikely Prophylaxis Lovenox Speech therapy eval PT OT Patient is showing autonomic dysfunction with hypertension Monitor reflexes, today he has good reflexes bilateral lower and upper extremities, equal strength bilateral upper extremities, equal sensation bilateral upper and lower extremity Check tick panel, Lyme panel, ganglioside antibodies Fall precautions Continue pulse ox Monitor respiratory status closely Monitor neurologic symptoms, monitor reflexes PT evaluation in the morning Overall he is clinically getting better in terms of his strength his reflexes, and sensation Acute hypoxic respiratory failure -Likely secondary to pneumonia -Certainly could be from the 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 however his reflexes in bilateral extremities and upper extremity strength have all returned back to normal -Does not look fluid overloaded but that certainly a possibility we will consider Lasix however for now we will hold given elevated serum sodium -Other thought is given his encephalopathy, likely aspiration started on Zosyn -CT angiogram was negative lobar pneumonia, or pulmonary embolism, but did show consolidation right middle and bilateral lower lobes, likely pneumonia, continue Zosyn -Cardiac echocardiogram has also been pending, BMP slightly elevated -Currently he is doing well on heated high flow, will de-escalate -Consider BiPAP, Reglan, Zofran, promethazine for nausea -I spoke with family, his respiratory state has improved, will continue to monitor, agreeable to elective intubation if required -If his respiratory status continues to decline then we will have to consider elective intubation patient and family wishall questions and agreed to proceed Acute encephalopathy, currently alert oriented x3 -Likely secondary to to hypoxia, polypharmacy, -CT of the head negative for cerebral edema Severe anxiety -Continue Seroquel 50 twice daily -Ativan 1 mg every 4 hours as needed for anxiety -On Precedex drip -Monitor mentation closely, aspiration precautions, neurochecks Hypertensive urgency might be from autonomic dysfunction from AIDP, blood pressure improving, Hyponatremia likely secondary to IVIG -Serum sodium improved to 1-8 -Nephrology consult -Off hypertonic saline I was called by the lab as patient's CSF studies was positive for coagulase positive staphylococci, this is likely contamination given his ESF studies -However for now we will start vancomycin follow CSF cultures, if negative by tomorrow likely contamination stop vancomycin Full code Lovenox for DVT prophylaxis Patient is from [facility] Medical Necessity Statement*: Patient needs to be in hospital for the management of AIDP. 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
[2022-04-21 17:46] LABS: RMSF IGG NOT DETECTED; RMSF IGM NOT DETECTED
[2022-04-21] MEDS: acetaminophen 500 mg Tablet PO (21:58)
[2022-04-21 21:59] LABS: E. Chaffeensis AB IGG <1:64; E. Chaffeensis AB IGM <1:20
[2022-04-22] VITALS (36 sets, daily range): BP systolic 96–172; BP diastolic 68–100; PULSE 80–105; RESP 22–24; TEMP 37.3; O2SAT 92–95
[2022-04-22] MEDS: piperacillin-tazobactam 3.375 GM in sodium chloride 0.9% (plus) 50 ML IV (00:01)
[2022-04-22] MEDS: hyDRALAzine 25 mg Tablet PO ×4 (00:26→18:48)
[2022-04-22] MEDS: vancomycin 1,250 MG/250 ML PIGGYBACK 250 MG IV ×2 (01:04→13:24)
[2022-04-22] MEDS: enoxaparin 40 mg/0.4 mL Syringe SUBCUT (02:04)
[2022-04-22] MEDS: ketorolac 30 mg/mL INJ IVP (02:15)
[2022-04-22 02:42] LABS: Basophils % 0.3 %; Eosinophils % 0.2 %; Hematocrit 41.7 % (42.0-52.0); Hemoglobin 13.9 g/dL (11.7-16.6); Lymphocytes # 1.5 10^3/uL (0.8-4.8); Lymphocytes % 14.3 %; Mean Corpuscular HGB Conc 33.3 g/dL (30.0-36.0); Mean Corpuscular Volume 93.1 fl (80-94); Mean Platelet Volume 8.9 fL (7.4-10.4); Monocytes # 1.7 10^3/uL (0.2-0.9); Monocytes % 15.5 %; Neutrophils # 7.38 10^3/uL (1.8-7.7); Neutrophils % 69.3 %; Nucleated Red Blood Cells % 0 %; Platelet Count 283 10^3/cmm (130-400); Red Blood Count 4.48 10^6/uL (4.1-5.3); Red Cell Distribution Width 13.2 % (12.1-15.1); White Blood Count 10.6 10^3/uL (4.0-10.0)
[2022-04-22 03:10] LABS: Alanine Aminotransferase 37 U/L (0-41); Alkaline Phosphatase 72 U/L (40-130); Anion Gap 14.3 (5-19); Aspartate Amino Transferase 32 U/L (0-40); Blood Urea Nitrogen 24 mg/dL (8-23); Calcium 9.4 mg/dL (8.5-10.5); Carbon Dioxide 21 mmol/L (22-29); Chloride 105 mmol/L (98-107); Globulin 5.2 g/dL (1.3-4.6); Glomerular Filtration Rate 85.5 mL/min (90-130); Glucose 103 mg/dL (65-115); Osmolality Calculated 288 mOsm/kg (285-295); Potassium 3.3 mmol/L (3.5-5.1); Sodium 137 mmol/L (136-145); Total Bilirubin 0.7 mg/dL (0.15-1.2); Total Protein 8.2 g/dL (6.6-8.7)
[2022-04-22] MEDS: budesonide 0.5 mg/2 mL Neb INHALATION ×2 (08:13→19:57)
[2022-04-22] MEDS: ipratropium-albuterol 3 mL Neb INHALATION ×2 (08:13→19:57)
[2022-04-22] MEDS: amlodipine 10 mg Tablet 5 MG PO (08:27)
[2022-04-22] MEDS: potassium chloride ER 20 mEq Tablet 40 MEQ PO (08:27)
[2022-04-22] MEDS: cloNIDine 0.1 mg Tablet PO ×3 (08:27→20:04)
[2022-04-22] MEDS: allopurinol 100 mg Tablet PO (08:27)
[2022-04-22] MEDS: docusate sodium 100 mg Capsule PO ×2 (08:28→17:05)
[2022-04-22] MEDS: polyethylene glycol 3350 Pkt 17 gm PO (08:28)
[2022-04-22] MEDS: quetiapine 25 mg Tablet 50 MG PO ×2 (08:28→17:05)
[2022-04-22] MEDS: cyanocobalamin 1,000 mcg/mL SDV 1000 MCG IM (08:28)
[2022-04-22] MEDS: lidocaine 5% Patch 1 PATCH TOPICAL ×2 (08:34→20:34)
[2022-04-22] MEDS: colchicine 0.6 mg Tablet 0.3 MG PO (08:34)
--- NOTE | 2022-04-22 09:08 | PC.NURSE ---
Dr. Dangelo at bedside, HCP to put in transfer orders. today patient improved from yesterday, able to swallow thin liquids and po medications well, speech has improved no c/o at this time
--- NOTE | 2022-04-22 14:26 | P.PN_ITS ---
Subjective Subjective: Patient was seen and examined this morning, states he feels much better, improving daily, feels constipated. Has good appetite, was complaining of right knee pain, likely secondary to fall.Improved much with ice pack and lidocaine patch. Medications: Reviewed: Yes Medication Review Details: Generic Name Dose Route Start Last Admin Trade Name Freq PRN Reason Stop Dose Admin Acetaminophen 500 mg 04/16/22 02:09 04/21/22 21:58 Acetaminophen 50 0 Mg Tablet PO 500 mg Q4H PRN Administration fever Albuterol/Ipratrop ium 3 ml 04/16/22 02:09 04/22/22 08:13 Ipratropium-Albu terol 3 Ml Neb INHALATION 3 ml Q6H PRN Administration SHORTNESS OF ERICK TH Allopurinol 100 mg 04/22/22 09:00 04/22/22 08:27 Allopurinol 100 Mg Tablet PO 100 mg DAILY BHANU Administration Amlodipine Besylat e 5 mg 04/19/22 08:00 04/22/22 08:27 Amlodipine 10 Mg Tablet PO 5 mg Q24H BHANU Administration Artificial Tears 1 drop 04/20/22 20:37 04/20/22 22:21 Artificial Tears Op Soln 15 Ml Btl EYE-BOTH 1 drop Q4H PRN Administration DRY EYE(S) Artificial Tears 1 applic 04/20/22 20:38 04/20/22 22:22 Artificial Tears Op Oint 3.5 Gm EYE-BOTH 1 applic BEDTIME PRN Administration AGITATION Budesonide 0.5 mg 04/18/22 20:00 04/22/22 08:13 Budesonide 0.5 M g/2 Ml Neb INHALATION 0.5 mg BID.RESPIRATORY S CH Administration Clonidine HCl 0.1 mg 04/20/22 09:00 04/22/22 08:27 Clonidine 0.1 Mg Tablet PO 0.1 mg TID BHANU Administration Colchicine 0.3 mg 04/22/22 09:00 04/22/22 08:34 Colchicine 0.6 M g Tablet PO 0.3 mg DAILY BHANU Administration Cyanocobalamin 1,000 mcg 04/16/22 13:15 04/22/22 08:28 Cyanocobalamin 1 ,000 Mcg/Ml Sdv IM 1,000 mcg DAILY BHANU Administration Diphenhydramine HC l 25 mg 04/16/22 14:18 04/18/22 05:03 Diphenhydramine 50 Mg/Ml Sdv 1ml IVP 25 mg Q4H PRN Administration ITCHING Docusate Sodium 100 mg 04/19/22 09:00 04/22/22 08:28 Docusate Sodium 100 Mg Capsule PO 100 mg BID BHANU Administration Enoxaparin Sodium 40 mg 04/16/22 02:30 04/22/22 02:04 Enoxaparin 40 Mg /0.4 Ml Syringe SUBCUT 40 mg Q24H BHANU Administration Hydralazine HCl 10 mg 04/16/22 02:19 04/21/22 04:37 Hydralazine 20 M g/Ml Inj 1 Ml IVP 10 mg Q4H PRN Administration Blood pressure >1 80/100 Hydralazine HCl 25 mg 04/20/22 07:11 04/22/22 13:24 Hydralazine 25 M g Tablet PO 25 mg Q6H BHANU Administration Dexmedetomidine HC l 400 mcg/ 104 mls @ 0 mls/h r 04/17/22 15:00 04/20/22 14:00 Sodium Chloride IV 0 mcg/kg/hr .Q0M BHANU 0 mls/hr Titration Protocol Per Protocol Vancomycin/PEG/NAD A/Lysine/Water 1,250 mg in 250 m ls @ 250 mls/hr 04/19/22 14:00 04/22/22 13:24 Vancocin IV 250 mls/hr Q12H BHANU Administration Lidocaine 1 patch 04/17/22 02:40 04/22/22 08:34 Lidocaine 5% Pat ch TOPICAL 1 patch [id number] BHANU Administration Morphine Sulfate 1 mg 04/17/22 16:37 04/20/22 05:31 Morphine 4 Mg/Ml Sdv 1 Ml IVP 1 mg Q4H PRN Administration SEVERE PAIN Ondansetron HCl 4 mg 04/18/22 07:32 04/18/22 07:41 Ondansetron 2 Mg /Ml Sdv 2 Ml IVP 4 mg Q4H PRN Administration NAUSEA AND VOMITI NG Polyethylene Glyco l 17 gm 04/19/22 09:00 04/22/22 08:28 Polyethylene Gly col 3350 Pkt 17 Gm PO 17 gm DAILY BHANU Administration Quetiapine Fumarat e 50 mg 04/18/22 09:00 04/22/22 08:28 Quetiapine 25 Mg Tablet PO 50 mg BID BHANU Administration Sodium Chloride 1 spray 04/16/22 20:46 04/16/22 21:40 Saline Nasal Spr ay 44ml Btl NASAL 1 spray PRN PRN Administration DRYNESS Thiamine HCl 100 mg 04/16/22 14:18 04/22/22 08:27 Thiamine 100 Mg/ Ml Sdv IM 100 mg DAILY BHANU Administration Vitals/I&O/Wt Last Vital Signs Temp 98.2 F 04/20/22 20:00 Pulse 98 04/22/22 13:30 Resp 22 H 04/22/22 08:16 BP 130/85 04/22/22 13:30 Pulse Ox 93 04/22/22 13:30 O2 Del Method 04/22/22 08:16 O2 Flow Rate 30 04/20/22 08:55 FiO2 40 04/20/22 20:00 04/21/22 04/22/22 04/22/22 22:59 06:59 14:59 Intake Total 700 / 1200 1000 / 2200 500 / 500 Output Total 850 / 850 Balance 700 / 1200 150 / 1350 500 / 500 Physical Exam Const: COMMON NORMALS: patient oriented x3 Resp: COMMON NORMALS: clear to auscultation bilaterally AUSCULTATION: clear to auscultation bilaterally Cardio: COMMON NORMALS: regular rate, regular rhythm, S1 normal heart sound present, S2 normal heart sound present, No gallops present (Cardio), No murmurs present (Cardio), No rub (Cardio) and Peripheral pulses 2+ throughout RATE: regular rate RHYTHM: regular rhythm HEART SOUNDS: S1 normal heart sound present and S2 normal heart sound present PERIPHERAL PULSES: Peripheral pulses 2+ throughout GI: COMMON NORMALS: Normal to inspection, nondistended, normoactive bowel sounds present, Soft to palpation, non-tender, No hepatosplenomegaly present and no masses AUSCULTATION: Yes normoactive bowel sounds PALPATION: Yes Soft to palpation and Yes No hepatosplenomegaly present RECTAL EXAM: Yes deferred Extremity: COMMON NORMALS: no clubbing, cyanosis or edema and no pedal edema Neuro: COMMON NORMALS: patient oriented x3 Urinary Catheter Management: Delgado: Cath Placed During This Visit: yes Reason for Continuing Indwelling Catheter: Accurate Measurement of Urinary Output in Critically Ill Patients Urinary Catheter Date of Insertion: 04/16/22 Urinary Catheter Time of Insertion: 16:00 Data 04/22/22 01:51 04/22/22 01:51 A&P Assessment and plan (1) Acute respiratory failure with hypoxia: (2) Acute encephalopathy: (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, AIDP Currently in the ICU due to rapid deterioration, concerns for respiratory compromise Proximal muscle weakness with numbness and tingling, and weakness Recent sinus infection CT head CTA head and neck unremarkable CSF is showing protein 70, normal white blood cell count Gram stain and culture so far unremarkable Blood cultures negative so far Head MRI no acute findings Neck MRI no acute findings Has received 1 dose of Decadron Started on IVIG day 5 of 5 B12 deficiency B12 replacement, thiamine, multivitamin Continue doxycycline for possible tickborne illness although unlikely Prophylaxis Lovenox Speech therapy eval PT OT Patient is showing autonomic dysfunction with hypertension Monitor reflexes, today he has good reflexes bilateral lower and upper extremities, equal strength bilateral upper extremities, equal sensation kathy ateral upper and lower extremity Check tick panel, Lyme panel, ganglioside antibodies Fall precautions Continue pulse ox Monitor respiratory status closely Monitor neurologic symptoms, monitor reflexes PT evaluation in the morning Overall he is clinically getting better in terms of his strength his reflexes, and sensation Acute hypoxic respiratory failure -Likely secondary to pneumonia -Certainly could be from the 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 however his reflexes in bilateral extremities and upper extremity strength have all returned back to normal -Does not look fluid overloaded but that certainly a possibility we will consider Lasix however for now we will hold given elevated serum sodium -Other thought is given his encephalopathy, likely aspiration started on Zosyn -CT angiogram was negative lobar pneumonia, or pulmonary embolism, but did show consolidation right middle and bilateral lower lobes, likely pneumonia, continue Zosyn -Cardiac echocardiogram has also been pending, BMP slightly elevated -Currently he is doing well on heated high flow, will de-escalate -Consider BiPAP, Reglan, Zofran, promethazine for nausea -I spoke with family, his respiratory state has improved, will continue to monitor, agreeable to elective intubation if required -If his respiratory status continues to decline then we will have to consider elective intubation patient and family wishall questions and agreed to proceed Acute encephalopathy, currently alert oriented x3 -Likely secondary to to hypoxia, polypharmacy, -CT of the head negative for cerebral edema Severe anxiety -Continue Seroquel 50 twice daily -Ativan 1 mg every 4 hours as needed for anxiety -On Precedex drip -Monitor mentation closely, aspiration precautions, neurochecks Hypertensive urgency might be from autonomic dysfunction from AIDP, blood pressure improving, Hyponatremia likely secondary to IVIG -Serum sodium improved to 1-8 -Nephrology consult -Off hypertonic saline I was called by the lab as patient's CSF studies was positive for coagulase positive staphylococci, this is likely contamination given his ESF studies -However for now we will start vancomycin follow CSF cultures, if negative by tomorrow likely contamination stop vancomycin Disposition: Patient is awaiting placement to rehab. Full code Lovenox for DVT prophylaxis Patient is from [facility] Medical Necessity Statement*: Needs to be in hospital for management of AIDP. 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
[2022-04-23] VITALS (35 sets, daily range): BP systolic 115–169; BP diastolic 67–100; PULSE 70–99; RESP 17–28; TEMP 36–37.9; O2SAT 90–95
[2022-04-23] MEDS: vancomycin 1,250 MG/250 ML PIGGYBACK 250 MG IV (01:47)
[2022-04-23] MEDS: enoxaparin 40 mg/0.4 mL Syringe SUBCUT (01:47)
[2022-04-23 03:15] LABS: Basophils % 0.4 %; Eosinophils % 0.3 %; Hematocrit 39.9 % (42.0-52.0); Hemoglobin 13.5 g/dL (11.7-16.6); Lymphocytes # 1.7 10^3/uL (0.8-4.8); Lymphocytes % 15.5 %; Mean Corpuscular HGB Conc 33.8 g/dL (30.0-36.0); Mean Corpuscular Hemoglobin 31.2 pg (28.0-34.0); Mean Corpuscular Volume 92.1 fl (80-94); Mean Platelet Volume 9.2 fL (7.4-10.4); Monocytes # 1.4 10^3/uL (0.2-0.9); Monocytes % 12.8 %; Neutrophils # 7.53 10^3/uL (1.8-7.7); Neutrophils % 70.6 %; Nucleated Red Blood Cells % 0 %; Platelet Count 257 10^3/cmm (130-400); Red Blood Count 4.33 10^6/uL (4.1-5.3); Red Cell Distribution Width 12.8 % (12.1-15.1); White Blood Count 10.7 10^3/uL (4.0-10.0)
[2022-04-23 03:40] LABS: Alanine Aminotransferase 37 U/L (0-41); Alkaline Phosphatase 83 U/L (40-130); Anion Gap 12.6 (5-19); Aspartate Amino Transferase 33 U/L (0-40); Blood Urea Nitrogen 25 mg/dL (8-23); Calcium 9.3 mg/dL (8.5-10.5); Carbon Dioxide 22 mmol/L (22-29); Chloride 104 mmol/L (98-107); Globulin 4.7 g/dL (1.3-4.6); Glucose 116 mg/dL (65-115); Osmolality Calculated 285 mOsm/kg (285-295); Potassium 3.6 mmol/L (3.5-5.1); Sodium 135 mmol/L (136-145); Total Bilirubin 0.4 mg/dL (0.15-1.2); Total Protein 7.7 g/dL (6.6-8.7)
[2022-04-23] MEDS: hyDRALAzine 25 mg Tablet PO ×3 (05:12→18:20)
--- NOTE | 2022-04-23 06:55 | PC.NURSE ---
Bedside report completed with ALAN Zaldivar
[2022-04-23] MEDS: budesonide 0.5 mg/2 mL Neb INHALATION ×2 (07:43→20:37)
[2022-04-23] MEDS: ipratropium-albuterol 3 mL Neb INHALATION ×2 (07:43→20:37)
--- NOTE | 2022-04-23 08:00 | PC.NURSE ---
Pt up to BSC, maximum assist and gait belt used. Flatulence noted only.
[2022-04-23] MEDS: lidocaine 5% Patch 1 PATCH TOPICAL ×2 (10:11→20:21)
--- NOTE | 2022-04-23 10:15 | PC.NURSE ---
MAR delay related to care of other patient.
[2022-04-23] MEDS: docusate sodium 100 mg Capsule PO ×2 (10:16→18:20)
[2022-04-23] MEDS: quetiapine 25 mg Tablet 50 MG PO ×2 (10:16→18:20)
[2022-04-23] MEDS: amlodipine 10 mg Tablet 5 MG PO (10:17)
[2022-04-23] MEDS: allopurinol 100 mg Tablet PO (10:17)
[2022-04-23] MEDS: colchicine 0.6 mg Tablet 0.3 MG PO (10:17)
[2022-04-23] MEDS: polyethylene glycol 3350 Pkt 17 gm PO (10:18)
[2022-04-23] MEDS: cloNIDine 0.1 mg Tablet PO ×3 (10:18→20:13)
[2022-04-23] MEDS: cyanocobalamin 1,000 mcg/mL SDV 1000 MCG IM (10:19)
--- NOTE | 2022-04-23 10:20 | PC.NURSE ---
Pt complaining of knee pain. Lidocaine patch placed on right knee. Ice packs applied bilat at pt's request.
--- NOTE | 2022-04-23 10:48 | PC.CHAP ---
Pastoral Care Encounter/Spiritual Assessment Type of Contact [] Declined pets salesperson visit [] Patient/Family/Request visit [] Outpatient visit [] Follow-up visit [] Physician referral [] Code/Alert [x] Routine visit [] Staff referral [] Actively dying [] Patient sleeping [x] Family support [] [] Out of room [] Palliative care [] [] Receiving care in room [] Pre-surgical visit [] Trauma [] Long length of stay [x] ICU visit [x] Other: family continues to pray for healing and strength Relational/Emotional Strength [] Patient feels connected with others/family/visitors/staff [] Distress [] Loneliness/isolation [] Abandonment Spirituality of Patient [] Person of Mira [] Attends Mandaeism of their Mira [] Believes in Prayer [] Reads Bible or Presybeterian materials [] There are Spiritual issues to be addressed Lead Atg Developer Interventions [x] Prayer [] Active listening [] Non-anxious presence [] Spiritual/emotional support [] Crisis/trauma care [] Spiritual counseling [] Bereavement support [] Provided bereavement packet [] Provided Bible/devotional materials [] Provided toy/stuffed animal, coloring book to patient or family member [] Provided Communion [] Anointing/Froid [] Salvation [x] Completed spiritual assessment [] Other: Impact on Illness or Injury [] Angry [] Fearful [] Anxious [] Often cries [] Exhaustion [] Unable to work [] Unable to attend hinduism [] Unable to walk/stand [] Unable to read [] Unable to drive [] Unable to eat/drink [] Unable to sleep [] Unable to be with family [] Patient intubated [] Other: Summary Time spent with patient
[2022-04-23] MEDS: predniSONE 20 mg Tablet 40 MG PO (14:24)
--- NOTE | 2022-04-23 14:46 | PM.PN ---
Subjective Subjective: He is having a gouty attack Medications: Medication Review Details: Started on prednisone Vitals/I&O/Wt Last Vital Signs Temp 98.2 F 04/23/22 08:10 Pulse 86 04/23/22 11:30 Resp 17 04/23/22 11:30 BP 141/80 04/23/22 14:23 Pulse Ox 94 04/23/22 11:30 O2 Del Method 04/23/22 11:30 O2 Flow Rate 30 04/20/22 08:55 FiO2 40 04/20/22 20:00 04/22/22 04/23/22 04/23/22 22:59 06:59 14:59 Intake Total 350 / 1100 100 / 1200 400 / 400 Output Total 1150 / 1150 Balance -800 / -50 100 / 50 400 / 400 Physical Exam Narrative: He has bifacial weakness. His respiratory effort is grossly better. M NIF not possible because of his bifacial weakness. He has ankle jerks! Urinary Catheter Management: Delgado: Cath Placed During This Visit: yes Reason for Continuing Indwelling Catheter: Accurate Measurement of Urinary Output in Critically Ill Patients Urinary Catheter Date of Insertion: 04/16/22 Urinary Catheter Time of Insertion: 16:00 Data 04/23/22 02:04 04/23/22 02:04 A&P Assessment and plan (1) AIDP (acute inflammatory demyelinating polyneuropathy): I think he is turned the corner. His respiratory status is improved. His gout is a complication and prevents aggressive PT. I would consider indomethacin 50 mg 3 times a day to get him through his gouty attack rapidly but she cannot use prednisone with it of course. I asked his to keep in touch. I am away for a week but please call me if there are any questions I will be reachable by cell. Transfer to rehab as soon as possible. 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
--- NOTE | 2022-04-23 15:03 | P.PN_ITS ---
Subjective Subjective: Patient is complaining of rt knee pain, possible gout flare, will start him on prednisone 40 mg po daily for 5 days. Medications: Reviewed: Yes Medication Review Details: Generic Name Dose Route Start Last Admin Trade Name Freq PRN Reason Stop Dose Admin Acetaminophen 500 mg 04/16/22 02:09 04/21/22 21:58 Acetaminophen 50 0 Mg Tablet PO 500 mg Q4H PRN Administration fever Albuterol/Ipratrop ium 3 ml 04/16/22 02:09 04/23/22 07:43 Ipratropium-Albu terol 3 Ml Neb INHALATION 3 ml Q6H PRN Administration SHORTNESS OF ERICK TH Allopurinol 100 mg 04/22/22 09:00 04/23/22 10:17 Allopurinol 100 Mg Tablet PO 100 mg DAILY BHANU Administration Amlodipine Besylat e 5 mg 04/19/22 08:00 04/23/22 10:17 Amlodipine 10 Mg Tablet PO 5 mg Q24H BHANU Administration Artificial Tears 1 drop 04/20/22 20:37 04/20/22 22:21 Artificial Tears Op Soln 15 Ml Btl EYE-BOTH 1 drop Q4H PRN Administration DRY EYE(S) Artificial Tears 1 applic 04/20/22 20:38 04/20/22 22:22 Artificial Tears Op Oint 3.5 Gm EYE-BOTH 1 applic BEDTIME PRN Administration AGITATION Budesonide 0.5 mg 04/18/22 20:00 04/23/22 07:43 Budesonide 0.5 M g/2 Ml Neb INHALATION 0.5 mg BID.RESPIRATORY S CH Administration Clonidine HCl 0.1 mg 04/20/22 09:00 04/23/22 14:23 Clonidine 0.1 Mg Tablet PO 0.1 mg TID BHANU Administration Colchicine 0.3 mg 04/22/22 09:00 04/23/22 10:17 Colchicine 0.6 M g Tablet PO 0.3 mg DAILY BHANU Administration Cyanocobalamin 1,000 mcg 04/16/22 13:15 04/23/22 10:19 Cyanocobalamin 1 ,000 Mcg/Ml Sdv IM 1,000 mcg DAILY BHANU Administration Diphenhydramine HC l 25 mg 04/16/22 14:18 04/18/22 05:03 Diphenhydramine 50 Mg/Ml Sdv 1ml IVP 25 mg Q4H PRN Administration ITCHING Docusate Sodium 100 mg 04/19/22 09:00 04/23/22 10:16 Docusate Sodium 100 Mg Capsule PO 100 mg BID BHANU Administration Enoxaparin Sodium 40 mg 04/16/22 02:30 04/23/22 01:47 Enoxaparin 40 Mg /0.4 Ml Syringe SUBCUT 40 mg Q24H BHANU Administration Hydralazine HCl 10 mg 04/16/22 02:19 04/21/22 04:37 Hydralazine 20 M g/Ml Inj 1 Ml IVP 10 mg Q4H PRN Administration Blood pressure >1 80/100 Hydralazine HCl 25 mg 04/20/22 07:11 04/23/22 12:58 Hydralazine 25 M g Tablet PO 25 mg Q6H BHANU Administration Lidocaine 1 patch 04/17/22 02:40 04/23/22 10:11 Lidocaine 5% Pat ch TOPICAL 1 patch [id number] BHANU Administration Ondansetron HCl 4 mg 04/18/22 07:32 04/18/22 07:41 Ondansetron 2 Mg /Ml Sdv 2 Ml IVP 4 mg Q4H PRN Administration NAUSEA AND VOMITI NG Polyethylene Glyco l 17 gm 04/19/22 09:00 04/23/22 10:18 Polyethylene Gly col 3350 Pkt 17 Gm PO 17 gm DAILY BHANU Administration Prednisone 40 mg 04/23/22 14:05 04/23/22 14:24 Prednisone 20 Mg Tablet PO 04/27/22 09:01 40 mg DAILY BHANU Administration Quetiapine Fumarat e 50 mg 04/18/22 09:00 04/23/22 10:16 Quetiapine 25 Mg Tablet PO 50 mg BID BHANU Administration Sodium Chloride 1 spray 04/16/22 20:46 04/16/22 21:40 Saline Nasal Spr ay 44ml Btl NASAL 1 spray PRN PRN Administration DRYNESS Thiamine HCl 100 mg 04/16/22 14:18 04/23/22 10:18 Thiamine 100 Mg/ Ml Sdv IM 100 mg DAILY BHANU Administration Vitals/I&O/Wt Last Vital Signs Temp 98.2 F 04/23/22 08:10 Pulse 89 04/23/22 14:30 Resp 17 04/23/22 14:30 BP 141/80 04/23/22 14:30 Pulse Ox 94 04/23/22 14:30 O2 Del Method 04/23/22 13:30 O2 Flow Rate 30 04/20/22 08:55 FiO2 40 04/20/22 20:00 04/23/22 04/23/22 04/23/22 06:59 14:59 22:59 Intake Total 100 / 1200 600 / 600 Balance 100 / 50 600 / 600 Physical Exam Const: COMMON NORMALS: patient oriented x3 Resp: COMMON NORMALS: clear to auscultation bilaterally AUSCULTATION: clear to auscultation bilaterally Cardio: COMMON NORMALS: regular rate, regular rhythm, S1 normal heart sound present, S2 normal heart sound present, No gallops present (Cardio), No murmurs present (Cardio), No rub (Cardio) and Peripheral pulses 2+ throughout RATE: regular rate RHYTHM: regular rhythm HEART SOUNDS: S1 normal heart sound present and S2 normal heart sound present PERIPHERAL PULSES: Peripheral pulses 2+ throughout GI: COMMON NORMALS: Normal to inspection, nondistended, normoactive bowel sounds present, Soft to palpation, non-tender, No hepatosplenomegaly present and no masses AUSCULTATION: Yes normoactive bowel sounds PALPATION: Yes Soft to palpation and Yes No hepatosplenomegaly present RECTAL EXAM: Yes deferred Extremity: COMMON NORMALS: no clubbing, cyanosis or edema and no pedal edema Neuro: COMMON NORMALS: patient oriented x3 Urinary Catheter Management: Delgado: Cath Placed During This Visit: yes Reason for Continuing Indwelling Catheter: Accurate Measurement of Urinary Output in Critically Ill Patients Urinary Catheter Date of Insertion: 04/16/22 Urinary Catheter Time of Insertion: 16:00 Data 04/23/22 02:04 04/23/22 02:04 A&P Assessment and plan (1) Acute respiratory failure with hypoxia: (2) Acute encephalopathy: (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, AIDP Currently in the ICU due to rapid deterioration, concerns for respiratory compromise Proximal muscle weakness with numbness and tingling, and weakness Recent sinus infection CT head CTA head and neck unremarkable CSF is showing protein 70, normal white blood cell count Gram stain and culture so far unremarkable Blood cultures negative so far Head MRI no acute findings Neck MRI no acute findings Has received 1 dose of Decadron Started on IVIG day 5 of 5 B12 deficiency B12 replacement, thiamine, multivitamin Continue doxycycline for possible tickborne illness although unlikely Prophylaxis Lovenox Speech therapy eval PT OT Patient is showing autonomic dysfunction with hypertension Monitor reflexes, today he has good reflexes bilateral lower and upper e xtremities, equal strength bilateral upper extremities, equal sensation bilateral upper and lower extremity Check tick panel, Lyme panel, ganglioside antibodies Fall precautions Continue pulse ox Monitor respiratory status closely Monitor neurologic symptoms, monitor reflexes PT evaluation in the morning Overall he is clinically getting better in terms of his strength his reflexes, and sensation Acute hypoxic respiratory failure -Likely secondary to pneumonia -Certainly could be from the 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 however his reflexes in bilateral extremities and upper extremity strength have all returned back to normal -Does not look fluid overloaded but that certainly a possibility we will consider Lasix however for now we will hold given elevated serum sodium -Other thought is given his encephalopathy, likely aspiration started on Zosyn -CT angiogram was negative lobar pneumonia, or pulmonary embolism, but did show consolidation right middle and bilateral lower lobes, likely pneumonia, continue Zosyn -Cardiac echocardiogram has also been pending, BMP slightly elevated -Currently he is doing well on heated high flow, will de-escalate -Consider BiPAP, Reglan, Zofran, promethazine for nausea -I spoke with family, his respiratory state has improved, will continue to monitor, agreeable to elective intubation if required -If his respiratory status continues to decline then we will have to consider elective intubation patient and family wishall questions and agreed to proceed Acute encephalopathy, currently alert oriented x3 -Likely secondary to to hypoxia, polypharmacy, -CT of the head negative for cerebral edema Severe anxiety -Continue Seroquel 50 twice daily -Ativan 1 mg every 4 hours as needed for anxiety -On Precedex drip -Monitor mentation closely, aspiration precautions, neurochecks Hypertensive urgency might be from autonomic dysfunction from AIDP, blood pressu re improving, Hyponatremia likely secondary to IVIG -Serum sodium improved to 1-8 -Nephrology consult -Off hypertonic saline I was called by the lab as patient's CSF studies was positive for coagulase positive staphylococci, this is likely contamination given his ESF studies -However for now we will start vancomycin follow CSF cultures, if negative by tomorrow likely contamination stop vancomycin Disposition: Patient is awaiting placement to rehab. Full code Lovenox for DVT prophylaxis Patient is from [facility] Necessity Statement*: awaiting placement. 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
[2022-04-23] MEDS: acetaminophen 500 mg Tablet PO (18:19)
--- NOTE | 2022-04-23 18:27 | PC.NURSE ---
Shift Note: Pt rested in bed except for the one time up to BSC. His gout is flaring up in his knees, palmira the right. It was Maximum assist plus gait belt to get him to BSC. Ice packs provided for his knees for comfort. Steriods started for comfort for the gout. His is at bedside very attentive throughout the day assisting pt with meds and food. VSS. His temp orally was WNL, within the same 5 minutes his axillary temp over 100 degrees F. Lungs remains clear. Urine output over 1000ml, light raf urine this shift. While on BSC, only flatus noted. Frequent safety and comfort rounds continue. Orders and/or nursing care completed as indicated. Patient monitored for response to intervention and treatment(s). Education provided includes Prednisone, docusate, seroquel, plan of care and progress. Patient and/or traffic workforce representative verbalized understanding of palnof care, progress and medications discussed.. Will continue to monitor.
--- NOTE | 2022-04-23 19:03 | PC.NURSE ---
Bedside report completed with ALAN Leary
[2022-04-23 19:30] LABS: Myelin AB IGM Western Blot NEGATIVE (NEGATIVE)
[2022-04-24] VITALS (16 sets, daily range): BP systolic 95–154; BP diastolic 41–106; PULSE 61–81; RESP 17–20; TEMP 36.1–36.6; O2SAT 92–96
[2022-04-24] MEDS: enoxaparin 40 mg/0.4 mL Syringe SUBCUT (01:16)
[2022-04-24] MEDS: hyDRALAzine 25 mg Tablet PO ×3 (01:16→15:36)
[2022-04-24] MEDS: budesonide 0.5 mg/2 mL Neb INHALATION ×2 (07:49→19:33)
[2022-04-24] MEDS: amlodipine 10 mg Tablet 5 MG PO (08:08)
[2022-04-24] MEDS: allopurinol 100 mg Tablet PO (09:56)
[2022-04-24] MEDS: colchicine 0.6 mg Tablet 0.3 MG PO (09:56)
[2022-04-24] MEDS: lidocaine 5% Patch 1 PATCH TOPICAL (09:57)
[2022-04-24] MEDS: docusate sodium 100 mg Capsule PO ×2 (09:57→17:53)
[2022-04-24] MEDS: cloNIDine 0.1 mg Tablet PO ×2 (09:57→16:29)
[2022-04-24] MEDS: cyanocobalamin 1,000 mcg/mL SDV 1000 MCG IM (09:57)
[2022-04-24] MEDS: polyethylene glycol 3350 Pkt 17 gm PO (09:58)
[2022-04-24] MEDS: predniSONE 20 mg Tablet 40 MG PO (09:58)
--- NOTE | 2022-04-24 11:34 | PC.OT ---
OT tx attempted - Patient asleep at time of contact, will attempt again later this day.
--- NOTE | 2022-04-24 14:14 | PM.PN ---
Subjective Subjective: Right knee pain is better, slowly improving muscle strength, though still has significant weakness on the left side, working with physical therapy. Medications: Reviewed: Yes Medication Review Details: Generic Name Dose Route Start Last Admin Trade Name Freq PRN Reason Stop Dose Admin Acetaminophen 500 mg 04/16/22 02:09 04/23/22 18:19 Acetaminophen 50 0 Mg Tablet PO 500 mg Q4H PRN Administration fever Albuterol/Ipratrop ium 3 ml 04/16/22 02:09 04/23/22 20:37 Ipratropium-Albu terol 3 Ml Neb INHALATION 3 ml Q6H PRN Administration SHORTNESS OF ERICK TH Allopurinol 100 mg 04/22/22 09:00 04/24/22 09:56 Allopurinol 100 Mg Tablet PO 100 mg DAILY BHANU Administration Amlodipine Besylat e 5 mg 04/19/22 08:00 04/24/22 08:08 Amlodipine 10 Mg Tablet PO 5 mg Q24H BHANU Administration Artificial Tears 1 drop 04/20/22 20:37 04/20/22 22:21 Artificial Tears Op Soln 15 Ml Btl EYE-BOTH 1 drop Q4H PRN Administration DRY EYE(S) Artificial Tears 1 applic 04/20/22 20:38 04/20/22 22:22 Artificial Tears Op Oint 3.5 Gm EYE-BOTH 1 applic BEDTIME PRN Administration AGITATION Budesonide 0.5 mg 04/18/22 20:00 04/24/22 07:49 Budesonide 0.5 M g/2 Ml Neb INHALATION 0.5 mg BID.RESPIRATORY S CH Administration Clonidine HCl 0.1 mg 04/20/22 09:00 04/24/22 09:57 Clonidine 0.1 Mg Tablet PO 0.1 mg TID BHANU Administration Colchicine 0.3 mg 04/22/22 09:00 04/24/22 09:56 Colchicine 0.6 M g Tablet PO 0.3 mg DAILY BHANU Administration Cyanocobalamin 1,000 mcg 04/16/22 13:15 04/24/22 09:57 Cyanocobalamin 1 ,000 Mcg/Ml Sdv IM 1,000 mcg DAILY BHANU Administration Diphenhydramine HC l 25 mg 04/16/22 14:18 04/18/22 05:03 Diphenhydramine 50 Mg/Ml Sdv 1ml IVP 25 mg Q4H PRN Administration ITCHING Docusate Sodium 100 mg 04/19/22 09:00 04/24/22 09:57 Docusate Sodium 100 Mg Capsule PO 100 mg BID BHANU Administration Enoxaparin Sodium 40 mg 04/16/22 02:30 04/24/22 01:16 Enoxaparin 40 Mg /0.4 Ml Syringe SUBCUT 40 mg Q24H BHANU Administration Hydralazine HCl 10 mg 04/16/22 02:19 04/21/22 04:37 Hydralazine 20 M g/Ml Inj 1 Ml IVP 10 mg Q4H PRN Administration Blood pressure >1 80/100 Hydralazine HCl 25 mg 04/20/22 07:11 04/24/22 08:08 Hydralazine 25 M g Tablet PO 25 mg Q6H BHANU Administration Lidocaine 1 patch 04/17/22 02:40 04/24/22 09:57 Lidocaine 5% Pat ch TOPICAL 1 patch [id number] BHANU Administration Ondansetron HCl 4 mg 04/18/22 07:32 04/18/22 07:41 Ondansetron 2 Mg /Ml Sdv 2 Ml IVP 4 mg Q4H PRN Administration NAUSEA AND VOMITI NG Polyethylene Glyco l 17 gm 04/19/22 09:00 04/24/22 09:58 Polyethylene Gly col 3350 Pkt 17 Gm PO 17 gm DAILY BHANU Administration Prednisone 40 mg 04/23/22 14:05 04/24/22 09:58 Prednisone 20 Mg Tablet PO 04/27/22 09:01 40 mg DAILY BHANU Administration Quetiapine Fumarat e 50 mg 04/18/22 09:00 04/24/22 10:19 Quetiapine 25 Mg Tablet PO Not Given BID BHANU Sodium Chloride 1 spray 04/16/22 20:46 04/16/22 21:40 Saline Nasal Spr ay 44ml Btl NASAL 1 spray PRN PRN Administration DRYNESS Thiamine HCl 100 mg 04/16/22 14:18 04/24/22 09:58 Thiamine 100 Mg/ Ml Sdv IM 100 mg DAILY BHANU Administration Vitals/I&O/Wt Last Vital Signs Temp 97.8 F 04/24/22 12:00 Pulse 76 04/24/22 12:00 Resp 18 04/24/22 12:00 BP 145/69 04/24/22 12:00 Pulse Ox 92 04/24/22 07:53 O2 Del Method 04/24/22 07:53 O2 Flow Rate 30 04/20/22 08:55 FiO2 40 04/24/22 12:00 04/23/22 04/24/22 04/24/22 22:59 06:59 14:59 Intake Total 300 / 900 480 / 480 Output Total 1350 / 1350 850 / 2200 Balance -1050 / -450 -850 / -1300 480 / 480 Physical Exam Const: COMMON NORMALS: patient oriented x3 Resp: COMMON NORMALS: clear to auscultation bilaterally AUSCULTATION: clear to auscultation bilaterally Cardio: COMMON NORMALS: regular rate, regular rhythm, S1 normal heart sound present, S2 normal heart sound present, No gallops present (Cardio), No murmurs present (Cardio), No rub (Cardio) and Peripheral pulses 2+ throughout RATE: regular rate RHYTHM: regular rhythm HEART SOUNDS: S1 normal heart sound present and S2 normal heart sound present PERIPHERAL PULSES: Peripheral pulses 2+ throughout GI: COMMON NORMALS: Normal to inspection, nondistended, normoactive bowel sounds present, Soft to palpation, non-tender, No hepatosplenomegaly present and no masses AUSCULTATION: Yes normoactive bowel sounds PALPATION: Yes Soft to palpation and Yes No hepatosplenomegaly present RECTAL EXAM: Yes deferred Extremity: COMMON NORMALS: no clubbing, cyanosis or edema and no pedal edema Neuro: COMMON NORMALS: patient oriented x3 Urinary Catheter Management: Delgado: Cath Placed During This Visit: yes Reason for Continuing Indwelling Catheter: Accurate Measurement of Urinary Output in Critically Ill Patients Urinary Catheter Date of Insertion: 04/16/22 Urinary Catheter Time of Insertion: 16:00 Data 04/23/22 02:04 04/23/22 02:04 A&P Assessment and plan (1) Acute respiratory failure with hypoxia: (2) Acute encephalopathy: (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, AIDP Currently in the ICU due to rapid deterioration, concerns for respiratory compromise Proximal muscle weakness with numbness and tingling, and weakness Recent sinus infection CT head CTA head and neck unremarkable CSF is showing protein 70, normal white blood cell count Gram stain and culture so far unremarkable Blood cultures negative so far Head MRI no acute findings Neck MRI no acute findings Has received 1 dose of Decadron Started on IVIG day 5 of 5 B12 deficiency B12 replacement, thiamine, multivitamin Continue doxycycline for possible tickborne illness although unlikely Prophylaxis Lovenox Speech therapy eval PT OT Patient is showing autonomic dysfunction with hypertension Monitor reflexes, today he has good reflexes bilateral lower and upper extremities, equal strength bilateral upper extremities, equal sensation bilateral upper and lower extremity Check tick panel, Lyme panel, ganglioside antibodies Fall precautions Continue pulse ox Monitor respiratory status closely Monitor neurologic symptoms, monitor reflexes PT evaluation in the morning Overall he is clinically getting better in terms of his strength his reflexes, and sensation Acute hypoxic respiratory failure -Likely secondary to pneumonia -Certainly could be from the 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 however his reflexes in bilateral extremities and upper extremity strength have all returned back to normal -Does not look fluid overloaded but that certainly a possibility we will consider Lasix however for now we will hold given elevated serum sodium -Other thought is given his encephalopathy, likely aspiration started on Zosyn -CT angiogram was negative lobar pneumonia, or pulmonary embolism, but did show consolidation right middle and bilateral lower lobes, likely pneumonia, continue Zosyn -Cardiac echocardiogram has also been pending, BMP slightly elevated -Currently he is doing well on heated high flow, will de-escalate -Consider BiPAP, Reglan, Zofran, promethazine for nausea -I spoke with family, his respiratory state has improved, will continue to monitor, agreeable to elective intubation if required -If his respiratory status continues to decline then we will have to consider elective intubation patient and family wishall questions and agreed to proceed Acute encephalopathy, currently alert oriented x3 -Likely secondary to to hypoxia, polypharmacy, -CT of the head negative for cerebral edema Severe anxiety -Continue Seroquel 50 twice daily -Ativan 1 mg every 4 hours as needed for anxiety -On Precedex drip -Monitor mentation closely, aspiration precautions, neurochecks Hypertensive urgency might be from autonomic dysfunction from AIDP, blood pressure improving, Hyponatremia likely secondary to IVIG -Serum sodium improved to 1-8 -Nephrology consult -Off hypertonic saline I was called by the lab as patient's CSF studies was positive for coagulase positive staphylococci, this is likely contamination given his ESF studies -However for now we will start vancomycin follow CSF cultures, if negative by tomorrow likely contamination stop vancomycin Disposition: Patient is awaiting placement to rehab. Full code Lovenox for DVT prophylaxis Patient is from [facility] Medical Necessity Statement*: Awaiting placement to rehab. 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
[2022-04-24 21:20] LABS: Ganglioside GD1b Antibody IgG <1:100 titer (<1:100)
--- NOTE | 2022-04-24 21:25 | PC.NURSE ---
Hospitalist notified that hydralazine and clonidine held due to lower BP. BP readigs since 1900 hourly are 117/57. 95/41. 86/46.110/65.
[2022-04-24 21:36] LABS: Ganglioside GD1b Antibody IgM <1:800 titer (< OR = 1:800)
[2022-04-25] VITALS (22 sets, daily range): BP systolic 115–152; BP diastolic 64–92; PULSE 57–82; RESP 13–25; TEMP 36.2–37; O2SAT 91–97
[2022-04-25] MEDS: hyDRALAzine 25 mg Tablet PO ×3 (03:12→21:54)
[2022-04-25] MEDS: enoxaparin 40 mg/0.4 mL Syringe SUBCUT (03:12)
[2022-04-25] MEDS: polyethylene glycol 3350 Pkt 17 gm PO (08:26)
[2022-04-25] MEDS: colchicine 0.6 mg Tablet 0.3 MG PO (08:26)
[2022-04-25] MEDS: amlodipine 10 mg Tablet 5 MG PO (08:28)
[2022-04-25] MEDS: predniSONE 20 mg Tablet 40 MG PO (08:29)
[2022-04-25] MEDS: allopurinol 100 mg Tablet PO (08:29)
[2022-04-25] MEDS: cloNIDine 0.1 mg Tablet PO ×3 (08:30→21:54)
[2022-04-25] MEDS: docusate sodium 100 mg Capsule PO ×2 (08:30→18:25)
[2022-04-25] MEDS: cyanocobalamin 1,000 mcg/mL SDV 1000 MCG IM (08:31)
[2022-04-25] MEDS: lidocaine 5% Patch 1 PATCH TOPICAL ×2 (08:32→21:45)
[2022-04-25] MEDS: budesonide 0.5 mg/2 mL Neb INHALATION ×2 (10:00→21:02)
--- NOTE | 2022-04-25 13:28 | PC.NURSE ---
Patient transferred to [facility] at approximately 1315
--- NOTE | 2022-04-25 14:01 | PC.PT ---
Patient refused AM due to coldness of room and lack of heaters. He agreed to do therapy upon admission to [facility] but reports that he will not do it if the room is too cold. Patient asked therapy to do check in the afternoon.
--- NOTE | 2022-04-25 15:21 | PC.NURSE ---
1320 Patient recieved from ICU to room 267, patient accompained per and daughter. Patient is awake and alert vs and assessment completed see flow sheets for info. patient offering no complaints, PT at bedside and working with patient.
--- NOTE | 2022-04-25 16:44 | PM.PN ---
Subjective Subjective: Right knee pain is better. Medications: Reviewed: Yes Medication Review Details: Generic Name Dose Route Start Last Admin Trade Name Freq PRN Reason Stop Dose Admin Acetaminophen 500 mg 04/16/22 02:09 04/23/22 18:19 Acetaminophen 50 0 Mg Tablet PO 500 mg Q4H PRN Administration fever Albuterol/Ipratrop ium 3 ml 04/16/22 02:09 04/23/22 20:37 Ipratropium-Albu terol 3 Ml Neb INHALATION 3 ml Q6H PRN Administration SHORTNESS OF ERICK TH Allopurinol 100 mg 04/22/22 09:00 04/25/22 08:29 Allopurinol 100 Mg Tablet PO 100 mg DAILY BHANU Administration Amlodipine Besylat e 5 mg 04/19/22 08:00 04/25/22 08:28 Amlodipine 10 Mg Tablet PO 5 mg Q24H BHANU Administration Artificial Tears 1 drop 04/20/22 20:37 04/20/22 22:21 Artificial Tears Op Soln 15 Ml Btl EYE-BOTH 1 drop Q4H PRN Administration DRY EYE(S) Artificial Tears 1 applic 04/20/22 20:38 04/20/22 22:22 Artificial Tears Op Oint 3.5 Gm EYE-BOTH 1 applic BEDTIME PRN Administration AGITATION Budesonide 0.5 mg 04/18/22 20:00 04/25/22 10:00 Budesonide 0.5 M g/2 Ml Neb INHALATION 0.5 mg BID.RESPIRATORY S CH Administration Clonidine HCl 0.1 mg 04/20/22 09:00 04/25/22 08:30 Clonidine 0.1 Mg Tablet PO 0.1 mg TID BHANU Administration Colchicine 0.3 mg 04/22/22 09:00 04/25/22 08:26 Colchicine 0.6 M g Tablet PO 0.3 mg DAILY BHANU Administration Cyanocobalamin 1,000 mcg 04/16/22 13:15 04/25/22 08:31 Cyanocobalamin 1 ,000 Mcg/Ml Sdv IM 1,000 mcg DAILY BHANU Administration Diphenhydramine HC l 25 mg 04/16/22 14:18 04/18/22 05:03 Diphenhydramine 50 Mg/Ml Sdv 1ml IVP 25 mg Q4H PRN Administration ITCHING Docusate Sodium 100 mg 04/19/22 09:00 04/25/22 08:30 Docusate Sodium 100 Mg Capsule PO 100 mg BID BHANU Administration Enoxaparin Sodium 40 mg 04/16/22 02:30 04/25/22 03:12 Enoxaparin 40 Mg /0.4 Ml Syringe SUBCUT 40 mg Q24H BHANU Administration Hydralazine HCl 10 mg 04/16/22 02:19 04/21/22 04:37 Hydralazine 20 M g/Ml Inj 1 Ml IVP 10 mg Q4H PRN Administration Blood pressure >1 80/100 Hydralazine HCl 25 mg 04/20/22 07:11 04/25/22 08:33 Hydralazine 25 M g Tablet PO Not Given Q6H BHANU Lidocaine 1 patch 04/17/22 02:40 04/25/22 08:32 Lidocaine 5% Pat ch TOPICAL 1 patch [id number] BHANU Administration Ondansetron HCl 4 mg 04/18/22 07:32 04/18/22 07:41 Ondansetron 2 Mg /Ml Sdv 2 Ml IVP 4 mg Q4H PRN Administration NAUSEA AND VOMITI NG Polyethylene Glyco l 17 gm 04/19/22 09:00 04/25/22 08:26 Polyethylene Gly col 3350 Pkt 17 Gm PO 17 gm DAILY BHANU Administration Prednisone 40 mg 04/23/22 14:05 04/25/22 08:29 Prednisone 20 Mg Tablet PO 04/27/22 09:01 40 mg DAILY BHANU Administration Quetiapine Fumarat e 50 mg 04/18/22 09:00 04/25/22 08:30 Quetiapine 25 Mg Tablet PO Not Given BID BHANU Sodium Chloride 1 spray 04/16/22 20:46 04/16/22 21:40 Saline Nasal Spr ay 44ml Btl NASAL 1 spray PRN PRN Administration DRYNESS Thiamine HCl 100 mg 04/16/22 14:18 04/25/22 08:31 Thiamine 100 Mg/ Ml Sdv IM 100 mg DAILY BHANU Administration Vitals/I&O/Wt Last Vital Signs Temp 98.0 F 04/25/22 15:23 Pulse 77 04/25/22 16:01 Resp 16 04/25/22 15:23 BP 152/92 04/25/22 15:23 Pulse Ox 96 04/25/22 15:23 O2 Del Method 04/25/22 15:23 O2 Flow Rate 30 04/20/22 08:55 FiO2 40 04/24/22 20:00 04/25/22 04/25/22 04/25/22 06:59 14:59 22:59 Intake Total 100 / 820 480 / 480 Output Total 1780 / 2930 1000 / 1000 Balance -1680 / -2110 -520 / -520 Physical Exam Const: COMMON NORMALS: patient oriented x3 Resp: COMMON NORMALS: clear to auscultation bilaterally AUSCULTATION: clear to auscultation bilaterally Cardio: COMMON NORMALS: regular rate, regular rhythm, S1 normal heart sound present, S2 normal heart sound present, No gallops present (Cardio), No murmurs present (Cardio), No rub (Cardio) and Peripheral pulses 2+ throughout RATE: regular rate RHYTHM: regular rhythm HEART SOUNDS: S1 normal heart sound present and S2 normal heart sound present PERIPHERAL PULSES: Peripheral pulses 2+ throughout GI: COMMON NORMALS: Normal to inspection, nondistended, normoactive bowel sounds present, Soft to palpation, non-tender, No hepatosplenomegaly present and no masses AUSCULTATION: Yes normoactive bowel sounds PALPATION: Yes Soft to palpation and Yes No hepatosplenomegaly present RECTAL EXAM: Yes deferred Extremity: COMMON NORMALS: no clubbing, cyanosis or edema and no pedal edema Neuro: COMMON NORMALS: patient oriented x3 Urinary Catheter Management: Delgado: Cath Placed During This Visit: yes Reason for Continuing Indwelling Catheter: Accurate Measurement of Urinary Output in Critically Ill Patients Urinary Catheter Date of Insertion: 04/16/22 Urinary Catheter Time of Insertion: 16:00 Data 04/23/22 02:04 04/23/22 02:04 A&P Assessment and plan (1) Acute respiratory failure with hypoxia: (2) Acute encephalopathy: (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, AIDP Currently in the ICU due to rapid deterioration, concerns for respiratory compromise Proximal muscle weakness with numbness and tingling, and weakness Recent sinus infection CT head CTA head and neck unremarkable CSF is showing protein 70, normal white blood cell count Gram stain and culture so far unremarkable Blood cultures negative so far Head MRI no acute findings Neck MRI no acute findings Has received 1 dose of Decadron Started on IVIG day 5 of 5 B12 deficiency B12 replacement, thiamine, multivitamin Continue doxycycline for possible tickborne illness although unlikely Prophylaxis Lovenox Speech therapy eval PT OT Patient is showing autonomic dysfunction with hypertension Monitor reflexes, today he has good reflexes bilateral lower and upper extremities, equal strength bilateral upper extremities, equal sensation bilateral upper and lower extremity Check tick panel, Lyme panel, ganglioside antibodies Fall precautions Continue pulse ox Monitor respiratory status closely Monitor neurologic symptoms, monitor reflexes PT evaluation in the morning Overall he is clinically getting better in terms of his strength his reflexes, and sensation Acute hypoxic respiratory failure -Likely secondary to pneumonia -Certainly could be from the 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 however his reflexes in bilateral extremities and upper extremity strength have all returned back to normal -Does not look fluid overloaded but that certainly a possibility we will consider Lasix however for now we will hold given elevated serum sodium -Other thought is given his encephalopathy, likely aspiration started on Zosyn -CT angiogram was negative lobar pneumonia, or pulmonary embolism, but did show consolidation right middle and bilateral lower lobes, likely pneumonia, continue Zosyn -Cardiac echocardiogram has also been pending, BMP slightly elevated -Currently he is doing well on heated high flow, will de-escalate -Consider BiPAP, Reglan, Zofran, promethazine for nausea -I spoke with family, his respiratory state has improved, will continue to monitor, agreeable to elective intubation if required -If his respiratory status continues to decline then we will have to consider elective intubation patient and family wishall questions and agreed to proceed Acute encephalopathy, currently alert oriented x3 -Likely secondary to to hypoxia, polypharmacy, -CT of the head negative for cerebral edema Severe anxiety -Continue Seroquel 50 twice daily -Ativan 1 mg every 4 hours as needed for anxiety -On Precedex drip -Monitor mentation closely, aspiration precautions, neurochecks Hypertensive urgency might be from autonomic dysfunction from AIDP, blood pressure improving, Hyponatremia likely secondary to IVIG -Serum sodium improved to 1-8 -Nephrology consult -Off hypertonic saline I was called by the lab as patient's CSF studies was positive for coagulase positive staphylococci, this is likely contamination given his ESF studies -However for now we will start vancomycin follow CSF cultures, if negative by tomorrow likely contamination stop vancomycin Disposition: Patient is awaiting placement to rehab. Full code Lovenox for DVT prophylaxis Patient is from [facility] Necessity Statement*: Awaiting placement for rehab. 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
[2022-04-25] MEDS: ipratropium-albuterol 3 mL Neb INHALATION (21:01)
[2022-04-26] VITALS (15 sets, daily range): BP systolic 116–143; BP diastolic 75–83; PULSE 56–90; RESP 16–18; TEMP 36.3–36.6; O2SAT 93–96
[2022-04-26] MEDS: enoxaparin 40 mg/0.4 mL Syringe SUBCUT (03:07)
[2022-04-26] MEDS: hyDRALAzine 25 mg Tablet PO ×3 (03:08→21:28)
[2022-04-26] MEDS: ondansetron 2 mg/ML SDV 2 mL 4 MG IVP (05:42)
[2022-04-26] MEDS: artificial tears Op Soln 15 mL Btl 1 DROP EYE-BOTH (06:46)
[2022-04-26] MEDS: polyethylene glycol 3350 Pkt 17 gm PO (09:06)
[2022-04-26] MEDS: cloNIDine 0.1 mg Tablet PO ×3 (09:06→21:28)
[2022-04-26] MEDS: predniSONE 20 mg Tablet 40 MG PO (09:07)
[2022-04-26] MEDS: allopurinol 100 mg Tablet PO (09:07)
[2022-04-26] MEDS: docusate sodium 100 mg Capsule PO ×2 (09:07→17:01)
[2022-04-26] MEDS: amlodipine 10 mg Tablet 5 MG PO (09:07)
[2022-04-26] MEDS: cyanocobalamin 1,000 mcg/mL SDV 1000 MCG IM (09:08)
[2022-04-26] MEDS: lidocaine 5% Patch 1 PATCH TOPICAL ×2 (11:32→21:29)
[2022-04-26] MEDS: colchicine 0.6 mg Tablet 0.3 MG PO (11:32)
[2022-04-26] MEDS: artificial tears Op Oint 3.5 gm 1 APPLIC EYE-BOTH (11:33)
--- NOTE | 2022-04-26 15:17 | P.PN_ITS ---
Subjective Subjective: Right knee pain is better. Medications: Reviewed: Yes Medication Review Details: Generic Name Dose Route Start Last Admin Trade Name Freq PRN Reason Stop Dose Admin Acetaminophen 500 mg 04/16/22 02:09 04/23/22 18:19 Acetaminophen 50 0 Mg Tablet PO 500 mg Q4H PRN Administration fever Albuterol/Ipratrop ium 3 ml 04/16/22 02:09 04/25/22 21:01 Ipratropium-Albu terol 3 Ml Neb INHALATION 3 ml Q6H PRN Administration SHORTNESS OF ERICK TH Allopurinol 100 mg 04/22/22 09:00 04/26/22 09:07 Allopurinol 100 Mg Tablet PO 100 mg DAILY BHANU Administration Amlodipine Besylat e 5 mg 04/19/22 08:00 04/26/22 09:07 Amlodipine 10 Mg Tablet PO 5 mg Q24H BHANU Administration Artificial Tears 1 drop 04/20/22 20:37 04/26/22 06:46 Artificial Tears Op Soln 15 Ml Btl EYE-BOTH 1 drop Q4H PRN Administration DRY EYE(S) Artificial Tears 1 applic 04/20/22 20:38 04/26/22 11:33 Artificial Tears Op Oint 3.5 Gm EYE-BOTH 1 applic BEDTIME PRN Administration AGITATION Budesonide 0.5 mg 04/18/22 20:00 04/26/22 09:34 Budesonide 0.5 M g/2 Ml Neb INHALATION Not Given BID.RESPIRATORY S CH Clonidine HCl 0.1 mg 04/20/22 09:00 04/26/22 09:06 Clonidine 0.1 Mg Tablet PO 0.1 mg TID BHANU Administration Colchicine 0.3 mg 04/22/22 09:00 04/26/22 11:32 Colchicine 0.6 M g Tablet PO 0.3 mg DAILY BHANU Administration Cyanocobalamin 1,000 mcg 04/16/22 13:15 04/26/22 09:08 Cyanocobalamin 1 ,000 Mcg/Ml Sdv IM 1,000 mcg DAILY BHANU Administration Diphenhydramine HC l 25 mg 04/16/22 14:18 04/18/22 05:03 Diphenhydramine 50 Mg/Ml Sdv 1ml IVP 25 mg Q4H PRN Administration ITCHING Docusate Sodium 100 mg 04/19/22 09:00 04/26/22 09:07 Docusate Sodium 100 Mg Capsule PO 100 mg BID BHANU Administration Enoxaparin Sodium 40 mg 04/16/22 02:30 04/26/22 03:07 Enoxaparin 40 Mg /0.4 Ml Syringe SUBCUT 40 mg Q24H BHANU Administration Hydralazine HCl 10 mg 04/16/22 02:19 04/21/22 04:37 Hydralazine 20 M g/Ml Inj 1 Ml IVP 10 mg Q4H PRN Administration Blood pressure >1 80/100 Hydralazine HCl 25 mg 04/26/22 14:00 04/26/22 14:28 Hydralazine 25 M g Tablet PO 25 mg TID BHANU Administration Lidocaine 1 patch 04/17/22 02:40 04/26/22 11:32 Lidocaine 5% Pat ch TOPICAL 1 patch [id number] BHANU Administration Ondansetron HCl 4 mg 04/18/22 07:32 04/26/22 05:42 Ondansetron 2 Mg /Ml Sdv 2 Ml IVP 4 mg Q4H PRN Administration NAUSEA AND VOMITI NG Polyethylene Glyco l 17 gm 04/19/22 09:00 04/26/22 09:06 Polyethylene Gly col 3350 Pkt 17 Gm PO 17 gm DAILY BHANU Administration Prednisone 40 mg 04/23/22 14:05 04/26/22 09:07 Prednisone 20 Mg Tablet PO 04/27/22 09:01 40 mg DAILY BHANU Administration Quetiapine Fumarat e 50 mg 04/18/22 09:00 04/26/22 09:30 Quetiapine 25 Mg Tablet PO Not Given BID BHANU Sodium Chloride 1 spray 04/16/22 20:46 04/16/22 21:40 Saline Nasal Spr ay 44ml Btl NASAL 1 spray PRN PRN Administration DRYNESS Thiamine HCl 100 mg 04/16/22 14:18 04/26/22 09:08 Thiamine 100 Mg/ Ml Sdv IM 100 mg DAILY BHANU Administration Vitals/I&O/Wt Last Vital Signs Temp 97.8 F 04/26/22 11:34 Pulse 77 04/26/22 14:28 Resp 16 04/26/22 11:34 BP 143/79 04/26/22 14:28 Pulse Ox 95 04/26/22 11:34 O2 Del Method 04/26/22 14:28 O2 Flow Rate 30 04/20/22 08:55 FiO2 40 04/24/22 20:00 04/26/22 04/26/22 04/26/22 06:59 14:59 22:59 Intake Total 240 / 240 Output Total 300 / 1700 Balance -300 / -860 240 / 240 Physical Exam Const: COMMON NORMALS: patient oriented x3 Resp: COMMON NORMALS: clear to auscultation bilaterally AUSCULTATION: clear to auscultation bilaterally Cardio: COMMON NORMALS: regular rate, regular rhythm, S1 normal heart sound present, S2 normal heart sound present, No gallops present (Cardio), No murmurs present (Cardio), No rub (Cardio) and Peripheral pulses 2+ throughout RATE: regular rate RHYTHM: regular rhythm HEART SOUNDS: S1 normal heart sound present and S2 normal heart sound present PERIPHERAL PULSES: Peripheral pulses 2+ throughout GI: COMMON NORMALS: Normal to inspection, nondistended, normoactive bowel sounds present, Soft to palpation, non-tender, No hepatosplenomegaly present and no masses AUSCULTATION: Yes normoactive bowel sounds PALPATION: Yes Soft to palpation and Yes No hepatosplenomegaly present RECTAL EXAM: Yes deferred Extremity: COMMON NORMALS: no clubbing, cyanosis or edema and no pedal edema Neuro: COMMON NORMALS: patient oriented x3 Urinary Catheter Management: Delgado: Cath Placed During This Visit: yes Reason for Continuing Indwelling Catheter: Other Urinary Catheter Date of Insertion: 04/16/22 Urinary Catheter Time of Insertion: 16:00 Data 04/23/22 02:04 04/23/22 02:04 A&P Assessment and plan (1) Acute respiratory failure with hypoxia: (2) Acute encephalopathy: (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: (4) Hyponatremia: (5) AIDP (acute inflammatory demyelinating polyneuropathy): (6) Unable to ambulate: (7) Dizziness: (8) Paresthesia of both hands: (9) Paresthesia of both feet: (10) Weakness of both lower extremities: (11) Bilateral arm weakness: (12) Respiratory abnormality: (13) Ataxia: (14) Vitamin B12 deficiency: (15) Hypertensive urgency: (16) Pneumonia: (17) Aspiration pneumonitis: (18) Gout flare: Plan 61-year-old male with past medical history of gout on colchicine and allopurinol, was visiting his daughter in [place] originally resident of [place] was brought in with chief complaint of not able to walk and dizziness, patient was diagnosed with COVID-19 pneumonia 4 weeks back, and then after he had also suffered sinus infection for which he took antibiotics, had dental procedure done 2 weeks before, for which she had received antibiotics for 3 to 4 days, on admission he was noted to have tingling and numbness, Subsequently he started quickly developing progressive ascending flaccid paralysis, predominantly proximal muscle weakness.During the hospital stay based on his clinical presentation, initial CSF analysis showing ACD, though not a very specific marker,Imaging studies, he was managed for 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 Patient completed 5-day course ofIVIG, during IVIG course: He also developed severe hyponatremia: Secondary to SIADH: For which renal was on board received hypertonic saline, salt tablets, BMP was monitored.Currently serum sodium has normalized. During the hospital stay patient had also managed for acute hypoxic respiratory failure: Possibly secondary to Respiratory muscle weakness: NIF was monitored, patient was kept on noninvasive positive pressure ventilation(BiPAP / heated high flow ) currently off noninvasive positive pressure ventilation, doing well on room air. CSF culture: Grew staph aureus: Low clinical suspicion for staph meningitis: Based on the overall clinical presentation: Patient was initially kept on vancomycin which was discontinued later. Currently patient still has extremity weakness more on left side, patient had also developed autonomic dysfunction during the hospital stay, he was having accelerated hypertension, currently on antihypertensive medication,tachycardia. Patient had also developed gout flare during the hospital stay: For which initially he was placed on Toradol, later he was started on prednisone 40 p.o. daily for 5 days, with improvement in symptoms. Patient also has severe B12 deficiency: Currently on thiamine replacement 100 mg IM daily. Patient will need long-term thiamine replacement. With interval monitoring of serum B12 level. Pertinent imaging studies done during the hospital stay includes. CT head without contrast: No acute intracranial pathology, CTA head and neck: No flow-limiting stenosis MRI brain without contrast: No acute finding, Neck MRI no acute findings.2D echo: Normal left ventricular size, systolic function and wallvthickness, with no regional wall motion abnormalities.Normal?left ventricular wall thickness. Grade I/IV diastolic ?dysfunction (abnormal relaxation filling pattern), normal to ?mildly elevated filling pressures. Blood culture negative, tick panel negative, respiratory viral panel negative,ganglioside antibodies: Pending Speech, PT OT has been on board, patient is slowly improving. CODE STATUS: Full code DVT prophylaxis: On Lovenox Disposition: Patient is awaiting placement to rehab. Attestations Medical Necessity Statement*: Patient is awaiting placement to rehab. 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
[2022-04-27] VITALS (15 sets, daily range): BP systolic 109–155; BP diastolic 76–92; PULSE 60–92; RESP 16–22; TEMP 36.4–36.6; O2SAT 93–97
[2022-04-27] MEDS: enoxaparin 40 mg/0.4 mL Syringe SUBCUT (02:33)
[2022-04-27] MEDS: ipratropium-albuterol 3 mL Neb INHALATION ×2 (03:15→21:23)
[2022-04-27 04:59] LABS: Basophils % 0.1 %; Eosinophils # 0.1 10^3/uL (0.0-0.8); Eosinophils % 0.4 %; Hematocrit 46.8 % (42.0-52.0); Hemoglobin 15.9 g/dL (11.7-16.6); Lymphocytes # 3.5 10^3/uL (0.8-4.8); Lymphocytes % 25.7 %; Mean Corpuscular Hemoglobin 30.6 pg (28.0-34.0); Mean Platelet Volume 9.3 fL (7.4-10.4); Monocytes # 1.2 10^3/uL (0.2-0.9); Neutrophils # 8.84 10^3/uL (1.8-7.7); Neutrophils % 64.4 %; Nucleated Red Blood Cells % 0 %; Platelet Count 398 10^3/cmm (130-400); Red Cell Distribution Width 11.9 % (12.1-15.1); White Blood Count 13.7 10^3/uL (4.0-10.0)
[2022-04-27 05:19] LABS: Anion Gap 14.2 (5-19); Blood Urea Nitrogen 30 mg/dL (8-23); Calcium 9.9 mg/dL (8.5-10.5); Carbon Dioxide 23 mmol/L (22-29); Chloride 100 mmol/L (98-107); Glucose 120 mg/dL (65-115); Osmolality Calculated 283 mOsm/kg (285-295); Potassium 4.2 mmol/L (3.5-5.1); Sodium 133 mmol/L (136-145)
[2022-04-27] MEDS: cyanocobalamin 1,000 mcg/mL SDV 1000 MCG IM (08:23)
[2022-04-27] MEDS: docusate sodium 100 mg Capsule PO ×2 (08:23→17:51)
[2022-04-27] MEDS: amlodipine 10 mg Tablet 5 MG PO (08:24)
[2022-04-27] MEDS: cloNIDine 0.1 mg Tablet PO ×2 (08:24→17:51)
[2022-04-27] MEDS: allopurinol 100 mg Tablet PO (08:24)
[2022-04-27] MEDS: predniSONE 20 mg Tablet 40 MG PO (08:25)
[2022-04-27] MEDS: hyDRALAzine 25 mg Tablet PO ×3 (08:25→21:39)
[2022-04-27] MEDS: colchicine 0.6 mg Tablet 0.3 MG PO (08:26)
[2022-04-27] MEDS: lidocaine 5% Patch 1 PATCH TOPICAL ×2 (08:26→21:42)
[2022-04-27] MEDS: polyethylene glycol 3350 Pkt 17 gm PO (08:27)
[2022-04-27] MEDS: lactulose oral liq 20 gm/30 mL UDC 10 GM PO (14:58)
--- NOTE | 2022-04-27 16:52 | PM.PN ---
Subjective Subjective: Feels stronger today. Patient is able to lift off both of his limbs off the bed. He did participate with PT earlier and per patient took few small steps. Requesting to cut back on Seroquel as he does not feel he needs it. Has some more strength in his arms today as well Medications: Reviewed: Yes Medication Review Details: Generic Name Dose Route Start Last Admin Trade Name Martina PRN Reason Stop Dose Admin Acetaminophen 500 mg 04/16/22 02:09 04/23/22 18:19 Acetaminophen 50 0 Mg Tablet PO 500 mg Q4H PRN Administration fever Albuterol/Ipratrop ium 3 ml 04/16/22 02:09 04/25/22 21:01 Ipratropium-Albu terol 3 Ml Neb INHALATION 3 ml Q6H PRN Administration SHORTNESS OF ERICK TH Allopurinol 100 mg 04/22/22 09:00 04/26/22 09:07 Allopurinol 100 Mg Tablet PO 100 mg DAILY BHANU Administration Amlodipine Besylat e 5 mg 04/19/22 08:00 04/26/22 09:07 Amlodipine 10 Mg Tablet PO 5 mg Q24H BHANU Administration Artificial Tears 1 drop 04/20/22 20:37 04/26/22 06:46 Artificial Tears Op Soln 15 Ml Btl EYE-BOTH 1 drop Q4H PRN Administration DRY EYE(S) Artificial Tears 1 applic 04/20/22 20:38 04/26/22 11:33 Artificial Tears Op Oint 3.5 Gm EYE-BOTH 1 applic BEDTIME PRN Administration AGITATION Budesonide 0.5 mg 04/18/22 20:00 04/26/22 09:34 Budesonide 0.5 M g/2 Ml Neb INHALATION Not Given BID.RESPIRATORY S CH Clonidine HCl 0.1 mg 04/20/22 09:00 04/26/22 09:06 Clonidine 0.1 Mg Tablet PO 0.1 mg TID BHANU Administration Colchicine 0.3 mg 04/22/22 09:00 04/26/22 11:32 Colchicine 0.6 M g Tablet PO 0.3 mg DAILY BHANU Administration Cyanocobalamin 1,000 mcg 04/16/22 13:15 04/26/22 09:08 Cyanocobalamin 1 ,000 Mcg/Ml Sdv IM 1,000 mcg DAILY BHANU Administration Diphenhydramine HC l 25 mg 04/16/22 14:18 04/18/22 05:03 Diphenhydramine 50 Mg/Ml Sdv 1ml IVP 25 mg Q4H PRN Administration ITCHING Docusate Sodium 100 mg 04/19/22 09:00 04/26/22 09:07 Docusate Sodium 100 Mg Capsule PO 100 mg BID BHANU Administration Enoxaparin Sodium 40 mg 04/16/22 02:30 04/26/22 03:07 Enoxaparin 40 Mg /0.4 Ml Syringe SUBCUT 40 mg Q24H BHANU Administration Hydralazine HCl 10 mg 04/16/22 02:19 04/21/22 04:37 Hydralazine 20 M g/Ml Inj 1 Ml IVP 10 mg Q4H PRN Administration Blood pressure >1 80/100 Hydralazine HCl 25 mg 04/26/22 14:00 04/26/22 14:28 Hydralazine 25 M g Tablet PO 25 mg TID BHANU Administration Lidocaine 1 patch 04/17/22 02:40 04/26/22 11:32 Lidocaine 5% Pat ch TOPICAL 1 patch [id number] BHANU Administration Ondansetron HCl 4 mg 04/18/22 07:32 04/26/22 05:42 Ondansetron 2 Mg /Ml Sdv 2 Ml IVP 4 mg Q4H PRN Administration NAUSEA AND VOMITI NG Polyethylene Glyco l 17 gm 04/19/22 09:00 04/26/22 09:06 Polyethylene Gly col 3350 Pkt 17 Gm PO 17 gm DAILY BHANU Administration Prednisone 40 mg 04/23/22 14:05 04/26/22 09:07 Prednisone 20 Mg Tablet PO 04/27/22 09:01 40 mg DAILY BHANU Administration Quetiapine Fumarat e 50 mg 04/18/22 09:00 04/26/22 09:30 Quetiapine 25 Mg Tablet PO Not Given BID BHANU Sodium Chloride 1 spray 04/16/22 20:46 04/16/22 21:40 Saline Nasal Spr ay 44ml Btl NASAL 1 spray PRN PRN Administration DRYNESS Thiamine HCl 100 mg 04/16/22 14:18 04/26/22 09:08 Thiamine 100 Mg/ Ml Sdv IM 100 mg DAILY BHANU Administration Vitals/I&O/Wt Last Vital Signs Temp 97.8 F 04/27/22 12:00 Pulse 70 04/27/22 14:00 Resp 16 04/27/22 12:00 BP 120/76 04/27/22 12:00 Pulse Ox 94 04/27/22 12:00 O2 Del Method 04/27/22 12:00 O2 Flow Rate 30 04/20/22 08:55 FiO2 40 04/24/22 20:00 04/27/22 04/27/22 04/27/22 06:59 14:59 22:59 Intake Total 300 / 300 Output Total 750 / 3850 Balance -750 / -1890 300 / 300 Physical Exam Narrative: General: No acute distress, AO x3 HEENT: PERRLA, pupils bilaterally equal and reactive, pallors not present Chest: Normal vesicular breath sounds, no added sounds, equal good air entry bilaterally CVS: S1-S2 regular, no murmurs, no tachycardia, no gallops, no rubs Abdomen: Soft, nontender, no organomegaly, bowel sounds present Neuro: Improving bilateral upper and lower extremity weakness, no respiratory issues currently, able to swallow appropriately. 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: (4) Hyponatremia: (5) AIDP (acute inflammatory demyelinating polyneuropathy): (6) Unable to ambulate: (7) Dizziness: (8) Paresthesia of both hands: (9) Paresthesia of both feet: (10) Weakness of both lower extremities: (11) Bilateral arm weakness: (12) Respiratory abnormality: (13) Ataxia: (14) Vitamin B12 deficiency: (15) Hypertensive urgency: (16) Pneumonia: (17) Aspiration pneumonitis: (18) Gout flare: Plan 61-year-old male with past medical history of gout on colchicine and allopurinol, was visiting his daughter in [place] originally resident of [place] was brought in with chief complaint of not able to walk and dizziness, patient was diagnosed with COVID-19 pneumonia 4 weeks back, and then after he had also suffered sinus infection for which he took antibiotics, had dental procedure done 2 weeks before, for which she had received antibiotics for 3 to 4 days, on admission he was noted to have tingling and numbness, Subsequently he started quickly developing progressive ascending flaccid paralysis, predominantly proximal muscle weakness.During the hospital stay based on his clinical presentation, initial CSF analysis showing ACD, though not a very specific marker,Imaging studies, he was managed for 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 Patient completed 5-day course ofIVIG, during IVIG course: He also developed severe hyponatremia: Secondary to SIADH: For which renal was on board received hypertonic saline, salt tablets, BMP was monitored.Currently serum sodium has normalized. During the hospital stay patient had also managed for acute hypoxic respiratory failure: Possibly secondary to Respiratory muscle weakness: NIF was monitored, patient was kept on noninvasive positive pressure ventilation(BiPAP / heated high flow ) currently off noninvasive positive pressure ventilation, doing well on room air. CSF culture: Grew staph aureus: Low clinical suspicion for staph meningitis: Based on the overall clinical presentation: Patient was initially kept on vancomycin which was discontinued later. Currently patient still has extremity weakness more on left side, patient had also developed autonomic dysfunction during the hospital stay, he was having accelerated hypertension, currently on antihypertensive medication,tachycardia. Patient had also developed gout flare during the hospital stay: For which initially he was placed on Toradol, later he was started on prednisone 40 p.o. daily for 5 days, with improvement in symptoms. Patient also has severe B12 deficiency: Currently on thiamine replacement 100 mg IM daily. Patient will need long-term thiamine replacement. With interval monitoring of serum B12 level. Pertinent imaging studies done during the hospital stay includes. CT head without contrast: No acute intracranial pathology, CTA head and neck: No flow-limiting stenosis MRI brain without contrast: No acute finding, Neck MRI no acute findings.2D echo: Normal left ventricular size, systolic function and wallvthickness, with no regional wall motion abnormalities.Normal?left ventricular wall thickness. Grade I/IV diastolic ?dysfunction (abnormal relaxation filling pattern), normal to ?mildly elevated filling pressures. Blood culture negative, tick panel negative, respiratory viral panel negative,ganglioside antibodies: Pending Speech, PT OT has been on board, patient is slowly improving. CODE STATUS: Full code DVT prophylaxis: On Lovenox Disposition: Patient is awaiting placement to rehab. Plan for today: We are awaiting appropriate disposition planning, patient will benefit from continued inpatient rehab, major case detective management working on appropriate facilities. Attestations Medical Necessity Statement*: Ongoing need for intensive physical therapy for recovering GBS/CIDP. Will need inpatient rehab. 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
--- NOTE | 2022-04-27 19:37 | PC.NURSE ---
Patient resting bed, at bedside, AAOx4, VSS, OOBTC a few times during shift and frequently turning self with help from . No new events or needs, room clean and clutter free with call light in reach. All questions addressed throughout shift, report given bedside to oncoming nurse.
[2022-04-27] MEDS: budesonide 0.5 mg/2 mL Neb INHALATION (21:23)
[2022-04-28] VITALS (12 sets, daily range): BP systolic 118–138; BP diastolic 75–89; PULSE 72–101; RESP 16–18; TEMP 36.4–36.9; O2SAT 94–99
[2022-04-28] MEDS: enoxaparin 40 mg/0.4 mL Syringe SUBCUT (03:16)
--- NOTE | 2022-04-28 07:32 | PC.NURSE ---
Addendum entered by Leena Wadsworth RN 04/28/22 19:29: Patient resting in bed at this time, AAOx4, VSS, OOBTC few times throughout shift and frequently exercising legs and arms in bed with small weights and at bedside. No c/o pain or discomfort, no new events, no needs at this time. All questions and concerns addressed throughout shift, room clean and clutter free with call light within reach. Patient has not voided since ramos removal. Oncoming nurse and account manager trainee will be getting a bladder scan at appropriate time. Report given bedside to oncoming nurse. Original Note: This nurse is assuming care of patient, patient resting in bed doing leg exercises with at bedside. Patient is AAOx4, no needs at this time, room clean and clutter free with call light within reach. Will continue to monitor patient throughout shift.
[2022-04-28] MEDS: cyanocobalamin 1,000 mcg Tablet 500 MCG PO (08:24)
[2022-04-28] MEDS: hyDRALAzine 25 mg Tablet PO ×3 (08:24→20:59)
[2022-04-28] MEDS: quetiapine 25 mg Tablet PO ×2 (08:24→17:26)
[2022-04-28] MEDS: colchicine 0.6 mg Tablet 0.3 MG PO (08:24)
[2022-04-28] MEDS: amlodipine 10 mg Tablet 5 MG PO (08:24)
[2022-04-28] MEDS: thiamine 100 mg Tablet PO (08:25)
[2022-04-28] MEDS: allopurinol 100 mg Tablet PO (08:25)
[2022-04-28] MEDS: cloNIDine 0.1 mg Tablet PO ×2 (08:25→17:26)
[2022-04-28] MEDS: docusate sodium 100 mg Capsule PO ×2 (08:25→17:26)
[2022-04-28] MEDS: polyethylene glycol 3350 Pkt 17 gm PO (08:36)
[2022-04-28] MEDS: lactulose oral liq 20 gm/30 mL UDC 10 GM PO ×3 (08:37→20:59)
[2022-04-28] MEDS: ipratropium-albuterol 3 mL Neb INHALATION (08:53)
[2022-04-28] MEDS: budesonide 0.5 mg/2 mL Neb INHALATION (08:53)
--- NOTE | 2022-04-28 14:08 | PM.PN ---
Subjective Subjective: Patient was able to sit up in chair by bedside through the morning. Has taken a few short steps. No acute interim events. Lab break today. Complaining of constipation. Lactulose 1 time a day was added yesterday, will up frequency to 3 times a day. Has not had a bowel movement in over a week. He is able to pass flatus. Medications: Reviewed: Yes Medication Review Details: Generic Name Dose Route Start Last Admin Trade Name Freq PRN Reason Stop Dose Admin Acetaminophen 500 mg 04/16/22 02:09 04/23/22 18:19 Acetaminophen 50 0 Mg Tablet PO 500 mg Q4H PRN Administration fever Albuterol/Ipratrop ium 3 ml 04/16/22 02:09 04/25/22 21:01 Ipratropium-Albu terol 3 Ml Neb INHALATION 3 ml Q6H PRN Administration SHORTNESS OF ERICK TH Allopurinol 100 mg 04/22/22 09:00 04/26/22 09:07 Allopurinol 100 Mg Tablet PO 100 mg DAILY BHANU Administration Amlodipine Besylat e 5 mg 04/19/22 08:00 04/26/22 09:07 Amlodipine 10 Mg Tablet PO 5 mg Q24H BHANU Administration Artificial Tears 1 drop 04/20/22 20:37 04/26/22 06:46 Artificial Tears Op Soln 15 Ml Btl EYE-BOTH 1 drop Q4H PRN Administration DRY EYE(S) Artificial Tears 1 applic 04/20/22 20:38 04/26/22 11:33 Artificial Tears Op Oint 3.5 Gm EYE-BOTH 1 applic BEDTIME PRN Administration AGITATION Budesonide 0.5 mg 04/18/22 20:00 04/26/22 09:34 Budesonide 0.5 M g/2 Ml Neb INHALATION Not Given BID.RESPIRATORY S CH Clonidine HCl 0.1 mg 04/20/22 09:00 04/26/22 09:06 Clonidine 0.1 Mg Tablet PO 0.1 mg TID BHANU Administration Colchicine 0.3 mg 04/22/22 09:00 04/26/22 11:32 Colchicine 0.6 M g Tablet PO 0.3 mg DAILY BHANU Administration Cyanocobalamin 1,000 mcg 04/16/22 13:15 04/26/22 09:08 Cyanocobalamin 1 ,000 Mcg/Ml Sdv IM 1,000 mcg DAILY BHANU Administration Diphenhydramine HC l 25 mg 04/16/22 14:18 04/18/22 05:03 Diphenhydramine 50 Mg/Ml Sdv 1ml IVP 25 mg Q4H PRN Administration ITCHING Docusate Sodium 100 mg 04/19/22 09:00 04/26/22 09:07 Docusate Sodium 100 Mg Capsule PO 100 mg BID BHANU Administration Enoxaparin Sodium 40 mg 04/16/22 02:30 04/26/22 03:07 Enoxaparin 40 Mg /0.4 Ml Syringe SUBCUT 40 mg Q24H BHANU Administration Hydralazine HCl 10 mg 04/16/22 02:19 04/21/22 04:37 Hydralazine 20 M g/Ml Inj 1 Ml IVP 10 mg Q4H PRN Administration Blood pressure >1 80/100 Hydralazine HCl 25 mg 04/26/22 14:00 04/26/22 14:28 Hydralazine 25 M g Tablet PO 25 mg TID BHANU Administration Lidocaine 1 patch 04/17/22 02:40 04/26/22 11:32 Lidocaine 5% Pat ch TOPICAL 1 patch [id number] BHANU Administration Ondansetron HCl 4 mg 04/18/22 07:32 04/26/22 05:42 Ondansetron 2 Mg /Ml Sdv 2 Ml IVP 4 mg Q4H PRN Administration NAUSEA AND VOMITI NG Polyethylene Glyco l 17 gm 04/19/22 09:00 04/26/22 09:06 Polyethylene Gly col 3350 Pkt 17 Gm PO 17 gm DAILY BHANU Administration Prednisone 40 mg 04/23/22 14:05 04/26/22 09:07 Prednisone 20 Mg Tablet PO 04/27/22 09:01 40 mg DAILY BHANU Administration Quetiapine Fumarat e 50 mg 04/18/22 09:00 04/26/22 09:30 Quetiapine 25 Mg Tablet PO Not Given BID BHANU Sodium Chloride 1 spray 04/16/22 20:46 04/16/22 21:40 Saline Nasal Spr ay 44ml Btl NASAL 1 spray PRN PRN Administration DRYNESS Thiamine HCl 100 mg 04/16/22 14:18 04/26/22 09:08 Thiamine 100 Mg/ Ml Sdv IM 100 mg DAILY BHANU Administration Vitals/I&O/Wt Last Vital Signs Temp 97.5 F L 04/28/22 11:54 Pulse 101 H 04/28/22 11:54 Resp 16 04/28/22 11:54 BP 133/88 04/28/22 11:54 Pulse Ox 95 04/28/22 11:54 O2 Del Method 04/28/22 11:54 O2 Flow Rate 30 04/20/22 08:55 FiO2 40 04/24/22 20:00 04/27/22 04/28/22 04/28/22 22:59 06:59 14:59 Intake Total 120 / 420 120 / 120 Output Total 1050 / 1050 625 / 1675 310 / 310 Balance -930 / -630 -625 / -1255 -190 / -190 Physical Exam Narrative: General: No acute distress, AO x3 HEENT: PERRLA, pupils bilaterally equal and reactive, pallors not present Chest: Normal vesicular breath sounds, no added sounds, equal good air entry bilaterally CVS: S1-S2 regular, no murmurs, no tachycardia, no gallops, no rubs Abdomen: Soft, nontender, no organomegaly, bowel sounds present Neuro: Improving bilateral upper and lower extremity weakness, no respiratory issues currently, able to swallow appropriately. 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: (4) Hyponatremia: (5) AIDP (acute inflammatory demyelinating polyneuropathy): (6) Unable to ambulate: (7) Dizziness: (8) Paresthesia of both hands: (9) Paresthesia of both feet: (10) Weakness of both lower extremities: (11) Bilateral arm weakness: (12) Respiratory abnormality: (13) Ataxia: (14) Vitamin B12 deficiency: (15) Hypertensive urgency: (16) Pneumonia: (17) Aspiration pneumonitis: (18) Gout flare: Plan 61-year-old male with past medical history of gout on colchicine and allopurinol, was visiting his daughter in [place] originally resident of [place] was brought in with chief complaint of not able to walk and dizziness, patient was diagnosed with COVID-19 pneumonia 4 weeks back, and then after he had also suffered sinus infection for which he took antibiotics, had dental procedure done 2 weeks before, for which she had received antibiotics for 3 to 4 days, on admission he was noted to have tingling and numbness, Subsequently he started quickly developing progressive ascending flaccid paralysis, predominantly proximal muscle weakness.During the hospital stay based on his clinical presentation, initial CSF analysis showing ACD, though not a very specific marker,Imaging studies, he was managed for 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 Patient completed 5-day course ofIVIG, during IVIG course: He also developed severe hyponatremia: Secondary to SIADH: For which renal was on board received hypertonic saline, salt tablets, BMP was monitored.Currently serum sodium has normalized. During the hospital stay patient had also managed for acute hypoxic respiratory failure: Possibly secondary to Respiratory muscle weakness: NIF was monitored, patient was kept on noninvasive positive pressure ventilation(BiPAP / heated high flow ) currently off noninvasive positive pressure ventilation, doing well on room air. CSF culture: Grew staph aureus: Low clinical suspicion for staph meningitis: Based on the overall clinical presentation: Patient was initially kept on vancomycin which was discontinued later. Currently patient still has extremity weakness , however improving now significantly. patient had also developed autonomic dysfunction during the hospital stay, he was having accelerated hypertension, currently on antihypertensive medication,tachycardia. Patient had also developed gout flare during the hospital stay: For which initially he was placed on Toradol, later he was started on prednisone 40 p.o. daily for 5 days, with improvement in symptoms. Patient also has severe B12 deficiency: Currently on thiamine replacement 100 mg IM daily, now changed to po. Patient will need long-term thiamine replacement. With interval monitoring of serum B12 level. Pertinent imaging studies done during the hospital stay includes. CT head without contrast: No acute intracranial pathology, CTA head and neck: No flow-limiting stenosis MRI brain without contrast: No acute finding, Neck MRI no acute findings.2D echo: Normal left ventricular size, systolic function and wallvthickness, with no regional wall motion abnormalities.Normal?left ventricular wall thickness. Grade I/IV diastolic ?dysfunction (abnormal relaxation filling pattern), normal to ?mildly elevated filling pressures. Blood culture negative, tick panel negative, respiratory viral panel negative,ganglioside antibodies: Pending Speech, PT OT has been on board, patient is slowly improving. HIS HTN is currently well controlled on hydralazien and clonidine Patient is requesting cutting back on seroquel as he does not beleive he needs this medication. Counselled that abrupt discontinuation is not recommended, we have cut back from 50BID to 25 BID and slow taper down can continue Add lactulose 10mg TID for constipation, passing flatus well D/C ramos and monitor for urinary retention CODE STATUS: Full code DVT prophylaxis: On Lovenox Disposition: Patient is awaiting placement to rehab. He wishes to consider goigng back to [place] and case management is coordinating the same. 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
[2022-04-29] VITALS (9 sets, daily range): BP systolic 120–134; BP diastolic 72–86; PULSE 71–92; RESP 16–18; TEMP 36.5–36.8; O2SAT 94–97
[2022-04-29] MEDS: enoxaparin 40 mg/0.4 mL Syringe SUBCUT (02:37)
[2022-04-29] MEDS: budesonide 0.5 mg/2 mL Neb INHALATION ×2 (08:45→19:50)
[2022-04-29] MEDS: lactulose oral liq 20 gm/30 mL UDC 10 GM PO ×3 (09:17→21:02)
[2022-04-29] MEDS: polyethylene glycol 3350 Pkt 17 gm PO (09:17)
[2022-04-29] MEDS: cyanocobalamin 1,000 mcg Tablet 500 MCG PO (09:17)
[2022-04-29] MEDS: cloNIDine 0.1 mg Tablet PO (09:18)
[2022-04-29] MEDS: allopurinol 100 mg Tablet PO (09:18)
[2022-04-29] MEDS: thiamine 100 mg Tablet PO (09:19)
[2022-04-29] MEDS: docusate sodium 100 mg Capsule PO ×2 (09:20→17:15)
[2022-04-29] MEDS: amlodipine 10 mg Tablet 5 MG PO (09:20)
[2022-04-29] MEDS: quetiapine 25 mg Tablet PO ×2 (09:20→17:15)
[2022-04-29] MEDS: hyDRALAzine 25 mg Tablet PO ×3 (09:20→21:02)
[2022-04-29] MEDS: lidocaine 5% Patch 1 PATCH TOPICAL (09:23)
[2022-04-29] MEDS: colchicine 0.6 mg Tablet 0.3 MG PO (09:24)
[2022-04-29 11:10] LABS: Glucose Point of Care 146 mg/dL (70-110)
[2022-04-29] MEDS: glycerin adult supp 1 EACH PR (17:15)
--- NOTE | 2022-04-29 17:57 | P.PN_ITS ---
Subjective Subjective: Ramos was removed yesterday afternoon, however patient developed urinary retention and Ramos needed to be replaced last night. He did not have the urge even though he was distended. Continues to be constipated as well. No effect of lactulose so far. We will be trying a suppository today. He walked about 40 feet today with assistance. No other new complaints otherwise. Medications: Reviewed: Yes Medication Review Details: Generic Name Dose Route Start Last Admin Trade Name Martina PRN Reason Stop Dose Admin Acetaminophen 500 mg 04/16/22 02:09 04/23/22 18:19 Acetaminophen 50 0 Mg Tablet PO 500 mg Q4H PRN Administration fever Albuterol/Ipratrop ium 3 ml 04/16/22 02:09 04/25/22 21:01 Ipratropium-Albu terol 3 Ml Neb INHALATION 3 ml Q6H PRN Administration SHORTNESS OF ERICK TH Allopurinol 100 mg 04/22/22 09:00 04/26/22 09:07 Allopurinol 100 Mg Tablet PO 100 mg DAILY BHANU Administration Amlodipine Besylat e 5 mg 04/19/22 08:00 04/26/22 09:07 Amlodipine 10 Mg Tablet PO 5 mg Q24H BHANU Administration Artificial Tears 1 drop 04/20/22 20:37 04/26/22 06:46 Artificial Tears Op Soln 15 Ml Btl EYE-BOTH 1 drop Q4H PRN Administration DRY EYE(S) Artificial Tears 1 applic 04/20/22 20:38 04/26/22 11:33 Artificial Tears Op Oint 3.5 Gm EYE-BOTH 1 applic BEDTIME PRN Administration AGITATION Budesonide 0.5 mg 04/18/22 20:00 04/26/22 09:34 Budesonide 0.5 M g/2 Ml Neb INHALATION Not Given BID.RESPIRATORY S CH Clonidine HCl 0.1 mg 04/20/22 09:00 04/26/22 09:06 Clonidine 0.1 Mg Tablet PO 0.1 mg TID BHANU Administration Colchicine 0.3 mg 04/22/22 09:00 04/26/22 11:32 Colchicine 0.6 M g Tablet PO 0.3 mg DAILY BHANU Administration Cyanocobalamin 1,000 mcg 04/16/22 13:15 04/26/22 09:08 Cyanocobalamin 1 ,000 Mcg/Ml Sdv IM 1,000 mcg DAILY BHANU Administration Diphenhydramine HC l 25 mg 04/16/22 14:18 04/18/22 05:03 Diphenhydramine 50 Mg/Ml Sdv 1ml IVP 25 mg Q4H PRN Administration ITCHING Docusate Sodium 100 mg 04/19/22 09:00 04/26/22 09:07 Docusate Sodium 100 Mg Capsule PO 100 mg BID BHANU Administration Enoxaparin Sodium 40 mg 04/16/22 02:30 04/26/22 03:07 Enoxaparin 40 Mg /0.4 Ml Syringe SUBCUT 40 mg Q24H BHANU Administration Hydralazine HCl 10 mg 04/16/22 02:19 04/21/22 04:37 Hydralazine 20 M g/Ml Inj 1 Ml IVP 10 mg Q4H PRN Administration Blood pressure >1 80/100 Hydralazine HCl 25 mg 04/26/22 14:00 04/26/22 14:28 Hydralazine 25 M g Tablet PO 25 mg TID BHANU Administration Lidocaine 1 patch 04/17/22 02:40 04/26/22 11:32 Lidocaine 5% Pat ch TOPICAL 1 patch [id number] BHANU Administration Ondansetron HCl 4 mg 04/18/22 07:32 04/26/22 05:42 Ondansetron 2 Mg /Ml Sdv 2 Ml IVP 4 mg Q4H PRN Administration NAUSEA AND VOMITI NG Polyethylene Glyco l 17 gm 04/19/22 09:00 04/26/22 09:06 Polyethylene Gly col 3350 Pkt 17 Gm PO 17 gm DAILY BHANU Administration Prednisone 40 mg 04/23/22 14:05 04/26/22 09:07 Prednisone 20 Mg Tablet PO 04/27/22 09:01 40 mg DAILY BHANU Administration Quetiapine Fumarat e 50 mg 04/18/22 09:00 04/26/22 09:30 Quetiapine 25 Mg Tablet PO Not Given BID BHANU Sodium Chloride 1 spray 04/16/22 20:46 04/16/22 21:40 Saline Nasal Spr ay 44ml Btl NASAL 1 spray PRN PRN Administration DRYNESS Thiamine HCl 100 mg 04/16/22 14:18 04/26/22 09:08 Thiamine 100 Mg/ Ml Sdv IM 100 mg DAILY BHANU Administration Vitals/I&O/Wt Last Vital Signs Temp 98.0 F 04/29/22 12:00 Pulse 88 04/29/22 12:00 Resp 18 04/29/22 12:00 BP 120/81 04/29/22 12:00 Pulse Ox 96 04/29/22 12:00 O2 Del Method 04/29/22 12:00 O2 Flow Rate 30 04/20/22 08:55 FiO2 40 04/24/22 20:00 04/29/22 04/29/22 04/29/22 06:59 14:59 22:59 Intake Total 480 / 480 Output Total 400 / 1210 Balance -400 / -1090 480 / 480 Physical Exam Narrative: General: No acute distress, AO x3 HEENT: PERRLA, pupils bilaterally equal and reactive, pallors not present Chest: Normal vesicular breath sounds, no added sounds, equal good air entry bilaterally CVS: S1-S2 regular, no murmurs, no tachycardia, no gallops, no rubs Abdomen: Soft, nontender, no organomegaly, bowel sounds present Neuro: Improving bilateral upper and lower extremity weakness, no respiratory issues currently, able to swallow appropriately. 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: (4) Hyponatremia: (5) AIDP (acute inflammatory demyelinating polyneuropathy): (6) Unable to ambulate: (7) Dizziness: (8) Paresthesia of both hands: (9) Paresthesia of both feet: (10) Weakness of both lower extremities: (11) Bilateral arm weakness: (12) Respiratory abnormality: (13) Ataxia: (14) Vitamin B12 deficiency: (15) Hypertensive urgency: (16) Pneumonia: (17) Aspiration pneumonitis: (18) Gout flare: Plan 61-year-old male with past medical history of gout on colchicine and allopurinol, was visiting his daughter in [place] originally resident of [place] was brought in with chief complaint of not able to walk and dizziness, patient was diagnosed with COVID-19 pneumonia 4 weeks back, and then after he had also suffered sinus infection for which he took antibiotics, had dental proc edure done 2 weeks before, for which she had received antibiotics for 3 to 4 days, on admission he was noted to have tingling and numbness, Subsequently he started quickly developing progressive ascending flaccid paralysis, predominantly proximal muscle weakness.During the hospital stay based on his clinical presentation, initial CSF analysis showing ACD, though not a very specific marker,Imaging studies, he was managed for 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 Patient completed 5-day course ofIVIG, during IVIG course: He also developed severe hyponatremia: Secondary to SIADH: For which renal was on b oard received hypertonic saline, salt tablets, BMP was monitored.Currently serum sodium has normalized. During the hospital stay patient had also managed for acute hypoxic respiratory failure: Possibly secondary to Respiratory muscle weakness: NIF was monitored, patient was kept on noninvasive positive pressure ventilation(BiPAP / heated high flow ) currently off noninvasive positive pressure ventilation, doing well on room air. CSF culture: Grew staph aureus: Low clinical suspicion for staph meningitis: Based on the overall clinical presentation: Patient was initially kept on vancomycin which was discontinued later. Currently patient still has extremity weakness , however improving now sig nificantly. patient had also developed autonomic dysfunction during the hospital stay, he was having accelerated hypertension, currently on antihypertensive medication,tachycardia. Patient had also developed gout flare during the hospital stay: For which initially he was placed on Toradol, later he was started on prednisone 40 p.o. daily for 5 days, with improvement in symptoms. Patient also has severe B12 deficiency: Currently on thiamine replacement 100 mg IM daily, now changed to po. Patient will need long-term thiamine replacement. With interval monitoring of serum B12 level. Pertinent imaging studies done during the hospital stay includes. CT head without contrast: No acute intracranial pathology, CTA head and neck: No flow-limiting stenosis MRI brain without contrast: No acute finding, Neck MRI no acute findings.2D echo: Normal left ventricular size, systolic function and wallvthickness, with no regional wall motion abnormalities.Normal?left ventricular wall thickness. Grade I/IV diastolic ?dysfunction (abnormal relaxation filling pattern), normal to ?mildly elevated filling pressures. Blood culture negative, tick panel negative, respiratory viral panel negative,ganglioside antibodies: Pending Speech, PT OT has been on board, patient is slowly improving. HIS HTN is currently well controlled on hydralazien and clonidine Patient is requesting cutting back on seroquel as he does not beleive he needs this medication. Counselled that abrupt discontinuation is not recommended, we have cut back from 50BID to 25 BID and slow taper down can continue continue lactulose 10mg TID for constipation, passing flatus well , add glycerin supposirtoy and fleet enema prn D/Solomon ramos on 04/28 but had urinary retention again. WIll need to maintain for now. CODE STATUS: Full code DVT prophylaxis: On Lovenox Disposition: Patient is awaiting placement to rehab. He wishes to consider goigng back to [place] and case management is coordinating the same. 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
[2022-04-30] VITALS (8 sets, daily range): BP systolic 122–144; BP diastolic 76–81; PULSE 72–86; RESP 16–18; TEMP 36.7–36.9; O2SAT 94–97
[2022-04-30] MEDS: enoxaparin 40 mg/0.4 mL Syringe SUBCUT (01:59)
[2022-04-30 04:19] LABS: Basophils # 0.1 10^3/uL (0.0-0.1); Basophils % 0.4 %; Eosinophils # 0.2 10^3/uL (0.0-0.8); Eosinophils % 1.7 %; Hematocrit 47.3 % (42.0-52.0); Hemoglobin 16.2 g/dL (11.7-16.6); Lymphocytes # 3.4 10^3/uL (0.8-4.8); Lymphocytes % 24.6 %; Mean Corpuscular HGB Conc 34.2 g/dL (30.0-36.0); Mean Corpuscular Hemoglobin 30.6 pg (28.0-34.0); Mean Corpuscular Volume 89.2 fl (80-94); Mean Platelet Volume 9.2 fL (7.4-10.4); Monocytes # 0.9 10^3/uL (0.2-0.9); Monocytes % 6.8 %; Neutrophils # 9.12 10^3/uL (1.8-7.7); Nucleated Red Blood Cells % 0 %; Platelet Count 388 10^3/cmm (130-400); Red Cell Distribution Width 12.1 % (12.1-15.1); White Blood Count 13.8 10^3/uL (4.0-10.0)
[2022-04-30 04:41] LABS: Alanine Aminotransferase 73 U/L (0-41); Albumin Level 3.1 g/dL (3.5-5.2); Alkaline Phosphatase 108 U/L (40-130); Blood Urea Nitrogen 24 mg/dL (8-23); Calcium 9.5 mg/dL (8.5-10.5); Carbon Dioxide 22 mmol/L (22-29); Chloride 99 mmol/L (98-107); Globulin 4.5 g/dL (1.3-4.6); Glucose 110 mg/dL (65-115); Osmolality Calculated 275 mOsm/kg (285-295); Sodium 130 mmol/L (136-145); Total Bilirubin 0.5 mg/dL (0.15-1.2); Total Protein 7.6 g/dL (6.6-8.7)
[2022-04-30 05:03] LABS: Anion Gap 13.1 (5-19); Aspartate Amino Transferase 43 U/L (0-40); Potassium 4.1 mmol/L (3.5-5.1)
[2022-04-30] MEDS: budesonide 0.5 mg/2 mL Neb INHALATION (07:59)
[2022-04-30] MEDS: amlodipine 10 mg Tablet 5 MG PO (08:47)
[2022-04-30] MEDS: hyDRALAzine 25 mg Tablet PO (08:48)
[2022-04-30] MEDS: allopurinol 100 mg Tablet PO (08:48)
[2022-04-30] MEDS: cyanocobalamin 1,000 mcg Tablet 500 MCG PO (08:48)
[2022-04-30] MEDS: polyethylene glycol 3350 Pkt 17 gm PO (08:50)
[2022-04-30] MEDS: docusate sodium 100 mg Capsule PO (10:11)
[2022-04-30] MEDS: colchicine 0.6 mg Tablet 0.3 MG PO (10:11)
[2022-04-30] MEDS: lidocaine 5% Patch 1 PATCH TOPICAL (10:12)
[2022-04-30] MEDS: thiamine 100 mg Tablet PO (10:12)
[2022-04-30] MEDS: lactulose oral liq 20 gm/30 mL UDC 10 GM PO (10:13)
[2022-04-30] MEDS: quetiapine 25 mg Tablet PO (10:13)
[2022-04-30] MEDS: cloNIDine 0.1 mg Tablet PO (10:14)
--- NOTE | 2022-04-30 12:40 | PC.NURSE ---
Offered patient a enema at this time. Patient states, I don't want it until I get there becasue I don't want another problem.
--- NOTE | 2022-04-30 14:44 | P.DS_ITS ---
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 (4) Hyponatremia: Status: Acute (5) AIDP (acute inflammatory demyelinating polyneuropathy): Status: Acute (6) Unable to ambulate: Status: Acute (7) Dizziness: Status: Acute (8) Paresthesia of both hands: Status: Acute (9) Paresthesia of both feet: Status: Acute (10) Weakness of both lower extremities: Status: Acute (11) Bilateral arm weakness: Status: Acute (12) Respiratory abnormality: Status: Acute (13) Vitamin B12 deficiency: Status: Acute (14) Hypertensive urgency: Status: Acute (15) Pneumonia: Status: Acute (16) Aspiration pneumonitis: Status: Acute (17) Gout flare: Status: Acute Reason for Visit Reason for Visit: numbness in bilateral hands and feet, cp, sob Hospital Course Hospital Course 61-year-old male with past medical history of gout on colchicine and allopurinol, was visiting his daughter in [place] originally resident of [place] was brought in with chief complaint of not able to walk and dizziness, patient was diagnosed with COVID-19 pneumonia 4 weeks back, and then after he had also suffered sinus infection for which he took antibiotics, had dental procedure done 2 weeks before, for which she had received antibiotics for 3 to 4 days, on admission he was noted to have tingling and numbness, Subsequently he started quickly developing progressive ascending flaccid paralysis, predominantly proximal muscle weakness.During the hospital stay based on his clinical presentation, initial CSF analysis showing ACD, though not a very specific marker,Imaging studies, he was managed for 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 Patient completed 5-day course ofIVIG, during IVIG course: He also developed severe hyponatremia: Secondary to SIADH: For which renal was on board received hypertonic saline, salt tablets, BMP was monitored.Currently serum sodium has normalized. During the hospital stay patient had also managed for acute hypoxic respiratory failure: Possibly secondary to respiratory muscle weakness: NIF was monitored, patient was kept on noninvasive positive pressure ventilation(BiPAP / heated high flow ) currently off noninvasive positive pressure ventilation, doing well on room air.? CSF culture: Grew staph aureus: Low clinical suspicion for staph meningitis: Based on the overall clinical presentation: Patient was initially kept on vancomycin which was discontinued later. Currently patient still has extremity weakness , however improving now significantly. patient had also developed autonomic dysfunction during the hospital stay, he was having accelerated hypertension, currently on antihypertensive medication,tachycardia.? Patient had also developed gout flare during the hospital stay: For which initially he was placed on Toradol, later he was started on prednisone 40 p.o. daily for 5 days, with improvement in symptoms.? Patient also has severe B12 deficiency: Currently on thiamine replacement 100 mg IM daily, now changed to po. Patient will need long-term thiamine replacement. With interval monitoring of serum B12 level. Pertinent imaging studies done during the hospital stay includes. CT head without contrast: No acute intracranial pathology, CTA head and neck: No flow-limiting stenosis MRI brain without contrast: No acute finding, Neck MRI no acute findings.2D echo:?Normal left ventricular size, systolic function and wallvthickness, with no regional wall motion abnormalities.Normal?left ventricular wall thickness. Grade I/IV diastolic ?dysfunction (abnormal relaxation filling pattern), normal to ?mildly elevated filling pressures. Blood culture negative, tick panel negative, respiratory viral panel negative,ganglioside antibodies: Pending Speech, PT OT has been on board, patient is slowly improving. He is able to ambulate few short steps within the room. He had evidence of autonomic instability with newly diagnosed HTN, His HTN is currently well controlled on hydralazine and clonidine Patient is requesting cutting back on seroquel as he does not beleive he needs this medication. Counselled that abrupt discontinuation is not recommended, we have cut back from 50BID to 25 BID and slow taper down can continue? Current hospital issues include constipation for which patient is on lactulose 10mg TID, docusate. He had a suppository yesterday with minimal BM. HE also has urinary retention. Ramos was ttemepted to be removed on 04/18 however needed to be replaced as he retianed urine, had no urge. Trial of ramos clamping can be constinued at rehab facility . He will benefit from continued intense inpatient rehab to recover from his recent illness and is being transitioned to inpatient rehab at [facility]. Physical Exam Narrative: General: No acute distress, AO x3 HEENT: PERRLA, pupils bilaterally equal and reactive, pallors not present Chest: Normal vesicular breath sounds, no added sounds, equal good air entry bilaterally CVS: S1-S2 regular, no murmurs, no tachycardia, no gallops, no rubs Abdomen: Soft, nontender, no organomegaly, bowel sounds present Neuro: No focal deficits, no facial deformity, AO x3, power 5/5 in all limbs Urinary Catheter Management: Ramos: Cath Placed During This Visit: yes, but has since been removed by the nurse Reason for Continuing Indwelling Catheter: Decision to DC Catheter Urinary Catheter Date of Insertion: 04/28/22 Urinary Catheter Time of Insertion: 22:20 Date Urinary Catheter Removed: 04/28/22 Time Urinary Catheter Discontinued: 14:35 Discharge Data Studies Completed and Pending Completed Studies During Hospitalization Category Date Time Status CT angio chest PE protcl [id number] Routine Cat Scan 04/18/22 12:[address] head wo con* [id number] Routine Cat Scan 04/16/22 20:[address] head wo con* [id number] Routine Cat Scan 04/18/22 12:10 Completed XR KUB portable [id number] Routine Exams 04/18/22 08:50 Completed XR chest 1V portable [id number] Routine Exams 04/18/22 07:57 Completed XR chest 1V portable [id number] Routine Exams 04/20/22 08:31 Completed XR chest 1V portable [id number] Stat Exams 04/16/22 12:06 Completed XR chest 1V portable [id number] Stat Exams 04/17/22 20:49 Completed MR cervical spin wo con* [id number] Routine MRI 04/16/22 08:53 Completed MR head wo con* [id number] Routine MRI 04/16/22 02:09 Completed CV. echo complete* [id number] Routine Ultrasound 04/19/22 06:00 Completed Pending at discharge Category Date Time Status Ganglioside GD1b Antibody IgG Routine Lab 04/16/22 14:52 Results Ganglioside GD1b Antibody IgM Routine Lab 04/16/22 14:52 Results Myelin Associated Gly w/Reflex Routine Lab 04/16/22 14:52 Results Sputum Culture and Gram Stain Routine Lab 04/17/22 21:03 Uncollected Radiology Impressions Head MRI 04/16/22 02:09 IMPRESSION: 1. No diffusion-weighted abnormality or acute infarct. 2. Very minimal atrophy and small vessel ischemic disease. Cervical Spine MRI 04/16/22 08:53 IMPRESSION: 1. No significant central or foraminal stenosis. 2. No signal abnormality within the cord. 3. Mild facet arthritis as above. No stenosis. KUB X-Ray 04/18/22 08:50 IMPRESSION: 1. Bowel gas pattern is mildly distended but nonobstructive. 2. Mild stool burden. Chest CTA 04/18/22 12:00 IMPRESSION: There is consolidation in the right middle and bilateral lower lobes of the lung consistent with atelectasis and/or pneumonia. Head CT 04/18/22 12:10 IMPRESSION: No acute intracranial abnormality. Chest X-Ray 04/20/22 08:31 IMPRESSION: 1. No acute process noted. 2. Chronic right basal plaque atelectasis. Decreased lung volumes secondary to limited inspiration. No significant change. Laboratory Results WBC 13.8 10^3/uL (4.0-10.0) H 04/30/22 03:56 RBC 5.30 10^6/uL (4.1-5.3) 04/30/22 03:56 Hgb 16.2 g/dL (11.7-16.6) 04/30/22 03:56 Hct 47.3 % (42.0-52.0) 04/30/22 03:56 MCV 89.2 fl (80-94) 04/30/22 03:56 MCH 30.6 pg (28.0-34.0) 04/30/22 03:56 MCHC 34.2 g/dL (30.0-36.0) 04/30/22 03:56 RDW 12.1 % (12.1-15.1) 04/30/22 03:56 Plt Count 388 10^3/cmm (130-400) 04/30/22 03:56 MPV 9.2 fL (7.4-10.4) 04/30/22 03:56 Neut % (Auto) 66.0 % 04/30/22 03:56 Lymph % (Auto) 24.6 % 04/30/22 03:56 [place] % (Auto) 6.8 % 04/30/22 03:56 Eos % (Auto) 1.7 % 04/30/22 03:56 Baso % (Auto) 0.4 % 04/30/22 03:56 Neut # (Auto) 9.12 10^3/uL (1.8-7.7) H 04/30/22 03:56 Lymph # (Auto) 3.4 10^3/uL (0.8-4.8) 04/30/22 03:56 [place] # (Auto) 0.9 10^3/uL (0.2-0.9) 04/30/22 03:56 Eos # (Auto) 0.2 10^3/uL (0.0-0.8) 04/30/22 03:56 Baso # (Auto) 0.1 10^3/uL (0.0-0.1) 04/30/22 03:56 Nucleated RBC % (auto) 0 % 04/30/22 03:56 Nucleated RBCs # 0.0 /100WBC 04/30/22 03:56 ESR 18 mm/hr (0-10) H 04/16/22 14:52 D-Dimer 0.77 ug/mIFEU (0-0.59) H 04/18/22 10:31 Specimen Type Arterial 04/19/22 04:00 Sample Site Radial, right 04/19/22 04:00 ABG pH 7.43 (7.35-7.45) 04/19/22 04:00 ABG pCO2 35.2 mmHg (35-45) 04/19/22 04:00 ABG pO2 93.6 mmHg (80.0-100.0) 04/19/22 04:00 ABG HCO3 23.1 mmol/L (22-26) 04/19/22 04:00 ABG O2 Saturation 97.6 04/18/22 09:55 ABG Base Excess -0.8 mmol/L (-2.0-2.0) 04/19/22 04:00 Joel Test Pos 04/19/22 04:00 A-a O2 Gradient 73.5 mmHg (5-10) H 04/18/22 09:55 Hematocrit 45.3 % (42-52) 04/19/22 04:00 Hgb O2 Saturation 96.8 % (95-100) 04/18/22 09:55 Carboxyhemoglobin < 1.0 %THgb (0.4-20.1) 04/18/22 09:55 Methemoglobin 0.1 % (0.4-1.5) L 04/18/22 09:55 Total Hemoglobin 15.8 g/dL (14-18) 04/18/22 09:55 Sodium 126.0 mmol/L (131-143) L 04/18/22 09:55 Potassium 3.9 mmol/L (3.5-5.0) 04/18/22 09:55 Glucose 177.0 mg/dL (70-115) H 04/18/22 09:55 Ionized Calcium 1.1 mmol/L (1.1-1.4) 04/18/22 09:55 O2 Delivery Device Nc 04/19/22 04:00 O2 Liters/Min 35.0 % 04/19/22 04:00 FiO2 60.0 % 04/19/22 04:00 First Aid Trainer MARLA [email or web address] 04/19/22 04:00 Sodium 130 mmol/L (136-145) L 04/30/22 03:56 Potassium 4.1 mmol/L (3.5-5.1) 04/30/22 03:56 Chloride 99 mmol/L (98-107) 04/30/22 03:56 Carbon Dioxide 22 mmol/L (22-29) 04/30/22 03:56 Anion Gap 13.1 (5-19) 04/30/22 03:56 BUN 24 mg/dL (8-23) H 04/30/22 03:56 Creatinine 0.8 mg/dL (0.7-1.2) 04/30/22 03:56 GFR Calculation 98.0 mL/min (90-130) 04/30/22 03:56 Glucose 110 mg/dL (65-115) 04/30/22 03:56 POC Glucose 146 mg/dL (70-110) H 04/29/22 11:06 Calculated Osmolality 275 mOsm/kg (285-295) L 04/30/22 03:56 Lactate 0.9 mmol/L (0.5-2.2) 04/19/22 04:24 Calcium 9.5 mg/dL (8.5-10.5) 04/30/22 03:56 Phosphorus 1.9 mg/dL (2.5-4.5) L 04/19/22 04:24 Magnesium 2.0 mg/dL (1.7-2.3) 04/19/22 04:24 Total Bilirubin 0.5 mg/dL (0.15-1.2) 04/30/22 03:56 AST 43 U/L (0-40) H 04/30/22 03:56 ALT 73 U/L (0-41) H 04/30/22 03:56 Alkaline Phosphatase 108 U/L (40-130) 04/30/22 03:56 Troponin T Baseline 21 ng/L (0-15) H 04/18/22 10:31 Troponin T 120 Minute 24.52 ng/L (0-15) H 04/18/22 11:52 Delta Troponin T 3.52 ABS# (0-10) 04/18/22 11:52 Troponin T Hi Sens 6Hr 21.47 ng/L (0-15) H 04/18/22 16:35 Troponin T Hi Sens 6Hr Delta 0.47 ng/L (0-12) 04/18/22 16:35 C-Reactive Protein 38.7 mg/L (0.0-4.9) H 04/19/22 04:24 NT-Pro-B Natriuret Pep 498 pg/mL (0-125) H 04/19/22 04:24 Total Protein 7.6 g/dL (6.6-8.7) 04/30/22 03:56 Albumin 3.1 g/dL (3.5-5.2) L 04/30/22 03:56 Globulin 4.5 g/dL (1.3-4.6) 04/30/22 03:56 Vitamin B12 150 pg/mL (232-1245) L 04/16/22 04:58 Folate 8.2 ng/mL (4.5-32.2) 04/16/22 14:52 Procalcitonin 0.32 ng/mL (0-0.5) 04/19/22 04:24 TSH 1.68 uIU/mL (0.27-4.20) 04/16/22 04:58 Urine Color Yellow (Yellow) 04/15/22 21:35 Urine Appearance Clear (CLEAR) 04/15/22 21:35 Urine pH 7 (5-7) 04/15/22 21:35 Ur Specific [place] 1.010 (1.005-1.030) 04/15/22 21:35 Urine Protein Neg (Negative) 04/15/22 21:35 Urine Glucose (UA) Norm (Normal) 04/15/22 21:35 Urine Ketones Negative (Negative) 04/15/22 21:35 Urine Blood Neg (Negative) 04/15/22 21:35 Urine Nitrate Negative (Negative) 04/15/22 21:35 Urine Bilirubin Neg (Negative) 04/15/22 21:35 Urine Urobilinogen Norm mg/dL (Negative) 04/15/22 21:35 Ur Leukocyte Esterase Negative (Negative) 04/15/22 21:35 Ur Random Sodium 129 mmol/L 04/17/22 14:26 Ur Random Potassium 65 mmol/L 04/17/22 14:26 Ur Random Chloride 126 mmol/L 04/17/22 14:26 Urine Creatinine 103 mg/dL (39-259) 04/17/22 14:26 Fluid LDH 21 U/L 04/15/22 23:30 CSF Appearance Clear (CLEAR) 04/15/22 23:30 CSF Color Colorless (COLORLESS) 04/15/22 23:30 CSF WBC 2 /uL (0-5) 04/15/22 23:30 CSF RBC 0 10^3/uL (0-0) 04/15/22 23:30 CSF Mononuclear # Auto 0.001 10^3/uL (50-90) L 04/15/22 23:30 CSF Mononuclear WBCs % 50 % (50-90) 04/15/22 23:30 CSF Polynuclear WBCs # 0.001 10^3/uL (0-10) 04/15/22 23:30 CSF Polynuclear WBCs % 50 % (0-10) H 04/15/22 23:30 CSF Glucose 65 mg/dL (40-70) 04/15/22 23:30 CSF Total Protein 70 mg/dL (15-45) H 04/15/22 23:30 Nasal Influ A H1 2008 PCR Not detected (NOT DETECT) 04/17/22 11:55 Vancomycin Trough 12.0 ug/mL (10-15) 04/22/22 13:37 GD1b IgG Antibody <1:100 titer (<1:100) 04/16/22 14:52 GD1b IgM Antibody <1:800 titer (< OR = 1:800) 04/16/22 14:52 MAG IgM (Western Blot) Negative (NEGATIVE) 04/16/22 14:52 Adenovirus (PCR) Not detected (NOT DETECT) 04/15/22 21:50 Lyme Ab (Western Blot) <0.90 index 04/16/22 14:52 Lyme IgG (Western Blot 2) <0.90 index 04/16/22 14:52 C. pneumoniae DNA (PCR) Not detected (NOT DETECT) 04/15/22 21:50 Coronavirus 229E (PCR) Not detected (NOT DETECT) 04/17/22 11:55 E. chaffeensis IgG Ab <1:64 04/16/22 14:52 E. chaffeensis IgM Ab <1:20 04/16/22 14:52 E. chaffeensis Interp See note 04/16/22 14:52 E. chaffeensis Comment Not Reportable 04/16/22 14:52 HIV 1&2 Ab & HIV 1 Ag Non-reactive (Non-Reactiv) 04/16/22 14:52 HIV 1&2 Antibody Non-reactive (Non-Reactiv) 04/16/22 14:52 Human Metapneumovir PCR Not detected (NOT DETECT) 04/15/22 21:50 Influenza A (H1) PCR Not detected (NOT DETECT) 04/17/22 11:55 Influenza A (H3) PCR Not detected (NOT DETECT) 04/17/22 11:55 Influenza Type A Ag Cancelled 04/17/22 11:55 Influenza Type A (PCR) Not detected (NOT DETECT) 04/17/22 11:55 Influenza Type B Ag Cancelled 04/17/22 11:55 Influenza Type B (PCR) Not detected (NOT DETECT) 04/17/22 11:55 M. pneumoniae (PCR) Not detected (NOT DETECT) 04/15/22 21:50 Parainfluenza 1 (PCR) Not detected (NOT DETECT) 04/15/22 21:50 Parainfluenza 2 (PCR) Not detected (NOT DETECT) 04/15/22 21:50 Parainfluenza 3 (PCR) Not detected (NOT DETECT) 04/15/22 21:50 Parainfluenza 4 (PCR) Not detected (NOT DETECT) 04/15/22 21:50 RSV Type A (PCR) Not detected (NOT DETECT) 04/15/22 21:50 RSV Type B (PCR) Not detected (NOT DETECT) 04/15/22 21:50 Entero/Rhino (PCR) Not detected (NOT DETECT) 04/15/22 21:50 Rickettsia IgG Ab Not detected 04/16/22 14:52 Rickettsia IgM Ab Not detected 04/16/22 14:52 SARS-CoV-2 (PCR) Not detected (NOT DETECT) 04/17/22 11:55 Vitals Last Vital Signs Temp 98.4 F 04/30/22 08:00 Pulse 86 04/30/22 12:00 Resp 16 04/30/22 12:00 BP 124/81 04/30/22 12:00 Pulse Ox 97 04/30/22 12:00 O2 Del Method 04/30/22 12:00 O2 Flow Rate 30 04/20/22 08:55 FiO2 40 04/24/22 20:00 Discharge Plan Discharge Patient Disposition: Xfer Inpatient Rehab Fac Condition: Stable Prescriptions: New amlodipine 10 mg Tablet 5 mg PO Q24H 30 Days Qty: 15 0RF docusate sodium 100 mg Capsule 100 mg PO BID 30 Days Qty: 60 0RF allopurinol 100 mg Tablet 100 mg PO DAILY 30 Days Qty: 30 0RF clonidine HCl 0.1 mg Tablet 0.1 mg PO BID 30 Days Qty: 60 0RF quetiapine 25 mg Tablet 25 mg PO BID 30 Days Qty: 60 0RF lidocaine 5 % Adhesive Patch,Medicated 1 patch topical [id number] 30 Days Qty: 30 0RF hydralazine 25 mg Tablet 25 mg PO TID 30 Days Qty: 90 0RF cyanocobalamin (vitamin B-12) [Vitamin B-12] 1,000 mcg Tablet 500 mcg PO DAILY 30 Days Qty: 30 0RF thiamine mononitrate (vit B1) [Vitamin B-1 (mononitrate)] 100 mg Tablet 100 mg PO DAILY 30 Days Qty: 30 0RF lactulose 20 gram/30 mL Solution 10 g PO TID PRN (Reason: constipation) 10 Days Qty: 1350 0RF Continued ondansetron 4 mg tablet,disintegrating 4 mg PO Q8H PRN (Reason: nausea and vomiting) Qty: 15 0RF Tylenol 325 mg Tablet 650 mg PO QID PRN (Reason: Pain) Discontinued meclizine 25 mg tablet 25 mg PO TID PRN (Reason: dizziness) Qty: 20 0RF allopurinol 300 mg Tablet 300 mg PO DAILY Discharge Orders: Discharge Order (Routine); Ordered 04/30/22 Ordered By: Ninfa Morrison Discharge Diet: As Directed Discharge Activity: Increase activity as tolerated and As per PT/OT instructions Patient Instructions: Guillain-Atwood Syndrome (GEN), Opioid Safety Discharge Attestations Time Spent in Discharge Care*: greater than 30 min Quality Metrics Clinical Quality Measures [ No reported AMI, CVA or VTE this stay] Coding Level of Care Code Acute Chg FW DC note Diagnoses Acute respiratory failure with hypoxia J96.01 Acute encephalopathy G93.40 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
== END 2022-04-30 16:25 | DRG 94 ==
LOC: ER 04-16 00:51 → MEDSURG 04-16 01:29 → ICU 04-17 09:52 → MEDSURG 04-25 13:45
PROVIDERS: Family Medicine; Internal Medicine; Internal Medicine Nephrology; Admitting Provider Internal Medicine; Emergency Provider Emergency Medicine; Visit Provider Student in an Organized Health Care Education/Training Program
DX: G61.0 Guillain-Barre syndrome (principal); J18.9 Pneumonia, unspecified organism; J96.01 Acute respiratory failure with hypoxia; G93.40 Encephalopathy, unspecified; E22.2 Syndrome of inappropriate secretion of antidiuretic hormone; E87.4 Mixed disorder of acid-base balance; I10 Essential (primary) hypertension; I95.9 Hypotension, unspecified; E53.8 Deficiency of other specified B group vitamins; I16.0 Hypertensive urgency; Z75.1 Person awaiting admission to adequate facility elsewhere; F41.9 Anxiety disorder, unspecified; R33.9 Retention of urine, unspecified; K59.00 Constipation, unspecified; A49.01 Methicillin susceptible Staphylococcus aureus infection, unspecified site; Z87.01 Personal history of pneumonia (recurrent); Z86.16 Personal history of COVID-19; M10.9 Gout, unspecified
CPT/HCPCS: 12345; 36415; 36416; 36600; 51702; 51798; 62270; 70450; 70551; 71045; 71275; 72141; 74018; 80048; 80051; 80053; 80202; 80503; 81003; 82330; 82436; 82570; 82607; 82746; 82803; 82805; 82945; 82962; 83520; 83605; 83615; 83735; 83880; 84100; 84133; 84145; 84157; 84181; 84295; 84300; 84443; 84484; 85025; 85378; 85651; 86140; 86617; 86618; 86666; 86757; 87040; 87070; 87075; 87077; 87186; 87205; 87486; 87581; 87631; 87633; 87635; 87806; 89050; 92507; 92523; 92526; 92610; 93005; 93306; 94640; 96372; 97110; 97116; 97124; 97162; 97166; 97530; 97535; J0360; J1200; J1459; J1650; J1885; J2060; J2270; J2405; J2543; J3370; J3411; J3420; J3490; J7030; J7060; J7131; J7512; J7626; J8540; Q3014; Q9967